=== PATIENT | male | born 1950 | race African-American/Black ===

== ENCOUNTER 2018-07-03 12:17 | Inpatient (IN) | payer MEDICARE, MEDICAID ==
[~2018-07-03] VITALS: Ht 175.3 cm; Wt 104.8 kg
[~2018-07-03 12:17] MED LIST: ASPI-1159 PO; FURO-152 PO; INSU100V3 SUBCUT; LISI2.5T47 PO
[2018-07-03] MEDS ORDERED: FUROSEMIDE 40MG/4ML VIAL IV ONE (12:30)
[2018-07-03] MEDS ORDERED: NITROGLYCERIN OINT 1GM/INCH UDPKT TD ONE (12:30)
[2018-07-03] MEDS ORDERED: ASPIRIN 81MG TABLET PO ONE (12:30)
[2018-07-03] MEDS ORDERED: METOLAZONE 2.5MG TABLET PO ONE (12:30)
[2018-07-03 14:15] LABS: BASOPHILS % 0.6 % (0.0-2.0); EOSINOPHILS % 1.5 % (0.0-5.0); HEMATOCRIT. 41.9 % (42.0-52.0); HEMOGLOBIN. 13.6 g/dL (14.0-18.0); LYMPHOCYTES % 14.8 % (20.0-50.0); MEAN CORPUSCULAR HEMOGLOBIN 30.4 pg (28.0-32.0); MEAN CORPUSCULAR VOLUME 93.2 fL (80.0-94.0); MEAN PLATELET VOLUME 7.7 fl (7.4-10.4); MONOCYTES % 12.3 % (2.0-8.0); NEUTROPHILS % 70.8 % (40.0-76.0); PLATELET 202 x1000/uL (130-400); RED BLOOD CELL COUNT 4.49 mill/uL (4.7-6.1); RED CELL DISTRIBUTION WIDTH 14.9 % (11.6-14.6)
[2018-07-03 14:23] LABS: CHLORIDE 95 mEq/L (98-107)
[2018-07-03 14:24] LABS: INR 1.1; PARTIAL THROMBOPLASTIN TIME 28.1 sec (23.4-31.0); PROTHROMBIN TIME 10.9 sec (9.1-11.1)
[2018-07-03 15:14] LABS: CLARITY URINE CLEAR (CLEAR); COLOR URINE YELLOW (YELLOW); KETONES URINE NEGATIVE (NEGATIVE); LEUKOCYTE ESTERASE URINE NEGATIVE (NEGATIVE); NITRITE URINE NEGATIVE (NEGATIVE); OCCULT BLOOD URINE NEGATIVE (NEGATIVE); PROTEIN URINE TRACE (NEGATIVE)
[2018-07-03] MEDS ORDERED: IPRATROPIUM/ALBUTEROL 0.5-3(2.5)MG/3ML NEB HHN PRN (16:30)
[2018-07-03 17:08] LABS: BG BASE EXCESS 7.6 mmol/L (-2.0-2.0); BG BILEVEL POS AIRWAY PRESSURE 15/5; BG CARBOXYHEMOGLOBIN 2.4 % (0.5-1.5); BG DEOXYHEMOGLOBIN 0.4 % (0.0-5.0); BG FRACTION INSPIRED OXYGEN 100; BG HCO3 ACT 35.7 mmol/L (22.0-26.0); BG METHEMOGLOBIN 0.4 % (0.0-1.5); BG OXYGEN SATURATION 99.6 % (92.0-98.5); BG OXYHEMOGLOBIN 96.8 % (94.0-97.0); BG PCO2 66.6 mmHg (35.0-45.0); BG PH 7.347 (7.350-7.450); BG PO2 342.5 mmHg (75.0-100.0); BG SAMPLE SITE RIGHT RADIAL; BG TOTAL HEMOGLOBIN 13.9 g/dL (12.0-18.0); BG VENT MODE MASK - BIPAP; BG VENT RATE 16 set
[2018-07-03 17:54] VITALS: BP 126/68
[2018-07-03 18:17] VITALS: BP 126/68
[2018-07-03] MEDS ORDERED: IPRATROPIUM/ALBUTEROL 0.5-3(2.5)MG/3ML NEB INH PRN (19:15)
[2018-07-03] MEDS ORDERED: DEXTROSE 50% WATER 50ML SYRINGE IV PRN (19:15)
[2018-07-03] MEDS ORDERED: ACETAMINOPHEN 325MG TABLET PO PRN (19:15)
[2018-07-03] MEDS ORDERED: DIPHENHYDRAMINE 50MG/ML VIAL IV PRN (19:15)
[2018-07-03] MEDS ORDERED: CLONIDINE 0.1MG TABLET PO PRN (19:15)
[2018-07-03] MEDS ORDERED: GUAIFENESIN 200MG/10ML SUGAR FREE UDC PO PRN (19:15)
[2018-07-03] MEDS ORDERED: MAGNESIUM/ALUMINUM HYDROXIDE/SIMETHICONE 30ML UDC PO PRN (19:15)
[2018-07-03] MEDS ORDERED: ONDANSETRON HCL 4MG/2ML VIAL IV PRN (19:15)
[2018-07-03 19:43] LABS: CLARITY URINE CLEAR (CLEAR); COLOR URINE YELLOW (YELLOW); KETONES URINE NEGATIVE (NEGATIVE); LEUKOCYTE ESTERASE URINE NEGATIVE (NEGATIVE); NITRITE URINE NEGATIVE (NEGATIVE); OCCULT BLOOD URINE NEGATIVE (NEGATIVE); PROTEIN URINE NEGATIVE (NEGATIVE); SPECIFIC GRAVITY URINE 1.007 (1.005-1.030)
[2018-07-03 20:00] VITALS: BP 126/68
[2018-07-03] MEDS ORDERED: IPRATROPIUM/ALBUTEROL 0.5-3(2.5)MG/3ML NEB HHN SCH (20:00)
[2018-07-03 20:03] LABS: *BARBITURATES SCREEN URINE NEGATIVE (NEGATIVE); *BENZODIAZEPINES SCREEN URINE NEGATIVE (NEGATIVE); *COCAINE SCREEN URINE NEGATIVE (NEGATIVE); METHADONE URINE SCREEN PRESUMTIVE POSITIVE (NEGATIVE); OPIATES URINE SCREEN PRESUMTIVE POSITIVE (NEGATIVE)
[2018-07-03 20:04] LABS: *AMPHETAMINES SCREEN URINE NEGATIVE (NEGATIVE); CANNABINOID URINE SCREEN NEGATIVE (NEGATIVE); PHENCYCLIDINE URINE SCREEN NEGATIVE (NEGATIVE)
[2018-07-03 20:09] LABS: T4 FREE 1.08 ng/dL (0.76-1.46)
[2018-07-03] MEDS: BLOOD SUGAR DIAGNOSTIC STRIP TEST SCH (21:00)
[2018-07-03] MEDS: INSULIN LISPRO 100 UNITS/ML SUBCUT SCH (21:00)
[2018-07-03] MEDS: FAMOTIDINE 20MG TABLET PO SCH (21:00)
[2018-07-03] MEDS ORDERED: AMLODIPINE 2.5MG TABLET PO SCH (21:00)
[2018-07-03] MEDS: BUDESONIDE 0.5MG/2ML NEB HHN SCH (21:43)
[2018-07-03] MEDS: IPRATROPIUM/ALBUTEROL 0.5-3(2.5)MG/3ML NEB HHN SCH (21:43)
[2018-07-03 22:00] VITALS: BP 125/72
[2018-07-03] MEDS: INSULIN GLARGINE UD 100 UNITS/ML SYR SUBCUT SCH (22:00)
[2018-07-03] MEDS: SODIUM CHLORIDE 0.9% INJ 3ML FLUSH IVF SCH (22:00)
[2018-07-03] MEDS: METOLAZONE 10MG TABLET PO SCH (22:30)
[2018-07-04] VITALS (13 sets, daily range): BP systolic 94–138; BP diastolic 58–78
[2018-07-04] MEDS: IPRATROPIUM/ALBUTEROL 0.5-3(2.5)MG/3ML NEB HHN SCH ×4 (01:36→21:12)
[2018-07-04] MEDS: SODIUM CHLORIDE 0.9% INJ 3ML FLUSH IVF SCH ×3 (06:38→22:11)
[2018-07-04 07:05] LABS: CHLORIDE 96 mEq/L (98-107)
[2018-07-04 07:14] LABS: LDL CHOLESTEROL 59 mg/dL (5-100)
[2018-07-04 07:16] LABS: HDL CHOLESTEROL 53 mg/dL (40-59)
[2018-07-04 07:18] LABS: HEMATOCRIT. 39.4 % (42.0-52.0); HEMOGLOBIN. 12.9 g/dL (14.0-18.0); MEAN CORPUSCULAR HEMOGLOBIN 30.5 pg (28.0-32.0); MEAN CORPUSCULAR VOLUME 93.3 fL (80.0-94.0); PLATELET 181 x1000/uL (130-400); RED BLOOD CELL COUNT 4.22 mill/uL (4.7-6.1); RED CELL DISTRIBUTION WIDTH 14.9 % (11.6-14.6)
[2018-07-04] MEDS: INSULIN LISPRO 100 UNITS/ML SUBCUT SCH ×4 (07:20→21:00)
[2018-07-04] MEDS: METOLAZONE 10MG TABLET PO SCH (08:06)
[2018-07-04] MEDS: ASPIRIN 81MG EC TABLET PO SCH (08:42)
[2018-07-04] MEDS: FUROSEMIDE 40MG/4ML VIAL IVP SCH (08:42)
[2018-07-04] MEDS: BUDESONIDE 0.5MG/2ML NEB HHN SCH ×2 (08:58→21:12)
[2018-07-04] MEDS ORDERED: ENOXAPARIN 40MG/0.4ML SYR SUBCUT SCH (09:00)
[2018-07-04] MEDS ORDERED: AMLODIPINE 2.5MG TABLET PO SCH ×2 (09:00)
[2018-07-04] MEDS: INSULIN GLARGINE UD 100 UNITS/ML SYR SUBCUT SCH ×2 (09:39→21:58)
[2018-07-04] MEDS: BLOOD SUGAR DIAGNOSTIC STRIP TEST SCH ×3 (11:50→21:00)
[2018-07-04] MEDS: METHADONE HCL 10MG TABLET PO SCH (13:44)
[2018-07-04] MEDS: TAMSULOSIN HCL 0.4MG SR CAPSULE PO SCH (13:45)
[2018-07-04] MEDS ORDERED: HEPARIN 100 UNITS/1 ML VIAL IVF PRN (15:15)
[2018-07-04 15:58] LABS: BG BASE EXCESS 4.7 mmol/L (-2.0-2.0); BG CARBOXYHEMOGLOBIN 1.2 % (0.5-1.5); BG DEOXYHEMOGLOBIN 23.3 % (0.0-5.0); BG HCO3 ACT 31.1 mmol/L (22.0-26.0); BG METHEMOGLOBIN 0.3 % (0.0-1.5); BG OXYGEN SATURATION 76.3 % (92.0-98.5); BG OXYHEMOGLOBIN 75.2 % (94.0-97.0); BG PCO2 53.3 mmHg (35.0-45.0); BG PH 7.384 (7.350-7.450); BG PO2 43.1 mmHg (75.0-100.0); BG SAMPLE SITE LEFT RADIAL; BG TOTAL HEMOGLOBIN 14.5 g/dL (12.0-18.0); BG VENT MODE NASAL CANNULA
[2018-07-04 20:48] LABS: PLATELET ESTIMATE NORMAL
[2018-07-04] MEDS: ENOXAPARIN 30MG/0.3ML SYR SUBCUT SCH (21:00)
[2018-07-04] MEDS: FAMOTIDINE 20MG TABLET PO SCH (21:56)
[2018-07-04] MEDS: AMLODIPINE 2.5MG TABLET PO SCH (22:06)
[2018-07-05] VITALS (12 sets, daily range): BP systolic 106–145; BP diastolic 57–89
[2018-07-05] MEDS: IPRATROPIUM/ALBUTEROL 0.5-3(2.5)MG/3ML NEB HHN SCH ×5 (00:12→21:00)
[2018-07-05] MEDS: SODIUM CHLORIDE 0.9% INJ 3ML FLUSH IVF SCH ×3 (06:54→21:46)
[2018-07-05] MEDS: BLOOD SUGAR DIAGNOSTIC STRIP TEST SCH ×4 (06:54→21:43)
[2018-07-05] MEDS: INSULIN LISPRO 100 UNITS/ML SUBCUT SCH ×4 (07:20→21:00)
[2018-07-05] MEDS: BUDESONIDE 0.5MG/2ML NEB HHN SCH ×2 (07:45→21:00)
[2018-07-05 07:50] LABS: HEMATOCRIT. 40.9 % (42.0-52.0); HEMOGLOBIN. 13.2 g/dL (14.0-18.0); MEAN CORPUSCULAR HEMOGLOBIN 29.8 pg (28.0-32.0); MEAN CORPUSCULAR VOLUME 92.1 fL (80.0-94.0); MEAN PLATELET VOLUME 7.8 fl (7.4-10.4); PLATELET 182 x1000/uL (130-400); RED BLOOD CELL COUNT 4.44 mill/uL (4.7-6.1); RED CELL DISTRIBUTION WIDTH 14.2 % (11.6-14.6)
[2018-07-05 07:58] LABS: CHLORIDE 92 mEq/L (98-107)
[2018-07-05 08:05] LABS: CREATINE KINASE MB FRACTION 2.2 ng/mL (0.5-3.6); LDL CHOLESTEROL 63 mg/dL (5-100)
[2018-07-05 08:06] LABS: CREATINE KINASE 170 IU/L (39-308)
[2018-07-05 08:07] LABS: HDL CHOLESTEROL 56 mg/dL (40-59)
[2018-07-05] MEDS: TAMSULOSIN HCL 0.4MG SR CAPSULE PO SCH (08:31)
[2018-07-05] MEDS: METHADONE HCL 10MG TABLET PO SCH (08:31)
[2018-07-05] MEDS: ASPIRIN 81MG EC TABLET PO SCH (08:32)
[2018-07-05] MEDS: AMLODIPINE 2.5MG TABLET PO SCH ×3 (08:32→21:26)
[2018-07-05] MEDS: FUROSEMIDE 40MG/4ML VIAL IVP SCH (08:32)
[2018-07-05] MEDS: ENOXAPARIN 30MG/0.3ML SYR SUBCUT SCH ×2 (08:33→21:26)
[2018-07-05] MEDS: METOLAZONE 10MG TABLET PO SCH (08:33)
[2018-07-05 09:30] LABS: BG CARBOXYHEMOGLOBIN 1.2 % (0.5-1.5); BG DEOXYHEMOGLOBIN 14.6 % (0.0-5.0); BG FRACTION INSPIRED OXYGEN 34; BG HCO3 ACT 37.5 mmol/L (22.0-26.0); BG METHEMOGLOBIN 0.3 % (0.0-1.5); BG OXYGEN SATURATION 85.2 % (92.0-98.5); BG OXYHEMOGLOBIN 83.9 % (94.0-97.0); BG PCO2 62.3 mmHg (35.0-45.0); BG PH 7.397 (7.350-7.450); BG PO2 52.9 mmHg (75.0-100.0); BG SAMPLE SITE RIGHT RADIAL; BG TOTAL HEMOGLOBIN 14.9 g/dL (12.0-18.0); BG VENT MODE NASAL CANNULA
[2018-07-05] MEDS: INSULIN GLARGINE UD 100 UNITS/ML SYR SUBCUT SCH ×2 (10:00→21:46)
[2018-07-05 14:02] LABS: PLATELET ESTIMATE NORMAL
[2018-07-05] MEDS: FAMOTIDINE 20MG TABLET PO SCH (21:25)
[2018-07-06] VITALS (11 sets, daily range): BP systolic 97–124; BP diastolic 53–93
[2018-07-06] MEDS: IPRATROPIUM/ALBUTEROL 0.5-3(2.5)MG/3ML NEB HHN SCH ×5 (01:43→20:40)
[2018-07-06] MEDS: BLOOD SUGAR DIAGNOSTIC STRIP TEST SCH ×4 (06:58→21:07)
[2018-07-06] MEDS: INSULIN LISPRO 100 UNITS/ML SUBCUT SCH ×4 (06:58→21:00)
[2018-07-06] MEDS: SODIUM CHLORIDE 0.9% INJ 3ML FLUSH IVF SCH ×3 (06:58→22:00)
[2018-07-06 07:26] LABS: CHLORIDE 93 mEq/L (98-107)
[2018-07-06] MEDS: TAMSULOSIN HCL 0.4MG SR CAPSULE PO SCH (08:36)
[2018-07-06] MEDS: METHADONE HCL 10MG TABLET PO SCH (08:36)
[2018-07-06] MEDS: FUROSEMIDE 40MG/4ML VIAL IVP SCH (08:37)
[2018-07-06] MEDS: ASPIRIN 81MG EC TABLET PO SCH (08:37)
[2018-07-06] MEDS: ENOXAPARIN 30MG/0.3ML SYR SUBCUT SCH ×2 (08:37→21:09)
[2018-07-06] MEDS: METOLAZONE 10MG TABLET PO SCH (08:37)
[2018-07-06] MEDS: AMLODIPINE 2.5MG TABLET PO SCH ×2 (08:37→21:00)
[2018-07-06] MEDS: BUDESONIDE 0.5MG/2ML NEB HHN SCH ×2 (09:08→20:40)
[2018-07-06] MEDS: INSULIN GLARGINE UD 100 UNITS/ML SYR SUBCUT SCH ×2 (10:35→21:21)
[2018-07-06] MEDS: FAMOTIDINE 20MG TABLET PO SCH (21:08)
[2018-07-07] VITALS (12 sets, daily range): BP systolic 98–155; BP diastolic 49–96
[2018-07-07] MEDS: IPRATROPIUM/ALBUTEROL 0.5-3(2.5)MG/3ML NEB HHN SCH ×5 (00:46→20:09)
[2018-07-07] MEDS: SODIUM CHLORIDE 0.9% INJ 3ML FLUSH IVF SCH ×3 (06:00→21:07)
[2018-07-07 07:04] LABS: HEMATOCRIT. 38.9 % (42.0-52.0); HEMOGLOBIN. 12.9 g/dL (14.0-18.0); MEAN CORPUSCULAR HEMOGLOBIN 30.3 pg (28.0-32.0); MEAN CORPUSCULAR VOLUME 91.4 fL (80.0-94.0); PLATELET 176 x1000/uL (130-400); RED BLOOD CELL COUNT 4.26 mill/uL (4.7-6.1); RED CELL DISTRIBUTION WIDTH 14.2 % (11.6-14.6)
[2018-07-07] MEDS: INSULIN LISPRO 100 UNITS/ML SUBCUT SCH ×4 (07:20→21:00)
[2018-07-07] MEDS: BLOOD SUGAR DIAGNOSTIC STRIP TEST SCH ×4 (07:26→21:07)
[2018-07-07 07:32] LABS: CHLORIDE 93 mEq/L (98-107)
[2018-07-07] MEDS: METOLAZONE 10MG TABLET PO SCH (08:03)
[2018-07-07] MEDS: METHADONE HCL 10MG TABLET PO SCH (08:04)
[2018-07-07] MEDS: ASPIRIN 81MG EC TABLET PO SCH (08:04)
[2018-07-07] MEDS: ENOXAPARIN 30MG/0.3ML SYR SUBCUT SCH ×2 (08:06→21:07)
[2018-07-07] MEDS: TAMSULOSIN HCL 0.4MG SR CAPSULE PO SCH (08:07)
[2018-07-07] MEDS: AMLODIPINE 2.5MG TABLET PO SCH ×2 (08:07→21:07)
[2018-07-07] MEDS: BUDESONIDE 0.5MG/2ML NEB HHN SCH ×2 (08:23→20:09)
[2018-07-07 09:51] LABS: PLATELET ESTIMATE NORMAL
[2018-07-07] MEDS: INSULIN GLARGINE UD 100 UNITS/ML SYR SUBCUT SCH ×2 (10:00→21:31)
[2018-07-07] MEDS: LIDOCAINE 5% PATCH TOP SCH (20:32)
[2018-07-07] MEDS: FAMOTIDINE 20MG TABLET PO SCH (21:07)
[2018-07-08] VITALS (9 sets, daily range): BP systolic 98–123; BP diastolic 47–74
[2018-07-08] MEDS: IPRATROPIUM/ALBUTEROL 0.5-3(2.5)MG/3ML NEB HHN SCH ×3 (02:09→13:41)
[2018-07-08] MEDS: SODIUM CHLORIDE 0.9% INJ 3ML FLUSH IVF SCH (05:05)
[2018-07-08] MEDS: BLOOD SUGAR DIAGNOSTIC STRIP TEST SCH ×2 (06:05→11:30)
[2018-07-08] MEDS: INSULIN LISPRO 100 UNITS/ML SUBCUT SCH ×2 (07:20→11:31)
[2018-07-08] MEDS: BUDESONIDE 0.5MG/2ML NEB HHN SCH (07:49)
[2018-07-08] MEDS: ENOXAPARIN 30MG/0.3ML SYR SUBCUT SCH (08:11)
[2018-07-08] MEDS: AMLODIPINE 2.5MG TABLET PO SCH (08:12)
[2018-07-08] MEDS: METOLAZONE 10MG TABLET PO SCH (08:12)
[2018-07-08] MEDS: ASPIRIN 81MG EC TABLET PO SCH (08:12)
[2018-07-08] MEDS: TAMSULOSIN HCL 0.4MG SR CAPSULE PO SCH (08:12)
[2018-07-08] MEDS: LIDOCAINE 5% PATCH TOP SCH (08:17)
[2018-07-08] MEDS: METHADONE HCL 10MG TABLET PO SCH (08:18)
[2018-07-08] MEDS: INSULIN GLARGINE UD 100 UNITS/ML SYR SUBCUT SCH (11:27)
== END 2018-07-08 14:12 | DRG 291 ==
LOC: ER 12:24 → 3WST 15:17 → ENRESERV 16:21 → EDBEDREQ 16:25
PROVIDERS: ADMIT Internal Medicine; ATTEND Internal Medicine
PROC: 5A09357 Assistance with Respiratory Ventilation, Less than 24 Consecutive Hours, Continuous Positive Airway Pressure (ICD-10-PCS; 2018-07-03)
PROC: 02HV33Z Insertion of Infusion Device into Superior Vena Cava, Percutaneous Approach (ICD-10-PCS; principal; 2018-07-04)
PROC: B548ZZA Ultrasonography of Superior Vena Cava, Guidance (ICD-10-PCS; 2018-07-04)
PROC: 5A09357 Assistance with Respiratory Ventilation, Less than 24 Consecutive Hours, Continuous Positive Airway Pressure (ICD-10-PCS; 2018-07-05)
PROC: 5A09357 Assistance with Respiratory Ventilation, Less than 24 Consecutive Hours, Continuous Positive Airway Pressure (ICD-10-PCS; 2018-07-07)
PROC: 5A09357 Assistance with Respiratory Ventilation, Less than 24 Consecutive Hours, Continuous Positive Airway Pressure (ICD-10-PCS; 2018-07-08)
DX: I11.0 Hypertensive heart disease with heart failure (principal); J96.00 Acute respiratory failure, unspecified whether with hypoxia or hypercapnia; J44.1 Chronic obstructive pulmonary disease with (acute) exacerbation; F11.20 Opioid dependence, uncomplicated; G82.20 Paraplegia, unspecified; I50.33 Acute on chronic diastolic (congestive) heart failure; E11.9 Type 2 diabetes mellitus without complications; D64.9 Anemia, unspecified; F17.210 Nicotine dependence, cigarettes, uncomplicated; G89.4 Chronic pain syndrome; M43.16 Spondylolisthesis, lumbar region; D72.819 Decreased white blood cell count, unspecified; R79.1 Abnormal coagulation profile; M48.061 Spinal stenosis, lumbar region without neurogenic claudication; Z79.4 Long term (current) use of insulin; Z82.49 Family history of ischemic heart disease and other diseases of the circulatory system; Z83.3 Family history of diabetes mellitus; Z87.01 Personal history of pneumonia (recurrent); Z79.899 Other long term (current) drug therapy; Z79.82 Long term (current) use of aspirin
CPT/HCPCS: 36415; 36569; 36600; 71045; 72148; 76937; 80048; 80053; 80061; 80305; 81003; 82375; 82550; 82553; 82805; 82962; 83036; 83735; 83880; 84439; 84443; 84484; 85025; 85379; 85610; 85730; 93005; 93306; 93970; 94640; 94660; 96374; 97110; 97116; 97162; 97166; 97530; 99285; C1725; C1769; C1892; J1642; J1650; J1815; J1940; J7620; J7626; L8514

== ENCOUNTER 2018-07-08 14:30 | Inpatient (IN) | payer MEDICARE, MEDICAID ==
[~2018-07-08] VITALS: Ht 175.3 cm; Wt 106.6 kg
[2018-07-08 14:29] VITALS: BP 103/60
[2018-07-08 15:00] VITALS: BP 103/60
[2018-07-08] MEDS ORDERED: CLONIDINE 0.1MG TABLET PO PRN (15:15)
[2018-07-08] MEDS ORDERED: DEXTROSE 50% WATER 50ML SYRINGE IV PRN (15:15)
[2018-07-08] MEDS ORDERED: ONDANSETRON HCL 4MG TABLET PO PRN (15:15)
[2018-07-08] MEDS ORDERED: GUAIFENESIN 200MG/10ML SUGAR FREE UDC PO PRN (15:15)
[2018-07-08] MEDS ORDERED: NA PHOS,M-B/NA PHOS,DI-BA ENEMA 118ML PR PRN (16:45)
[2018-07-08] MEDS ORDERED: LACTULOSE 20G/30ML UDC PO PRN (16:45)
[2018-07-08] MEDS ORDERED: BISACODYL 10MG SUPP PR PRN (16:45)
[2018-07-08] MEDS: BLOOD SUGAR DIAGNOSTIC STRIP TEST SCH ×2 (17:00→20:42)
[2018-07-08] MEDS: INSULIN LISPRO 100 UNITS/ML SUBCUT SCH ×2 (17:00→20:42)
[2018-07-08] MEDS ORDERED: DOCUSATE SODIUM 250MG CAPSULE PO SCH (17:00)
[2018-07-08 20:00] VITALS: BP 114/63
[2018-07-08] MEDS: ENOXAPARIN 30MG/0.3ML SYR SUBCUT SCH (20:39)
[2018-07-08] MEDS: POLYETHYLENE GLYCOL 3350 (17GM) 1 DOSE PACK PO SCH (20:41)
[2018-07-08] MEDS: AMLODIPINE 2.5MG TABLET PO SCH (20:42)
[2018-07-08] MEDS: IPRATROPIUM/ALBUTEROL 0.5-3(2.5)MG/3ML NEB HHN SCH (20:59)
[2018-07-08] MEDS ORDERED: FAMOTIDINE 20MG/2ML VIAL IV SCH (21:00)
[2018-07-08] MEDS: BUDESONIDE 0.5MG/2ML NEB HHN SCH (21:00)
[2018-07-08] MEDS: FAMOTIDINE 20MG TABLET PO SCH (21:54)
[2018-07-08] MEDS: INSULIN GLARGINE UD 100 UNITS/ML SYR SUBCUT SCH (22:00)
[2018-07-09] MEDS: ACETAMINOPHEN 325MG TABLET PO PRN (01:31)
[2018-07-09] MEDS: IPRATROPIUM/ALBUTEROL 0.5-3(2.5)MG/3ML NEB HHN SCH ×2 (02:14→21:07)
[2018-07-09] MEDS: BLOOD SUGAR DIAGNOSTIC STRIP TEST SCH ×4 (06:12→21:33)
[2018-07-09 08:00] VITALS: BP 117/68
[2018-07-09] MEDS: POLYETHYLENE GLYCOL 3350 (17GM) 1 DOSE PACK PO SCH ×2 (09:00→09:13)
[2018-07-09] MEDS: INSULIN LISPRO 100 UNITS/ML SUBCUT SCH ×4 (09:00→21:00)
[2018-07-09] MEDS: LIDOCAINE 5% PATCH TOP SCH (09:11)
[2018-07-09] MEDS: ENOXAPARIN 30MG/0.3ML SYR SUBCUT SCH ×2 (09:11→21:34)
[2018-07-09] MEDS: AMLODIPINE 2.5MG TABLET PO SCH ×2 (09:12→21:00)
[2018-07-09] MEDS: TAMSULOSIN HCL 0.4MG SR CAPSULE PO SCH (09:12)
[2018-07-09] MEDS: ASPIRIN 81MG EC TABLET PO SCH (09:12)
[2018-07-09] MEDS: DOCUSATE SODIUM 100MG CAPSULE PO SCH ×2 (09:12→17:15)
[2018-07-09] MEDS: SENNOSIDES 8.6MG TABLET PO SCH (09:12)
[2018-07-09] MEDS: METHADONE HCL 10MG TABLET PO SCH (09:13)
[2018-07-09 10:18] LABS: HEMATOCRIT 42.6 % (42.0-52.0); HEMOGLOBIN 13.8 g/dL (14.0-18.0); MEAN CORPUSCULAR HEMOGLOBIN 30.2 pg (28.0-32.0); MEAN CORPUSCULAR VOLUME 93.2 fL (80.0-94.0); PLATELET 180 x1000/uL (130-400); RED BLOOD CELL COUNT 4.57 mill/uL (4.7-6.1); RED CELL DISTRIBUTION WIDTH 14.6 % (11.6-14.6)
[2018-07-09] MEDS: METOLAZONE 10MG TABLET PO SCH (10:51)
[2018-07-09] MEDS: INSULIN GLARGINE UD 100 UNITS/ML SYR SUBCUT SCH ×2 (10:53→21:33)
[2018-07-09 11:05] LABS: CHLORIDE 94 mEq/L (98-107)
[2018-07-09] MEDS ORDERED: MAGNESIUM/ALUMINUM HYDROXIDE/SIMETHICONE 30ML UDC PO PRN (16:00)
[2018-07-09 20:00] VITALS: BP 91/52
[2018-07-09] MEDS: BUDESONIDE 0.5MG/2ML NEB HHN SCH (21:07)
[2018-07-09] MEDS: FAMOTIDINE 20MG TABLET PO SCH (21:34)
[2018-07-10] VITALS: BP 114/64
[2018-07-10] MEDS: IPRATROPIUM/ALBUTEROL 0.5-3(2.5)MG/3ML NEB HHN SCH ×5 (01:47→19:56)
[2018-07-10] MEDS: BLOOD SUGAR DIAGNOSTIC STRIP TEST SCH ×4 (06:26→21:16)
[2018-07-10] MEDS: INSULIN LISPRO 100 UNITS/ML SUBCUT SCH ×4 (06:26→21:00)
[2018-07-10] MEDS: BUDESONIDE 0.5MG/2ML NEB HHN SCH ×2 (07:14→19:56)
[2018-07-10 08:00] VITALS: BP 109/55
[2018-07-10] MEDS: ASPIRIN 81MG EC TABLET PO SCH (08:41)
[2018-07-10] MEDS: DOCUSATE SODIUM 100MG CAPSULE PO SCH ×2 (08:42→16:54)
[2018-07-10] MEDS: SENNOSIDES 8.6MG TABLET PO SCH (08:42)
[2018-07-10] MEDS: METOLAZONE 10MG TABLET PO SCH (08:42)
[2018-07-10] MEDS: TAMSULOSIN HCL 0.4MG SR CAPSULE PO SCH (08:42)
[2018-07-10] MEDS: METHADONE HCL 10MG TABLET PO SCH (08:43)
[2018-07-10] MEDS: ENOXAPARIN 30MG/0.3ML SYR SUBCUT SCH ×2 (08:44→21:15)
[2018-07-10] MEDS: LIDOCAINE 5% PATCH TOP SCH (08:44)
[2018-07-10] MEDS: POLYETHYLENE GLYCOL 3350 (17GM) 1 DOSE PACK PO SCH (08:46)
[2018-07-10] MEDS: AMLODIPINE 2.5MG TABLET PO SCH ×2 (08:47→21:00)
[2018-07-10] MEDS: INSULIN GLARGINE UD 100 UNITS/ML SYR SUBCUT SCH ×2 (10:25→21:17)
[2018-07-10 20:00] VITALS: BP 103/64
[2018-07-10] MEDS: ACETAMINOPHEN 325MG TABLET PO PRN (21:15)
[2018-07-10] MEDS: FAMOTIDINE 20MG TABLET PO SCH (21:15)
[2018-07-11 05:02] VITALS: BP 108/66
[2018-07-11 07:26] LABS: HEMATOCRIT. 42.5 % (42.0-52.0); HEMOGLOBIN. 13.9 g/dL (14.0-18.0); MEAN CORPUSCULAR HEMOGLOBIN 30.3 pg (28.0-32.0); MEAN CORPUSCULAR VOLUME 92.5 fL (80.0-94.0); MEAN PLATELET VOLUME 8.2 fl (7.4-10.4); PLATELET 197 x1000/uL (130-400); RED BLOOD CELL COUNT 4.59 mill/uL (4.7-6.1); RED CELL DISTRIBUTION WIDTH 14.2 % (11.6-14.6)
[2018-07-11 07:39] LABS: CHLORIDE 95 mEq/L (98-107)
[2018-07-11 07:45] LABS: PHOSPHORUS 3.4 mg/dL (2.5-4.9)
[2018-07-11 07:47] LABS: LDL CHOLESTEROL 71 mg/dL (5-100); TOTAL IRON BINDING CAPACITY 457 ug/dL (250-450)
[2018-07-11 07:48] LABS: HDL CHOLESTEROL 65 mg/dL (40-59)
[2018-07-11 07:49] LABS: PROSTRATE SPECIFIC AG TOTAL 0.48 ng/mL (0.0-4.0)
[2018-07-11 08:00] VITALS: BP 96/66
[2018-07-11] MEDS: ASPIRIN 81MG EC TABLET PO SCH (08:16)
[2018-07-11] MEDS: METOLAZONE 10MG TABLET PO SCH (08:16)
[2018-07-11] MEDS: SENNOSIDES 8.6MG TABLET PO SCH (08:16)
[2018-07-11] MEDS: DOCUSATE SODIUM 100MG CAPSULE PO SCH ×2 (08:16→17:16)
[2018-07-11] MEDS: TAMSULOSIN HCL 0.4MG SR CAPSULE PO SCH (08:17)
[2018-07-11] MEDS: AMLODIPINE 2.5MG TABLET PO SCH ×2 (08:18→21:24)
[2018-07-11] MEDS: LIDOCAINE 5% PATCH TOP SCH (08:18)
[2018-07-11] MEDS: POLYETHYLENE GLYCOL 3350 (17GM) 1 DOSE PACK PO SCH (08:18)
[2018-07-11] MEDS: ENOXAPARIN 30MG/0.3ML SYR SUBCUT SCH ×2 (08:18→21:20)
[2018-07-11 08:22] LABS: FOLIC ACID (FOLATE) SERUM 18.6 ng/mL (>5.38)
[2018-07-11] MEDS: METHADONE HCL 10MG TABLET PO SCH (08:28)
[2018-07-11] MEDS: INSULIN LISPRO 100 UNITS/ML SUBCUT SCH ×4 (08:29→21:00)
[2018-07-11] MEDS: INSULIN GLARGINE UD 100 UNITS/ML SYR SUBCUT SCH ×2 (10:42→22:00)
[2018-07-11] MEDS: BLOOD SUGAR DIAGNOSTIC STRIP TEST SCH ×3 (11:57→21:20)
[2018-07-11 13:09] LABS: PLATELET ESTIMATE NORMAL
[2018-07-11] MEDS ORDERED: FUROSEMIDE 40MG TABLET PO NR (13:15)
[2018-07-11 20:00] VITALS: BP 141/66
[2018-07-11] MEDS: IPRATROPIUM/ALBUTEROL 0.5-3(2.5)MG/3ML NEB HHN SCH (20:23)
[2018-07-11] MEDS: FAMOTIDINE 20MG TABLET PO SCH (21:19)
[2018-07-11] MEDS: ACETAMINOPHEN 325MG TABLET PO PRN (21:19)
[2018-07-12] MEDS: BUDESONIDE 0.5MG/2ML NEB HHN SCH ×3 (02:50→21:29)
[2018-07-12] MEDS: IPRATROPIUM/ALBUTEROL 0.5-3(2.5)MG/3ML NEB HHN SCH ×8 (02:50→21:29)
[2018-07-12] MEDS: BLOOD SUGAR DIAGNOSTIC STRIP TEST SCH ×4 (06:29→20:47)
[2018-07-12] MEDS: INSULIN LISPRO 100 UNITS/ML SUBCUT SCH ×4 (06:30→21:00)
[2018-07-12 08:00] VITALS: BP_SYST 106; BP_SYST 122; BP_DIAS 61; BP_DIAS 63
[2018-07-12] MEDS: POLYETHYLENE GLYCOL 3350 (17GM) 1 DOSE PACK PO SCH (09:00)
[2018-07-12] MEDS: METHADONE HCL 10MG TABLET PO SCH (09:29)
[2018-07-12] MEDS: ENOXAPARIN 30MG/0.3ML SYR SUBCUT SCH ×2 (09:30→20:47)
[2018-07-12] MEDS: METOLAZONE 10MG TABLET PO SCH (09:30)
[2018-07-12] MEDS: LIDOCAINE 5% PATCH TOP SCH (09:30)
[2018-07-12] MEDS: AMLODIPINE 2.5MG TABLET PO SCH ×2 (09:31→20:46)
[2018-07-12] MEDS: DOCUSATE SODIUM 100MG CAPSULE PO SCH ×2 (09:31→17:00)
[2018-07-12] MEDS: SENNOSIDES 8.6MG TABLET PO SCH (09:31)
[2018-07-12] MEDS: ASPIRIN 81MG EC TABLET PO SCH (09:31)
[2018-07-12] MEDS: TAMSULOSIN HCL 0.4MG SR CAPSULE PO SCH (09:31)
[2018-07-12] MEDS: INSULIN GLARGINE UD 100 UNITS/ML SYR SUBCUT SCH ×2 (11:21→20:47)
[2018-07-12] MEDS: TERBINAFINE HCL 1% CREAM 30GM TOP SCH (11:24)
[2018-07-12 17:22] LABS: T4 FREE 1.02 ng/dL (0.76-1.46)
[2018-07-12] MEDS ORDERED: FUROSEMIDE 40MG TABLET PO NR (17:30)
[2018-07-12 20:00] VITALS: BP 112/68
[2018-07-12] MEDS: FAMOTIDINE 20MG TABLET PO SCH (20:46)
[2018-07-12] MEDS: ACETAMINOPHEN 325MG TABLET PO PRN (21:35)
[2018-07-13] MEDS: IPRATROPIUM/ALBUTEROL 0.5-3(2.5)MG/3ML NEB HHN SCH ×4 (01:33→21:41)
[2018-07-13] MEDS: BLOOD SUGAR DIAGNOSTIC STRIP TEST SCH ×4 (05:54→20:27)
[2018-07-13] MEDS: INSULIN LISPRO 100 UNITS/ML SUBCUT SCH ×4 (05:55→20:40)
[2018-07-13] MEDS: ACETAMINOPHEN 325MG TABLET PO PRN (05:56)
[2018-07-13 06:51] LABS: CHLORIDE 92 mEq/L (98-107)
[2018-07-13 06:53] LABS: HEMATOCRIT. 39.7 % (42.0-52.0); HEMOGLOBIN. 13.1 g/dL (14.0-18.0); MEAN CORPUSCULAR HEMOGLOBIN 30.5 pg (28.0-32.0); MEAN CORPUSCULAR VOLUME 92.3 fL (80.0-94.0); RED BLOOD CELL COUNT 4.31 mill/uL (4.7-6.1); RED CELL DISTRIBUTION WIDTH 14.3 % (11.6-14.6)
[2018-07-13 07:26] LABS: T4 FREE 1.03 ng/dL (0.76-1.46)
[2018-07-13 08:00] VITALS: BP 125/76
[2018-07-13 08:25] VITALS: BP 125/76
[2018-07-13] MEDS: ASPIRIN 81MG EC TABLET PO SCH (08:25)
[2018-07-13] MEDS: METHADONE HCL 10MG TABLET PO SCH (08:25)
[2018-07-13] MEDS: AMLODIPINE 2.5MG TABLET PO SCH ×2 (08:26→20:27)
[2018-07-13] MEDS: SENNOSIDES 8.6MG TABLET PO SCH (08:26)
[2018-07-13] MEDS: TAMSULOSIN HCL 0.4MG SR CAPSULE PO SCH (08:26)
[2018-07-13] MEDS: POLYETHYLENE GLYCOL 3350 (17GM) 1 DOSE PACK PO SCH (08:27)
[2018-07-13] MEDS: LIDOCAINE 5% PATCH TOP SCH (08:28)
[2018-07-13] MEDS: DOCUSATE SODIUM 100MG CAPSULE PO SCH ×2 (08:28→16:31)
[2018-07-13] MEDS: METOLAZONE 10MG TABLET PO SCH (08:28)
[2018-07-13] MEDS: ENOXAPARIN 30MG/0.3ML SYR SUBCUT SCH ×2 (08:29→20:27)
[2018-07-13 08:43] LABS: PLATELET 194 x1000/uL (130-400); PLATELET ESTIMATE NORMAL
[2018-07-13] MEDS: TERBINAFINE HCL 1% CREAM 30GM TOP SCH (09:00)
[2018-07-13] MEDS: INSULIN GLARGINE UD 100 UNITS/ML SYR SUBCUT SCH ×2 (10:00→22:00)
[2018-07-13] MEDS ORDERED: ENOXAPARIN 100MG/ML SYR SUBCUT SCH (17:00)
[2018-07-13 20:00] VITALS: BP 133/62
[2018-07-13] MEDS: FAMOTIDINE 20MG TABLET PO SCH (20:26)
[2018-07-13] MEDS: DIPHENHYDRAMINE 12.5MG/5ML UDC PO PRN (20:33)
[2018-07-13] MEDS: BUDESONIDE 0.5MG/2ML NEB HHN SCH (21:41)
[2018-07-14] MEDS: IPRATROPIUM/ALBUTEROL 0.5-3(2.5)MG/3ML NEB HHN SCH ×4 (01:03→18:36)
[2018-07-14] MEDS: BLOOD SUGAR DIAGNOSTIC STRIP TEST SCH ×5 (07:26→23:18)
[2018-07-14] MEDS: METOLAZONE 10MG TABLET PO SCH ×2 (07:27→08:18)
[2018-07-14] MEDS: BUDESONIDE 0.5MG/2ML NEB HHN SCH ×2 (07:43→18:36)
[2018-07-14 08:00] VITALS: BP 112/69
[2018-07-14] MEDS: ENOXAPARIN 30MG/0.3ML SYR SUBCUT SCH ×2 (08:17→22:53)
[2018-07-14] MEDS: DOCUSATE SODIUM 100MG CAPSULE PO SCH ×2 (08:17→16:21)
[2018-07-14] MEDS: TAMSULOSIN HCL 0.4MG SR CAPSULE PO SCH (08:18)
[2018-07-14] MEDS: SENNOSIDES 8.6MG TABLET PO SCH (08:18)
[2018-07-14] MEDS: ASPIRIN 81MG EC TABLET PO SCH (08:18)
[2018-07-14] MEDS: METHADONE HCL 10MG TABLET PO SCH (08:19)
[2018-07-14] MEDS: POLYETHYLENE GLYCOL 3350 (17GM) 1 DOSE PACK PO SCH (08:19)
[2018-07-14] MEDS: AMLODIPINE 2.5MG TABLET PO SCH ×2 (08:19→22:55)
[2018-07-14] MEDS: LIDOCAINE 5% PATCH TOP SCH (08:20)
[2018-07-14] MEDS: TERBINAFINE HCL 1% CREAM 30GM TOP SCH (08:20)
[2018-07-14] MEDS: INSULIN LISPRO 100 UNITS/ML SUBCUT SCH ×4 (08:20→21:00)
[2018-07-14] MEDS: INSULIN GLARGINE UD 100 UNITS/ML SYR SUBCUT SCH ×2 (11:32→23:17)
[2018-07-14 20:00] VITALS: BP 130/71
[2018-07-14] MEDS: FAMOTIDINE 20MG TABLET PO SCH (22:55)
[2018-07-15] MEDS: IPRATROPIUM/ALBUTEROL 0.5-3(2.5)MG/3ML NEB HHN SCH ×4 (02:24→19:50)
[2018-07-15 08:00] VITALS: BP 110/65
[2018-07-15] MEDS: ENOXAPARIN 30MG/0.3ML SYR SUBCUT SCH ×2 (08:33→20:36)
[2018-07-15] MEDS: POLYETHYLENE GLYCOL 3350 (17GM) 1 DOSE PACK PO SCH (08:34)
[2018-07-15] MEDS: LIDOCAINE 5% PATCH TOP SCH (08:34)
[2018-07-15] MEDS: AMLODIPINE 2.5MG TABLET PO SCH ×2 (08:35→20:35)
[2018-07-15] MEDS: ASPIRIN 81MG EC TABLET PO SCH (08:35)
[2018-07-15] MEDS: TAMSULOSIN HCL 0.4MG SR CAPSULE PO SCH (08:35)
[2018-07-15] MEDS: DOCUSATE SODIUM 100MG CAPSULE PO SCH ×2 (08:35→17:00)
[2018-07-15] MEDS: METHADONE HCL 10MG TABLET PO SCH (08:36)
[2018-07-15] MEDS: SENNOSIDES 8.6MG TABLET PO SCH (08:36)
[2018-07-15] MEDS: TERBINAFINE HCL 1% CREAM 30GM TOP SCH (08:44)
[2018-07-15] MEDS: INSULIN LISPRO 100 UNITS/ML SUBCUT SCH ×4 (09:00→20:45)
[2018-07-15] MEDS: INSULIN GLARGINE UD 100 UNITS/ML SYR SUBCUT SCH ×2 (11:00→23:45)
[2018-07-15] MEDS: BLOOD SUGAR DIAGNOSTIC STRIP TEST SCH ×3 (11:41→20:37)
[2018-07-15] MEDS: IPRATROPIUM/ALBUTEROL 0.5-3(2.5)MG/3ML NEB HHN PRN (15:05)
[2018-07-15 19:10] LABS: 25-HYDROXY VITAMIN D3 15 ng/mL (.)
[2018-07-15] MEDS: MAGNESIUM/ALUMINUM HYDROXIDE/SIMETHICONE 30ML UDC PO PRN (19:48)
[2018-07-15 20:00] VITALS: BP 113/62
[2018-07-15] MEDS: ACETAMINOPHEN 325MG TABLET PO PRN (20:33)
[2018-07-15] MEDS: FAMOTIDINE 20MG TABLET PO SCH (20:35)
[2018-07-16] MEDS: IPRATROPIUM/ALBUTEROL 0.5-3(2.5)MG/3ML NEB HHN SCH ×4 (01:32→20:17)
[2018-07-16] MEDS: BLOOD SUGAR DIAGNOSTIC STRIP TEST SCH ×4 (06:00→21:00)
[2018-07-16 08:00] VITALS: BP 116/68
[2018-07-16] MEDS: POLYETHYLENE GLYCOL 3350 (17GM) 1 DOSE PACK PO SCH ×2 (09:00→19:47)
[2018-07-16] MEDS: INSULIN LISPRO 100 UNITS/ML SUBCUT SCH ×4 (09:00→21:00)
[2018-07-16] MEDS: SENNOSIDES 8.6MG TABLET PO SCH (09:49)
[2018-07-16] MEDS: ASPIRIN 81MG EC TABLET PO SCH (09:49)
[2018-07-16] MEDS: TAMSULOSIN HCL 0.4MG SR CAPSULE PO SCH (09:49)
[2018-07-16] MEDS: DOCUSATE SODIUM 100MG CAPSULE PO SCH ×2 (09:50→16:43)
[2018-07-16] MEDS: AMLODIPINE 2.5MG TABLET PO SCH ×2 (09:50→22:36)
[2018-07-16] MEDS: METHADONE HCL 10MG TABLET PO SCH (09:51)
[2018-07-16] MEDS: ENOXAPARIN 30MG/0.3ML SYR SUBCUT SCH ×2 (09:52→22:37)
[2018-07-16] MEDS: LIDOCAINE 5% PATCH TOP SCH ×2 (09:53→11:44)
[2018-07-16] MEDS: INSULIN GLARGINE UD 100 UNITS/ML SYR SUBCUT SCH ×2 (11:10→22:00)
[2018-07-16] MEDS: TERBINAFINE HCL 1% CREAM 30GM TOP SCH (11:33)
[2018-07-16] MEDS: METOLAZONE 10MG TABLET PO SCH (12:21)
[2018-07-16] MEDS: LIDOCAINE HCL 4% CREAM 76GM TUBE TP SCH ×2 (13:40→18:20)
[2018-07-16 20:00] VITALS: BP 110/64
[2018-07-16] MEDS: FAMOTIDINE 20MG TABLET PO SCH (22:37)
[2018-07-17] MEDS: IPRATROPIUM/ALBUTEROL 0.5-3(2.5)MG/3ML NEB HHN SCH ×4 (01:03→20:36)
[2018-07-17] MEDS: IPRATROPIUM/ALBUTEROL 0.5-3(2.5)MG/3ML NEB HHN PRN (03:42)
[2018-07-17] MEDS: INSULIN LISPRO 100 UNITS/ML SUBCUT SCH ×4 (06:28→21:00)
[2018-07-17] MEDS: BLOOD SUGAR DIAGNOSTIC STRIP TEST SCH ×4 (06:28→21:21)
[2018-07-17 06:45] LABS: HEMATOCRIT. 39.7 % (42.0-52.0); HEMOGLOBIN. 13.3 g/dL (14.0-18.0); MEAN CORPUSCULAR HEMOGLOBIN 30.9 pg (28.0-32.0); MEAN PLATELET VOLUME 9.1 fl (7.4-10.4); PLATELET 202 x1000/uL (130-400); RED BLOOD CELL COUNT 4.32 mill/uL (4.7-6.1); RED CELL DISTRIBUTION WIDTH 14.5 % (11.6-14.6)
[2018-07-17 06:49] LABS: CHLORIDE 93 mEq/L (98-107)
[2018-07-17 08:00] VITALS: BP 110/56
[2018-07-17] MEDS: AMLODIPINE 2.5MG TABLET PO SCH ×2 (09:00→21:23)
[2018-07-17] MEDS: ENOXAPARIN 30MG/0.3ML SYR SUBCUT SCH ×2 (09:25→21:21)
[2018-07-17] MEDS: LIDOCAINE 5% PATCH TOP SCH ×2 (09:26)
[2018-07-17] MEDS: SENNOSIDES 8.6MG TABLET PO SCH (09:26)
[2018-07-17] MEDS: POLYETHYLENE GLYCOL 3350 (17GM) 1 DOSE PACK PO SCH (09:26)
[2018-07-17] MEDS: TAMSULOSIN HCL 0.4MG SR CAPSULE PO SCH (09:27)
[2018-07-17] MEDS: ASPIRIN 81MG EC TABLET PO SCH (09:27)
[2018-07-17] MEDS: DOCUSATE SODIUM 100MG CAPSULE PO SCH ×2 (09:27→17:36)
[2018-07-17] MEDS: METOLAZONE 10MG TABLET PO SCH (09:27)
[2018-07-17] MEDS: METHADONE HCL 10MG TABLET PO SCH (09:29)
[2018-07-17] MEDS: TERBINAFINE HCL 1% CREAM 30GM TOP SCH (09:32)
[2018-07-17] MEDS: LIDOCAINE HCL 4% CREAM 76GM TUBE TP SCH ×3 (09:33→17:37)
[2018-07-17] MEDS: INSULIN GLARGINE UD 100 UNITS/ML SYR SUBCUT SCH ×2 (09:37→21:22)
[2018-07-17 13:35] LABS: PLATELET ESTIMATE NORMAL
[2018-07-17 20:00] VITALS: BP 127/68
[2018-07-17] MEDS: FAMOTIDINE 20MG TABLET PO SCH (21:22)
[2018-07-17] MEDS: ACETAMINOPHEN 325MG TABLET PO PRN (23:44)
[2018-07-18] MEDS: BLOOD SUGAR DIAGNOSTIC STRIP TEST SCH ×4 (06:02→21:00)
[2018-07-18] MEDS: INSULIN LISPRO 100 UNITS/ML SUBCUT SCH ×4 (06:03→21:00)
[2018-07-18] MEDS: IPRATROPIUM/ALBUTEROL 0.5-3(2.5)MG/3ML NEB HHN SCH ×3 (07:48→19:54)
[2018-07-18 08:00] VITALS: BP 115/71
[2018-07-18] MEDS: LIDOCAINE 5% PATCH TOP SCH ×2 (08:53→08:58)
[2018-07-18] MEDS: POLYETHYLENE GLYCOL 3350 (17GM) 1 DOSE PACK PO SCH (08:54)
[2018-07-18] MEDS: ENOXAPARIN 30MG/0.3ML SYR SUBCUT SCH ×2 (08:54→21:59)
[2018-07-18] MEDS: METHADONE HCL 10MG TABLET PO SCH (08:55)
[2018-07-18] MEDS: ASPIRIN 81MG EC TABLET PO SCH (08:55)
[2018-07-18] MEDS: SENNOSIDES 8.6MG TABLET PO SCH (08:56)
[2018-07-18] MEDS: AMLODIPINE 2.5MG TABLET PO SCH ×2 (08:56→22:00)
[2018-07-18] MEDS: TAMSULOSIN HCL 0.4MG SR CAPSULE PO SCH (08:56)
[2018-07-18] MEDS: METOLAZONE 10MG TABLET PO SCH (08:56)
[2018-07-18] MEDS: DOCUSATE SODIUM 100MG CAPSULE PO SCH ×2 (08:56→17:38)
[2018-07-18] MEDS: LIDOCAINE HCL 4% CREAM 76GM TUBE TP SCH ×3 (08:56→17:00)
[2018-07-18] MEDS: TERBINAFINE HCL 1% CREAM 30GM TOP SCH (08:57)
[2018-07-18] MEDS: INSULIN GLARGINE UD 100 UNITS/ML SYR SUBCUT SCH ×2 (09:09→22:00)
[2018-07-18 20:00] VITALS: BP 131/65
[2018-07-18] MEDS: FAMOTIDINE 20MG TABLET PO SCH (22:00)
[2018-07-19] MEDS: IPRATROPIUM/ALBUTEROL 0.5-3(2.5)MG/3ML NEB HHN SCH ×4 (02:42→21:00)
[2018-07-19] MEDS: IPRATROPIUM/ALBUTEROL 0.5-3(2.5)MG/3ML NEB HHN PRN (03:34)
[2018-07-19] MEDS: MAGNESIUM/ALUMINUM HYDROXIDE/SIMETHICONE 30ML UDC PO PRN (03:37)
[2018-07-19] MEDS: BLOOD SUGAR DIAGNOSTIC STRIP TEST SCH ×4 (07:03→21:00)
[2018-07-19] MEDS: INSULIN LISPRO 100 UNITS/ML SUBCUT SCH ×4 (07:35→21:00)
[2018-07-19 07:56] VITALS: BP 114/66
[2018-07-19] MEDS: TERBINAFINE HCL 1% CREAM 30GM TOP SCH (09:00)
[2018-07-19] MEDS: LIDOCAINE HCL 4% CREAM 76GM TUBE TP SCH ×3 (09:00→17:43)
[2018-07-19] MEDS: LIDOCAINE 5% PATCH TOP SCH ×2 (09:00→10:21)
[2018-07-19] MEDS: INSULIN GLARGINE UD 100 UNITS/ML SYR SUBCUT SCH ×2 (10:00→22:00)
[2018-07-19] MEDS: METOLAZONE 10MG TABLET PO SCH (10:17)
[2018-07-19] MEDS: TAMSULOSIN HCL 0.4MG SR CAPSULE PO SCH (10:18)
[2018-07-19] MEDS: ASPIRIN 81MG EC TABLET PO SCH (10:19)
[2018-07-19] MEDS: SENNOSIDES 8.6MG TABLET PO SCH (10:19)
[2018-07-19] MEDS: AMLODIPINE 2.5MG TABLET PO SCH ×2 (10:19→21:00)
[2018-07-19] MEDS: METHADONE HCL 10MG TABLET PO SCH (10:20)
[2018-07-19] MEDS: DOCUSATE SODIUM 100MG CAPSULE PO SCH ×2 (10:20→17:00)
[2018-07-19] MEDS: POLYETHYLENE GLYCOL 3350 (17GM) 1 DOSE PACK PO SCH (10:20)
[2018-07-19] MEDS: ENOXAPARIN 30MG/0.3ML SYR SUBCUT SCH ×2 (10:23→21:57)
[2018-07-19] MEDS ORDERED: ERGOCALCIFEROL 50000UNITS CAPSULE PO SCH (13:30)
[2018-07-19 20:00] VITALS: BP 124/81
[2018-07-19] MEDS: DIPHENHYDRAMINE 12.5MG/5ML UDC PO PRN (21:57)
[2018-07-19] MEDS: FAMOTIDINE 20MG TABLET PO SCH (21:57)
[2018-07-20] MEDS: IPRATROPIUM/ALBUTEROL 0.5-3(2.5)MG/3ML NEB HHN SCH ×2 (00:24→08:04)
[2018-07-20] MEDS: ACETAMINOPHEN 325MG TABLET PO PRN (04:46)
[2018-07-20] MEDS: BLOOD SUGAR DIAGNOSTIC STRIP TEST SCH ×2 (06:32→11:15)
[2018-07-20] MEDS: INSULIN LISPRO 100 UNITS/ML SUBCUT SCH ×2 (07:23→13:00)
[2018-07-20 08:03] VITALS: BP 123/73
[2018-07-20] MEDS: LIDOCAINE HCL 4% CREAM 76GM TUBE TP SCH ×2 (09:07→13:00)
[2018-07-20] MEDS: TERBINAFINE HCL 1% CREAM 30GM TOP SCH (09:07)
[2018-07-20] MEDS: POLYETHYLENE GLYCOL 3350 (17GM) 1 DOSE PACK PO SCH (09:07)
[2018-07-20] MEDS: SENNOSIDES 8.6MG TABLET PO SCH (09:08)
[2018-07-20] MEDS: TAMSULOSIN HCL 0.4MG SR CAPSULE PO SCH (09:08)
[2018-07-20] MEDS: ENOXAPARIN 30MG/0.3ML SYR SUBCUT SCH (09:08)
[2018-07-20] MEDS: DOCUSATE SODIUM 100MG CAPSULE PO SCH (09:08)
[2018-07-20] MEDS: ASPIRIN 81MG EC TABLET PO SCH (09:08)
[2018-07-20] MEDS: METOLAZONE 10MG TABLET PO SCH (09:08)
[2018-07-20] MEDS: METHADONE HCL 10MG TABLET PO SCH (09:09)
[2018-07-20] MEDS: AMLODIPINE 2.5MG TABLET PO SCH (09:09)
[2018-07-20] MEDS: LIDOCAINE 5% PATCH TOP SCH ×2 (09:10)
[2018-07-20] MEDS: INSULIN GLARGINE UD 100 UNITS/ML SYR SUBCUT SCH (10:06)
[2018-07-20 15:25] VITALS: BP 123/73
== END 2018-07-20 15:50 | disposition home health service (06) | DRG 947 ==
PROVIDERS: ADMIT Physical Medicine & Rehabilitation Spinal Cord Injury Medicine; ATTEND Internal Medicine
PROC: 5A09357 Assistance with Respiratory Ventilation, Less than 24 Consecutive Hours, Continuous Positive Airway Pressure (ICD-10-PCS; principal; 2018-07-08)
PROC: 5A09357 Assistance with Respiratory Ventilation, Less than 24 Consecutive Hours, Continuous Positive Airway Pressure (ICD-10-PCS; 2018-07-09)
PROC: 5A09357 Assistance with Respiratory Ventilation, Less than 24 Consecutive Hours, Continuous Positive Airway Pressure (ICD-10-PCS; 2018-07-10)
PROC: 5A09357 Assistance with Respiratory Ventilation, Less than 24 Consecutive Hours, Continuous Positive Airway Pressure (ICD-10-PCS; 2018-07-14)
PROC: 5A09357 Assistance with Respiratory Ventilation, Less than 24 Consecutive Hours, Continuous Positive Airway Pressure (ICD-10-PCS; 2018-07-17)
DX: R53.81 Other malaise (principal); I50.43 Acute on chronic combined systolic (congestive) and diastolic (congestive) heart failure; F11.20 Opioid dependence, uncomplicated; E46 Unspecified protein-calorie malnutrition; J44.1 Chronic obstructive pulmonary disease with (acute) exacerbation; G82.20 Paraplegia, unspecified; M48.061 Spinal stenosis, lumbar region without neurogenic claudication; R26.2 Difficulty in walking, not elsewhere classified; G89.4 Chronic pain syndrome; R26.9 Unspecified abnormalities of gait and mobility; L98.9 Disorder of the skin and subcutaneous tissue, unspecified; M54.5 Low back pain; M43.16 Spondylolisthesis, lumbar region; I11.0 Hypertensive heart disease with heart failure; E11.42 Type 2 diabetes mellitus with diabetic polyneuropathy; B35.1 Tinea unguium; D64.9 Anemia, unspecified; D72.819 Decreased white blood cell count, unspecified; R74.0 Nonspecific elevation of levels of transaminase and lactic acid dehydrogenase [LDH]; E66.9 Obesity, unspecified; N40.0 Benign prostatic hyperplasia without lower urinary tract symptoms; E55.9 Vitamin D deficiency, unspecified; L60.0 Ingrowing nail; M51.16 Intervertebral disc disorders with radiculopathy, lumbar region; M47.26 Other spondylosis with radiculopathy, lumbar region; L60.3 Nail dystrophy; I89.0 Lymphedema, not elsewhere classified; F32.9 Major depressive disorder, single episode, unspecified; M19.90 Unspecified osteoarthritis, unspecified site; G47.30 Sleep apnea, unspecified; K59.00 Constipation, unspecified; Z79.899 Other long term (current) drug therapy; Z79.82 Long term (current) use of aspirin; Z72.0 Tobacco use; Z83.3 Family history of diabetes mellitus; Z82.49 Family history of ischemic heart disease and other diseases of the circulatory system; Z87.01 Personal history of pneumonia (recurrent); Z68.34 Body mass index [BMI] 34.0-34.9, adult
CPT/HCPCS: 36415; 71045; 80053; 80061; 82306; 82607; 82728; 82746; 82962; 83036; 83540; 83550; 83735; 84100; 84134; 84153; 84439; 84443; 84481; 84630; 85025; 85027; 92523; 93970; 93971; 94640; 94660; 97110; 97112; 97116; 97150; 97162; 97166; 97530; 97535; G0515; J1650; J1815; J7620; J7626; Q0163; G0103

== ENCOUNTER 2018-11-17 11:13 | Inpatient (IN) | payer MEDICARE, MEDICAID ==
[~2018-11-17] VITALS: Ht 182.9 cm; Wt 102.7 kg
[2018-11-17] MEDS ORDERED: MAGNESIUM 2 G PREMIX 50 ML IV STA (11:41)
[2018-11-17] MEDS ORDERED: ALBUTEROL (0.083%) 2.5MG/3ML NEB HHN STA (11:41)
[2018-11-17] MEDS ORDERED: METHYLPREDNISOLONE SOD SUCC 125 MG/2 ML VIAL IV STA (11:41)
[2018-11-17] MEDS ORDERED: IPRATROPIUM BROMIDE (0.02%) 0.5MG/2.5ML NEB HHN STA (11:41)
[2018-11-17] MEDS ORDERED: FUROSEMIDE 40MG/4ML VIAL IVP ONE (11:45)
[2018-11-17] MEDS ORDERED: LEVOFLOXACIN 500MG PREMIX 100 ML IV ONE (13:00)
[2018-11-17 13:15] LABS: HEMATOCRIT. 41.6 % (42.0-52.0); HEMOGLOBIN. 13.7 g/dL (14.0-18.0); MEAN CORPUSCULAR HEMOGLOBIN 31.3 pg (28.0-32.0); MEAN CORPUSCULAR VOLUME 95.1 fL (80.0-94.0); MEAN PLATELET VOLUME 8.3 fl (7.4-10.4); PLATELET 156 x1000/uL (130-400); RED BLOOD CELL COUNT 4.37 mill/uL (4.7-6.1); RED CELL DISTRIBUTION WIDTH 18.2 % (11.6-14.6)
[2018-11-17 13:22] LABS: CHLORIDE 102 mEq/L (98-107)
[2018-11-17 13:24] LABS: PARTIAL THROMBOPLASTIN TIME 30.6 sec (23.4-31.0); PROTHROMBIN TIME 10.4 sec (9.1-11.1)
[2018-11-17 15:18] LABS: PLATELET ESTIMATE NORMAL
[2018-11-17 16:19] VITALS: BP 122/69
[2018-11-17] MEDS: BLOOD SUGAR DIAGNOSTIC STRIP TEST SCH ×2 (17:30→21:41)
[2018-11-17] MEDS ORDERED: DEXTROSE 50% WATER 50ML SYRINGE IV PRN (17:30)
[2018-11-17 18:00] VITALS: BP 124/73
[2018-11-17] MEDS: INSULIN LISPRO 100 UNITS/ML SUBCUT SCH ×2 (18:00→21:45)
[2018-11-17] MEDS: FUROSEMIDE 40MG/4ML VIAL IVP SCH (18:35)
[2018-11-17] MEDS: ENOXAPARIN 30MG/0.3ML SYR SUBCUT SCH (18:35)
[2018-11-17 20:00] VITALS: BP 105/66
[2018-11-17] MEDS: IPRATROPIUM/ALBUTEROL 0.5-3(2.5)MG/3ML NEB HHN SCH ×2 (20:13→23:51)
[2018-11-17] MEDS ORDERED: CHOL100053 PO (20:22)
[2018-11-17] MEDS ORDERED: LEVVL SQ (20:22)
[2018-11-17] MEDS ORDERED: TAMS0.4C31 PO (20:22)
[2018-11-17] MEDS ORDERED: RISP1SOL4 PO (20:22)
[2018-11-17] MEDS ORDERED: FURO40TA5 PO (20:22)
[2018-11-17] MEDS ORDERED: AMLO10TA80 PO (20:22)
[2018-11-17] MEDS ORDERED: DILT120T13 PO (20:22)
[2018-11-17] MEDS ORDERED: ONDA4TAB5 PO (20:22)
[2018-11-17] MEDS ORDERED: LISI-186 PO (20:22)
[2018-11-17] MEDS ORDERED: HYDR100T26 PO (20:22)
[2018-11-17] MEDS ORDERED: DULO30CA51 PO (20:22)
[2018-11-17] MEDS ORDERED: AMI2 PO (20:22)
[2018-11-17] MEDS ORDERED: DIPH50CA38 PO (20:22)
[2018-11-17] MEDS ORDERED: CLOT30LO2 TP (20:22)
[2018-11-17] MEDS ORDERED: SIME125C PO (20:22)
[2018-11-17] MEDS ORDERED: CLON0.1T PO (20:22)
[2018-11-17] MEDS ORDERED: FLUT15.88 BOTHNSTRLS (20:22)
[2018-11-17] MEDS ORDERED: ACET250T3 PO (20:22)
[2018-11-17] MEDS ORDERED: DOCU-272 PO (20:22)
[2018-11-17] MEDS ORDERED: APIX5TAB PO (20:22)
[2018-11-17] MEDS ORDERED: HYDR25TA PO (20:22)
[2018-11-17] MEDS ORDERED: DICL100G27 TP (20:23)
[2018-11-17] MEDS ORDERED: ENOXAPARIN 40MG/0.4ML SYR SUBCUT SCH (21:15)
[2018-11-17] MEDS ORDERED: MAGNESIUM/ALUMINUM HYDROXIDE/SIMETHICONE 30ML UDC PO PRN (21:15)
[2018-11-17] MEDS ORDERED: GUAIFENESIN 200MG/10ML SUGAR FREE UDC PO PRN (21:15)
[2018-11-17] MEDS ORDERED: ACETAMINOPHEN 325MG TABLET PO PRN (21:15)
[2018-11-17] MEDS ORDERED: ONDANSETRON HCL 4MG/2ML INJ IV PRN (21:15)
[2018-11-17] MEDS ORDERED: DIPHENHYDRAMINE 50MG/ML VIAL IV PRN (21:15)
[2018-11-17] MEDS ORDERED: IPRATROPIUM/ALBUTEROL 0.5-3(2.5)MG/3ML NEB INH PRN (21:15)
[2018-11-17] MEDS ORDERED: METHADONE HCL 10MG TABLET PO NR (21:30)
[2018-11-17 22:00] VITALS: BP 114/73
[2018-11-17] MEDS: SODIUM CHLORIDE 0.9% INJ 3ML FLUSH IVF SCH (22:00)
[2018-11-17] MEDS: INSULIN GLARGINE UD 100 UNITS/ML SYR SUBCUT SCH (22:00)
[2018-11-17] MEDS: METHYLPREDNISOLONE SOD SUCC 40 MG/ML VIAL IV SCH (22:00)
[2018-11-17] MEDS ORDERED: IBUPROFEN 600MG TABLET PO PRN (22:00)
[2018-11-18] VITALS (12 sets, daily range): BP systolic 94–144; BP diastolic 65–91
[2018-11-18] MEDS ORDERED: IPRATROPIUM/ALBUTEROL 0.5-3(2.5)MG/3ML NEB HHN SCH
[2018-11-18] MEDS: IPRATROPIUM/ALBUTEROL 0.5-3(2.5)MG/3ML NEB HHN SCH ×5 (04:10→21:02)
[2018-11-18] MEDS: METHYLPREDNISOLONE SOD SUCC 40 MG/ML VIAL IV SCH ×3 (06:10→22:33)
[2018-11-18] MEDS: SODIUM CHLORIDE 0.9% INJ 3ML FLUSH IVF SCH ×3 (06:10→22:33)
[2018-11-18] MEDS: ENOXAPARIN 30MG/0.3ML SYR SUBCUT SCH ×2 (06:10→17:01)
[2018-11-18] MEDS: FUROSEMIDE 40MG/4ML VIAL IVP SCH ×2 (06:17→16:54)
[2018-11-18 06:47] LABS: HEMATOCRIT. 40.2 % (42.0-52.0); HEMOGLOBIN. 13.1 g/dL (14.0-18.0); MEAN CORPUSCULAR HEMOGLOBIN 30.6 pg (28.0-32.0); MEAN CORPUSCULAR VOLUME 94.3 fL (80.0-94.0); MEAN PLATELET VOLUME 8.2 fl (7.4-10.4); PLATELET 145 x1000/uL (130-400); RED BLOOD CELL COUNT 4.26 mill/uL (4.7-6.1); RED CELL DISTRIBUTION WIDTH 17.6 % (11.6-14.6)
[2018-11-18 07:14] LABS: CHLORIDE 101 mEq/L (98-107)
[2018-11-18] MEDS: BLOOD SUGAR DIAGNOSTIC STRIP TEST SCH ×4 (07:30→20:42)
[2018-11-18 07:49] LABS: PHOSPHORUS 3.9 mg/dL (2.5-4.9)
[2018-11-18] MEDS: INSULIN LISPRO 100 UNITS/ML SUBCUT SCH ×4 (08:00→20:54)
[2018-11-18] MEDS: POTASSIUM CHLORIDE 20MEQ TABLET SR PO SCH (08:55)
[2018-11-18] MEDS: METOLAZONE 10MG TABLET PO SCH (08:55)
[2018-11-18 09:24] LABS: BG BASE EXCESS 1.9 mmol/L (-2.0-2.0); BG CARBOXYHEMOGLOBIN 0.8 % (0.5-1.5); BG DEOXYHEMOGLOBIN 13.4 % (0.0-5.0); BG FRACTION INSPIRED OXYGEN 32; BG HCO3 ACT 29.8 mmol/L (22.0-26.0); BG METHEMOGLOBIN 0.1 % (0.0-1.5); BG OXYGEN SATURATION 86.5 % (92.0-98.5); BG OXYHEMOGLOBIN 85.7 % (94.0-97.0); BG PCO2 61.3 mmHg (35.0-45.0); BG PH 7.304 (7.350-7.450); BG PO2 55.2 mmHg (75.0-100.0); BG SAMPLE SITE RIGHT RADIAL; BG TOTAL HEMOGLOBIN 13.8 g/dL (12.0-18.0); BG VENT MODE NASAL CANNULA
[2018-11-18] MEDS: METHADONE HCL 10MG TABLET PO SCH (12:05)
[2018-11-18 12:36] LABS: ATYPICAL LYMPHOCYTES 1
[2018-11-18 12:37] LABS: PLATELET ESTIMATE NORMAL
[2018-11-18] MEDS: THEOPHYLLINE ANHYDROUS 80 MG/15 ML 120ML PO SCH (20:42)
[2018-11-18] MEDS: INSULIN GLARGINE UD 100 UNITS/ML SYR SUBCUT SCH (22:34)
[2018-11-19] VITALS (12 sets, daily range): BP systolic 116–168; BP diastolic 63–98
[2018-11-19] MEDS: IPRATROPIUM/ALBUTEROL 0.5-3(2.5)MG/3ML NEB HHN SCH ×6 (00:55→20:54)
[2018-11-19] MEDS: ENOXAPARIN 30MG/0.3ML SYR SUBCUT SCH ×2 (06:22→17:49)
[2018-11-19] MEDS: FUROSEMIDE 40MG/4ML VIAL IVP SCH ×2 (06:22→17:49)
[2018-11-19] MEDS: SODIUM CHLORIDE 0.9% INJ 3ML FLUSH IVF SCH ×3 (06:22→21:14)
[2018-11-19] MEDS: METHYLPREDNISOLONE SOD SUCC 40 MG/ML VIAL IV SCH ×3 (06:22→21:13)
[2018-11-19 06:24] LABS: CHLORIDE 97 mEq/L (98-107)
[2018-11-19] MEDS: INSULIN LISPRO 100 UNITS/ML SUBCUT SCH ×4 (08:00→21:14)
[2018-11-19] MEDS: BLOOD SUGAR DIAGNOSTIC STRIP TEST SCH ×4 (08:19→21:00)
[2018-11-19 08:32] LABS: BG BASE EXCESS 8.7 mmol/L (-2.0-2.0); BG CARBOXYHEMOGLOBIN 0.8 % (0.5-1.5); BG DEOXYHEMOGLOBIN 8.4 % (0.0-5.0); BG FRACTION INSPIRED OXYGEN 32; BG HCO3 ACT 35.6 mmol/L (22.0-26.0); BG METHEMOGLOBIN 0.1 % (0.0-1.5); BG OXYGEN SATURATION 91.5 % (92.0-98.5); BG OXYHEMOGLOBIN 90.7 % (94.0-97.0); BG PH 7.406 (7.350-7.450); BG PO2 62.1 mmHg (75.0-100.0); BG SAMPLE SITE RIGHT RADIAL; BG TOTAL HEMOGLOBIN 14.6 g/dL (12.0-18.0); BG VENT MODE NASAL CANNULA
[2018-11-19] MEDS: POTASSIUM CHLORIDE 20MEQ TABLET SR PO SCH (09:24)
[2018-11-19] MEDS: METOLAZONE 10MG TABLET PO SCH (09:27)
[2018-11-19] MEDS: METHADONE HCL 10MG TABLET PO SCH (09:27)
[2018-11-19] MEDS: THEOPHYLLINE ANHYDROUS 80 MG/15 ML 120ML PO SCH ×2 (09:28→21:10)
[2018-11-19] MEDS: CLONIDINE 0.1MG TABLET PO PRN (18:35)
[2018-11-19] MEDS: INSULIN GLARGINE UD 100 UNITS/ML SYR SUBCUT SCH (21:11)
[2018-11-20] VITALS (13 sets, daily range): BP systolic 119–175; BP diastolic 66–105
[2018-11-20] MEDS: IPRATROPIUM/ALBUTEROL 0.5-3(2.5)MG/3ML NEB HHN SCH ×6 (00:46→21:38)
[2018-11-20] MEDS: SODIUM CHLORIDE 0.9% INJ 3ML FLUSH IVF SCH ×3 (06:00→21:41)
[2018-11-20] MEDS: METHYLPREDNISOLONE SOD SUCC 40 MG/ML VIAL IV SCH ×2 (06:19→14:44)
[2018-11-20] MEDS: FUROSEMIDE 40MG/4ML VIAL IVP SCH (06:19)
[2018-11-20] MEDS: ENOXAPARIN 30MG/0.3ML SYR SUBCUT SCH ×2 (06:20→17:56)
[2018-11-20] MEDS: INSULIN LISPRO 100 UNITS/ML SUBCUT SCH ×4 (07:18→21:16)
[2018-11-20] MEDS: BLOOD SUGAR DIAGNOSTIC STRIP TEST SCH ×4 (07:18→21:17)
[2018-11-20] MEDS: POTASSIUM CHLORIDE 20MEQ TABLET SR PO SCH (08:49)
[2018-11-20] MEDS: CLONIDINE 0.1MG TABLET PO PRN (08:51)
[2018-11-20] MEDS: METHADONE HCL 10MG TABLET PO SCH (08:52)
[2018-11-20] MEDS: THEOPHYLLINE ANHYDROUS 80 MG/15 ML 120ML PO SCH ×2 (08:56→21:13)
[2018-11-20] MEDS: METOLAZONE 10MG TABLET PO SCH (08:56)
[2018-11-20 13:01] LABS: CHLORIDE 92 mEq/L (98-107)
[2018-11-20] MEDS ORDERED: SODIUM POLYSTYRENE SULFONATE 15 G/60 ML BOT PO NR (17:00)
[2018-11-20] MEDS: AMLODIPINE 5MG TABLET PO SCH (21:13)
[2018-11-20] MEDS: INSULIN GLARGINE UD 100 UNITS/ML SYR SUBCUT SCH (21:17)
[2018-11-21] VITALS: BP 125/93
[2018-11-21] MEDS: IPRATROPIUM/ALBUTEROL 0.5-3(2.5)MG/3ML NEB HHN SCH ×4 (00:53→12:27)
[2018-11-21 06:00] VITALS: BP 132/89
[2018-11-21] MEDS: SODIUM CHLORIDE 0.9% INJ 3ML FLUSH IVF SCH ×2 (06:24→14:46)
[2018-11-21] MEDS: ENOXAPARIN 30MG/0.3ML SYR SUBCUT SCH (06:24)
[2018-11-21] MEDS: BLOOD SUGAR DIAGNOSTIC STRIP TEST SCH ×2 (07:55→12:09)
[2018-11-21] MEDS: INSULIN LISPRO 100 UNITS/ML SUBCUT SCH ×2 (07:56→12:09)
[2018-11-21 07:58] LABS: BASOPHILS % 0.2 % (0.0-2.0); EOSINOPHILS % 0.3 % (0.0-5.0); HEMATOCRIT. 42.6 % (42.0-52.0); HEMOGLOBIN. 14.1 g/dL (14.0-18.0); LYMPHOCYTES % 7.5 % (20.0-50.0); MEAN CORPUSCULAR VOLUME 93.6 fL (80.0-94.0); MEAN PLATELET VOLUME 8.3 fl (7.4-10.4); PLATELET 139 x1000/uL (130-400); RED BLOOD CELL COUNT 4.55 mill/uL (4.7-6.1); RED CELL DISTRIBUTION WIDTH 17.8 % (11.6-14.6)
[2018-11-21 08:00] VITALS: BP 148/80
[2018-11-21 08:14] LABS: CHLORIDE 93 mEq/L (98-107)
[2018-11-21] MEDS ORDERED: PREDNISONE 20MG TABLET PO SCH (09:00)
[2018-11-21] MEDS ORDERED: FUROSEMIDE 40MG/4ML VIAL IVP SCH (09:00)
[2018-11-21] MEDS: METHADONE HCL 10MG TABLET PO SCH (09:25)
[2018-11-21] MEDS: POTASSIUM CHLORIDE 20MEQ TABLET SR PO SCH (09:25)
[2018-11-21] MEDS: AMLODIPINE 5MG TABLET PO SCH (09:26)
[2018-11-21] MEDS: THEOPHYLLINE ANHYDROUS 80 MG/15 ML 120ML PO SCH (09:26)
[2018-11-21] MEDS ORDERED: POTASSIUM CHLORIDE 10MEQ TABLET SR PO NR (09:45)
[2018-11-21 10:00] VITALS: BP 124/87
[2018-11-21 12:00] VITALS: BP 140/93
[2018-11-21 13:56] VITALS: BP 140/93
== END 2018-11-21 14:55 | disposition home health service (06) | DRG 291 ==
LOC: ER 11:13 → 5EST 12:13 → EDBEDREQ 12:15 → ENRESERV 12:47
PROVIDERS: ADMIT Internal Medicine; ATTEND Internal Medicine
PROC: 5A09457 Assistance with Respiratory Ventilation, 24-96 Consecutive Hours, Continuous Positive Airway Pressure (ICD-10-PCS; principal; 2018-11-17)
PROC: 02HV33Z Insertion of Infusion Device into Superior Vena Cava, Percutaneous Approach (ICD-10-PCS; 2018-11-17)
PROC: B5181ZA Fluoroscopy of Superior Vena Cava using Low Osmolar Contrast, Guidance (ICD-10-PCS; 2018-11-17)
DX: I11.0 Hypertensive heart disease with heart failure (principal); J96.01 Acute respiratory failure with hypoxia; J44.1 Chronic obstructive pulmonary disease with (acute) exacerbation; E87.2 Acidosis; M47.029 Vertebral artery compression syndromes, site unspecified; I50.33 Acute on chronic diastolic (congestive) heart failure; E66.01 Morbid (severe) obesity due to excess calories; E11.9 Type 2 diabetes mellitus without complications; E78.5 Hyperlipidemia, unspecified; F17.200 Nicotine dependence, unspecified, uncomplicated; G89.29 Other chronic pain; M19.90 Unspecified osteoarthritis, unspecified site; D72.819 Decreased white blood cell count, unspecified; M54.5 Low back pain; Z83.3 Family history of diabetes mellitus; Z68.30 Body mass index [BMI] 30.0-30.9, adult
CPT/HCPCS: 36415; 36569; 36600; 71045; 76937; 80048; 82375; 82805; 82962; 83605; 83735; 83880; 84100; 84145; 84484; 93005; 93970; 94640; 94644; 94660; 96365; 96367; 96375; 97162; 99291; C1725; J1650; J1815; J1940; J1956; J2920; J2930; J3475; J7512; J7611; J7620

== ENCOUNTER 2019-01-04 11:29 | Inpatient (IN) | payer MEDICARE, MEDICAID ==
[~2019-01-04] VITALS: Ht 185.4 cm; Wt 95.5 kg
[~2019-01-04 11:29] MED LIST changes: +AMLO10TA80 PO; -ASPI-1159 PO; -FURO-152 PO; -INSU100V3 SUBCUT; +LEVVL SQ; -LISI2.5T47 PO
[2019-01-04] MEDS ORDERED: IPRATROPIUM BROMIDE (0.02%) 0.5MG/2.5ML NEB HHN STA (12:15)
[2019-01-04] MEDS ORDERED: ALBUTEROL (0.083%) 2.5MG/3ML NEB HHN SCH (12:30)
[2019-01-04 13:05] LABS: BASOPHILS % 0.5 % (0.0-2.0); EOSINOPHILS % 0.2 % (0.0-5.0); HEMATOCRIT. 46.2 % (42.0-52.0); HEMOGLOBIN. 15.8 g/dL (14.0-18.0); LYMPHOCYTES % 13.1 % (20.0-50.0); MEAN CORPUSCULAR HEMOGLOBIN 32.5 pg (28.0-32.0); MEAN CORPUSCULAR VOLUME 94.8 fL (80.0-94.0); MEAN PLATELET VOLUME 8.2 fl (7.4-10.4); MONOCYTES % 12.6 % (2.0-8.0); NEUTROPHILS % 73.6 % (40.0-76.0); PLATELET 218 x1000/uL (130-400); RED BLOOD CELL COUNT 4.87 mill/uL (4.7-6.1); RED CELL DISTRIBUTION WIDTH 13.7 % (11.6-14.6)
[2019-01-04 13:11] LABS: BG BASE EXCESS 13.7 mmol/L (-2.0-2.0); BG DEOXYHEMOGLOBIN 26.4 % (0.0-5.0); BG FRACTION INSPIRED OXYGEN 21; BG HCO3 ACT 40.9 mmol/L (22.0-26.0); BG METHEMOGLOBIN 0.3 % (0.0-1.5); BG OXYHEMOGLOBIN 71.3 % (94.0-97.0); BG PCO2 59.8 mmHg (35.0-45.0); BG PH 7.453 (7.350-7.450); BG PO2 38.9 mmHg (75.0-100.0); BG SAMPLE SITE LEFT RADIAL; BG TOTAL HEMOGLOBIN 16.3 g/dL (12.0-18.0); BG VENT MODE ROOM AIR
[2019-01-04 13:42] LABS: CHLORIDE 82 mEq/L (98-107)
[2019-01-04] MEDS ORDERED: DEXTROSE 50% WATER 50ML SYRINGE IV PRN ×2 (14:30→16:45)
[2019-01-04] MEDS ORDERED: ACETAMINOPHEN 325MG TABLET PO PRN ×2 (14:30→16:45)
[2019-01-04] MEDS ORDERED: CLONIDINE 0.1MG TABLET PO PRN (14:30)
[2019-01-04] MEDS ORDERED: IPRATROPIUM/ALBUTEROL 0.5-3(2.5)MG/3ML NEB HHN PRN (15:00)
[2019-01-04 15:29] LABS: *AMPHETAMINES SCREEN URINE NEGATIVE (NEGATIVE); *BARBITURATES SCREEN URINE NEGATIVE (NEGATIVE); *BENZODIAZEPINES SCREEN URINE NEGATIVE (NEGATIVE); *COCAINE SCREEN URINE NEGATIVE (NEGATIVE); METHADONE URINE SCREEN PRESUMTIVE POSITIVE (NEGATIVE); OPIATES URINE SCREEN NEGATIVE (NEGATIVE)
[2019-01-04 15:30] LABS: CANNABINOID URINE SCREEN NEGATIVE (NEGATIVE); PHENCYCLIDINE URINE SCREEN NEGATIVE (NEGATIVE)
[2019-01-04] MEDS ORDERED: IPRATROPIUM/ALBUTEROL 0.5-3(2.5)MG/3ML NEB HHN SCH (16:00)
[2019-01-04] MEDS ORDERED: LORAZEPAM 0.5MG TABLET PO PRN (16:45)
[2019-01-04] MEDS ORDERED: IPRATROPIUM/ALBUTEROL 0.5-3(2.5)MG/3ML NEB INH PRN (16:45)
[2019-01-04] MEDS ORDERED: ONDANSETRON HCL 4MG/2ML INJ IV PRN (16:45)
[2019-01-04] MEDS ORDERED: GUAIFENESIN 200MG/10ML SUGAR FREE UDC PO PRN (16:45)
[2019-01-04] MEDS ORDERED: MAGNESIUM/ALUMINUM HYDROXIDE/SIMETHICONE 30ML UDC PO PRN (16:45)
[2019-01-04] MEDS ORDERED: BLOOD SUGAR DIAGNOSTIC STRIP TEST SCH (17:00)
[2019-01-04] MEDS ORDERED: INSULIN LISPRO 100 UNITS/ML SUBCUT SCH (18:16)
[2019-01-04] MEDS: INSULIN LISPRO 100 UNITS/ML SUBCUT SCH ×2 (18:45→20:56)
[2019-01-04 18:53] VITALS: BP 118/73
[2019-01-04] MEDS: METHYLPREDNISOLONE SOD SUCC 40 MG/ML VIAL IV SCH (19:25)
[2019-01-04] MEDS: BLOOD SUGAR DIAGNOSTIC STRIP TEST SCH ×2 (19:26→20:56)
[2019-01-04] MEDS: ENOXAPARIN 40MG/0.4ML SYR SUBCUT SCH (19:26)
[2019-01-04 20:00] VITALS: BP 110/56
[2019-01-04] MEDS: AMLODIPINE 5MG TABLET PO SCH (20:20)
[2019-01-04] MEDS: IPRATROPIUM/ALBUTEROL 0.5-3(2.5)MG/3ML NEB HHN SCH (21:38)
[2019-01-04] MEDS: SODIUM CHLORIDE 0.9% INJ 3ML FLUSH IVF SCH (21:51)
[2019-01-04 22:00] VITALS: BP 120/70
[2019-01-04] MEDS ORDERED: INSULIN GLARGINE UD 100 UNITS/ML SYR SUBCUT SCH (22:00)
[2019-01-04] MEDS ORDERED: TEMAZEPAM 15MG CAPSULE PO ONE (23:30)
[2019-01-04] MEDS ORDERED: TEMAZEPAM 15MG CAPSULE PO SCH (23:45)
[2019-01-04] MEDS ORDERED: TEMAZEPAM 15MG CAPSULE PO PRN (23:45)
[2019-01-05] VITALS (12 sets, daily range): BP systolic 101–143; BP diastolic 56–82
[2019-01-05] MEDS: METHYLPREDNISOLONE SOD SUCC 40 MG/ML VIAL IV SCH ×3 (02:29→17:52)
[2019-01-05] MEDS: IPRATROPIUM/ALBUTEROL 0.5-3(2.5)MG/3ML NEB HHN SCH ×5 (04:25→19:57)
[2019-01-05] MEDS: BLOOD SUGAR DIAGNOSTIC STRIP TEST SCH ×4 (06:06→21:08)
[2019-01-05] MEDS: SODIUM CHLORIDE 0.9% INJ 3ML FLUSH IVF SCH ×3 (06:29→21:49)
[2019-01-05 07:03] LABS: CHLORIDE 83 mEq/L (98-107)
[2019-01-05 07:10] LABS: HEMATOCRIT. 41.6 % (42.0-52.0); HEMOGLOBIN. 13.9 g/dL (14.0-18.0); MEAN CORPUSCULAR HEMOGLOBIN 31.7 pg (28.0-32.0); MEAN PLATELET VOLUME 8.2 fl (7.4-10.4); PLATELET 207 x1000/uL (130-400); RED BLOOD CELL COUNT 4.37 mill/uL (4.7-6.1); RED CELL DISTRIBUTION WIDTH 13.6 % (11.6-14.6)
[2019-01-05 07:14] LABS: LDL CHOLESTEROL 88 mg/dL (5-100)
[2019-01-05 07:15] LABS: HDL CHOLESTEROL 66 mg/dL (40-59)
[2019-01-05] MEDS: INSULIN LISPRO 100 UNITS/ML SUBCUT SCH ×4 (07:28→21:48)
[2019-01-05] MEDS: AMLODIPINE 5MG TABLET PO SCH ×2 (08:03→21:00)
[2019-01-05 09:28] LABS: BG BASE EXCESS 12.6 mmol/L (-2.0-2.0); BG BILEVEL POS AIRWAY PRESSURE 18/8; BG CARBOXYHEMOGLOBIN 0.7 % (0.5-1.5); BG DEOXYHEMOGLOBIN 5.6 % (0.0-5.0); BG HCO3 ACT 38.9 mmol/L (22.0-26.0); BG METHEMOGLOBIN 0.3 % (0.0-1.5); BG OXYGEN SATURATION 94.3 % (92.0-98.5); BG OXYHEMOGLOBIN 93.4 % (94.0-97.0); BG PCO2 55.4 mmHg (35.0-45.0); BG PH 7.464 (7.350-7.450); BG PO2 73.2 mmHg (75.0-100.0); BG SAMPLE SITE LEFT RADIAL; BG TOTAL HEMOGLOBIN 14.9 g/dL (12.0-18.0); BG VENT MODE MASK - BIPAP; BG VENT RATE 18 set
[2019-01-05] MEDS: METHADONE HCL 10MG TABLET PO SCH (09:58)
[2019-01-05] MEDS ORDERED: POTASSIUM CHLORIDE 20MEQ TABLET SR PO NR (12:15)
[2019-01-05 14:15] LABS: PLATELET ESTIMATE NORMAL
[2019-01-05] MEDS: ENOXAPARIN 40MG/0.4ML SYR SUBCUT SCH (17:52)
[2019-01-05] MEDS: TEMAZEPAM 15MG CAPSULE PO PRN (23:06)
[2019-01-05] MEDS: INSULIN GLARGINE UD 100 UNITS/ML SYR SUBCUT SCH (23:11)
[2019-01-06] VITALS (11 sets, daily range): BP systolic 99–120; BP diastolic 55–95
[2019-01-06] MEDS: IPRATROPIUM/ALBUTEROL 0.5-3(2.5)MG/3ML NEB HHN SCH ×6 (01:12→21:19)
[2019-01-06] MEDS: METHYLPREDNISOLONE SOD SUCC 40 MG/ML VIAL IV SCH ×3 (03:01→22:11)
[2019-01-06] MEDS: SODIUM CHLORIDE 0.9% INJ 3ML FLUSH IVF SCH ×3 (06:09→22:40)
[2019-01-06] MEDS: BLOOD SUGAR DIAGNOSTIC STRIP TEST SCH ×4 (06:14→22:30)
[2019-01-06] MEDS: INSULIN LISPRO 100 UNITS/ML SUBCUT SCH ×4 (07:20→22:42)
[2019-01-06] MEDS: AMLODIPINE 5MG TABLET PO SCH ×2 (09:09→22:10)
[2019-01-06] MEDS: METHADONE HCL 10MG TABLET PO SCH (09:09)
[2019-01-06] MEDS: ENOXAPARIN 40MG/0.4ML SYR SUBCUT SCH (22:11)
[2019-01-06] MEDS: INSULIN GLARGINE UD 100 UNITS/ML SYR SUBCUT SCH (22:47)
[2019-01-06] MEDS: TEMAZEPAM 15MG CAPSULE PO PRN (23:24)
[2019-01-07] VITALS (12 sets, daily range): BP systolic 101–125; BP diastolic 51–89
[2019-01-07] MEDS: METHYLPREDNISOLONE SOD SUCC 40 MG/ML VIAL IV SCH ×3 (01:55→17:29)
[2019-01-07] MEDS: IPRATROPIUM/ALBUTEROL 0.5-3(2.5)MG/3ML NEB HHN SCH ×6 (02:32→20:37)
[2019-01-07 05:58] LABS: HEMATOCRIT. 46.7 % (42.0-52.0); HEMOGLOBIN. 15.2 g/dL (14.0-18.0); MEAN CORPUSCULAR HEMOGLOBIN 31.7 pg (28.0-32.0); MEAN CORPUSCULAR VOLUME 97.4 fL (80.0-94.0); MEAN PLATELET VOLUME 8.3 fl (7.4-10.4); PLATELET 281 x1000/uL (130-400); RED BLOOD CELL COUNT 4.79 mill/uL (4.7-6.1); RED CELL DISTRIBUTION WIDTH 13.7 % (11.6-14.6)
[2019-01-07] MEDS: SODIUM CHLORIDE 0.9% INJ 3ML FLUSH IVF SCH ×3 (06:07→21:13)
[2019-01-07] MEDS: BLOOD SUGAR DIAGNOSTIC STRIP TEST SCH ×4 (06:13→20:22)
[2019-01-07 06:17] LABS: CHLORIDE 83 mEq/L (98-107)
[2019-01-07] MEDS: INSULIN LISPRO 100 UNITS/ML SUBCUT SCH ×4 (07:55→21:08)
[2019-01-07] MEDS: AMLODIPINE 5MG TABLET PO SCH ×2 (08:02→21:07)
[2019-01-07] MEDS: METHADONE HCL 10MG TABLET PO SCH (08:02)
[2019-01-07 09:44] LABS: BG BASE EXCESS 11.7 mmol/L (-2.0-2.0); BG CARBOXYHEMOGLOBIN 0.6 % (0.5-1.5); BG DEOXYHEMOGLOBIN 10.5 % (0.0-5.0); BG FRACTION INSPIRED OXYGEN 36; BG HCO3 ACT 39.1 mmol/L (22.0-26.0); BG METHEMOGLOBIN 0.3 % (0.0-1.5); BG OXYGEN SATURATION 89.4 % (92.0-98.5); BG OXYHEMOGLOBIN 88.6 % (94.0-97.0); BG PCO2 61.6 mmHg (35.0-45.0); BG PO2 56.8 mmHg (75.0-100.0); BG SAMPLE SITE RIGHT BRACHIAL; BG TOTAL HEMOGLOBIN 15.1 g/dL (12.0-18.0); BG VENT MODE NASAL CANNULA
[2019-01-07 11:30] LABS: PLATELET ESTIMATE NORMAL
[2019-01-07] MEDS: ENOXAPARIN 40MG/0.4ML SYR SUBCUT SCH (17:29)
[2019-01-07] MEDS: TEMAZEPAM 15MG CAPSULE PO PRN (21:07)
[2019-01-07] MEDS: INSULIN GLARGINE UD 100 UNITS/ML SYR SUBCUT SCH (21:13)
[2019-01-08] VITALS (13 sets, daily range): BP systolic 101–156; BP diastolic 52–97
[2019-01-08] MEDS: IPRATROPIUM/ALBUTEROL 0.5-3(2.5)MG/3ML NEB HHN SCH ×6 (00:36→20:33)
[2019-01-08] MEDS: METHYLPREDNISOLONE SOD SUCC 40 MG/ML VIAL IV SCH ×3 (01:41→17:10)
[2019-01-08] MEDS: BLOOD SUGAR DIAGNOSTIC STRIP TEST SCH ×4 (05:53→20:33)
[2019-01-08] MEDS: SODIUM CHLORIDE 0.9% INJ 3ML FLUSH IVF SCH ×3 (05:53→20:33)
[2019-01-08 06:21] LABS: CHLORIDE 87 mEq/L (98-107)
[2019-01-08] MEDS: INSULIN LISPRO 100 UNITS/ML SUBCUT SCH ×4 (06:26→20:33)
[2019-01-08 06:35] LABS: HEMATOCRIT. 41.5 % (42.0-52.0); MEAN CORPUSCULAR HEMOGLOBIN 32.4 pg (28.0-32.0); MEAN CORPUSCULAR VOLUME 95.9 fL (80.0-94.0); PLATELET 256 x1000/uL (130-400); RED BLOOD CELL COUNT 4.33 mill/uL (4.7-6.1); RED CELL DISTRIBUTION WIDTH 13.4 % (11.6-14.6)
[2019-01-08 08:23] LABS: BG CARBOXYHEMOGLOBIN 0.5 % (0.5-1.5); BG DEOXYHEMOGLOBIN 9.3 % (0.0-5.0); BG HCO3 ACT 34.6 mmol/L (22.0-26.0); BG METHEMOGLOBIN 0.2 % (0.0-1.5); BG OXYGEN SATURATION 90.6 % (92.0-98.5); BG PCO2 55.7 mmHg (35.0-45.0); BG PH 7.411 (7.350-7.450); BG PO2 61.8 mmHg (75.0-100.0); BG SAMPLE SITE RIGHT RADIAL; BG TOTAL HEMOGLOBIN 14.7 g/dL (12.0-18.0); BG VENT MODE NASAL CANNULA
[2019-01-08] MEDS: METHADONE HCL 10MG TABLET PO SCH (08:26)
[2019-01-08] MEDS: AMLODIPINE 5MG TABLET PO SCH ×2 (08:26→20:32)
[2019-01-08 13:54] LABS: PLATELET ESTIMATE NORMAL
[2019-01-08] MEDS: ENOXAPARIN 40MG/0.4ML SYR SUBCUT SCH (17:57)
[2019-01-08] MEDS: TEMAZEPAM 15MG CAPSULE PO PRN (20:32)
[2019-01-08] MEDS: INSULIN GLARGINE UD 100 UNITS/ML SYR SUBCUT SCH (21:43)
[2019-01-09] VITALS (7 sets, daily range): BP systolic 103–144; BP diastolic 54–88
[2019-01-09] MEDS: IPRATROPIUM/ALBUTEROL 0.5-3(2.5)MG/3ML NEB HHN SCH ×3 (00:33→08:54)
[2019-01-09] MEDS: METHYLPREDNISOLONE SOD SUCC 40 MG/ML VIAL IV SCH ×2 (02:30→10:30)
[2019-01-09] MEDS: SODIUM CHLORIDE 0.9% INJ 3ML FLUSH IVF SCH (05:30)
[2019-01-09] MEDS: BLOOD SUGAR DIAGNOSTIC STRIP TEST SCH ×2 (06:55→11:12)
[2019-01-09] MEDS: AMLODIPINE 5MG TABLET PO SCH (08:18)
[2019-01-09] MEDS: METHADONE HCL 10MG TABLET PO SCH (08:18)
[2019-01-09] MEDS: INSULIN LISPRO 100 UNITS/ML SUBCUT SCH ×2 (08:20→12:08)
[2019-01-09 10:02] LABS: BASOPHILS % 0.1 % (0.0-2.0); EOSINOPHILS % 0.1 % (0.0-5.0); HEMATOCRIT. 43.5 % (42.0-52.0); HEMOGLOBIN. 14.2 g/dL (14.0-18.0); LYMPHOCYTES % 11.3 % (20.0-50.0); MEAN CORPUSCULAR HEMOGLOBIN 31.7 pg (28.0-32.0); MEAN CORPUSCULAR VOLUME 97.2 fL (80.0-94.0); MEAN PLATELET VOLUME 7.7 fl (7.4-10.4); MONOCYTES % 12.7 % (2.0-8.0); NEUTROPHILS % 75.8 % (40.0-76.0); PLATELET 263 x1000/uL (130-400); RED BLOOD CELL COUNT 4.47 mill/uL (4.7-6.1); RED CELL DISTRIBUTION WIDTH 13.3 % (11.6-14.6)
[2019-01-09 10:08] LABS: CHLORIDE 90 mEq/L (98-107)
[2019-01-09 11:34] LABS: HEPATITIS B SURFACE ANTIGEN NEGATIVE
== END 2019-01-09 12:50 | DRG 291 ==
LOC: ER 12:42 → 3WST 13:51 → EDBEDREQ 13:55 → EDBEDREQSVC 13:55 → ENRESERV 15:13
PROVIDERS: ADMIT Specialist; ATTEND Specialist
PROC: 5A09357 Assistance with Respiratory Ventilation, Less than 24 Consecutive Hours, Continuous Positive Airway Pressure (ICD-10-PCS; principal; 2019-01-04)
PROC: 5A09357 Assistance with Respiratory Ventilation, Less than 24 Consecutive Hours, Continuous Positive Airway Pressure (ICD-10-PCS; 2019-01-06)
PROC: 5A09357 Assistance with Respiratory Ventilation, Less than 24 Consecutive Hours, Continuous Positive Airway Pressure (ICD-10-PCS; 2019-01-07)
DX: I11.0 Hypertensive heart disease with heart failure (principal); J96.01 Acute respiratory failure with hypoxia; J44.1 Chronic obstructive pulmonary disease with (acute) exacerbation; E87.1 Hypo-osmolality and hyponatremia; J44.0 Chronic obstructive pulmonary disease with (acute) lower respiratory infection; I50.33 Acute on chronic diastolic (congestive) heart failure; J20.9 Acute bronchitis, unspecified; E11.9 Type 2 diabetes mellitus without complications; M47.816 Spondylosis without myelopathy or radiculopathy, lumbar region; R74.0 Nonspecific elevation of levels of transaminase and lactic acid dehydrogenase [LDH]; G89.29 Other chronic pain; M54.9 Dorsalgia, unspecified; E78.5 Hyperlipidemia, unspecified; I48.0 Paroxysmal atrial fibrillation; F17.210 Nicotine dependence, cigarettes, uncomplicated; Z82.49 Family history of ischemic heart disease and other diseases of the circulatory system; Z99.81 Dependence on supplemental oxygen; Z83.3 Family history of diabetes mellitus; Z79.4 Long term (current) use of insulin; Z71.6 Tobacco abuse counseling
CPT/HCPCS: 36415; 36600; 71045; 80048; 80061; 80305; 82375; 82805; 82962; 83036; 83735; 83880; 84484; 85379; 87522; 93005; 93970; 94640; 94660; 97162; 99285; J1650; J1815; J2920; J7042; J7611; J7620

== ENCOUNTER 2019-08-25 13:57 | Inpatient (IN) | payer MEDICARE, MEDICAID ==
[~2019-08-25] VITALS: Ht 185.4 cm; Wt 98.9 kg
[2019-08-25] MEDS: BUDESONIDE 0.5MG/2ML NEB HHN SCH (00:21)
[2019-08-25] MEDS ORDERED: METHYLPREDNISOLONE SOD SUCC 125 MG/2 ML VIAL IV STA (15:11)
[2019-08-25] MEDS ORDERED: ALBUTEROL (0.083%) 2.5MG/3ML NEB HHN STA (15:11)
[2019-08-25] MEDS ORDERED: IPRATROPIUM BROMIDE (0.02%) 0.5MG/2.5ML NEB HHN STA (15:11)
[2019-08-25] MEDS ORDERED: FUROSEMIDE 40MG/4ML VIAL IV ONE (15:15)
[2019-08-25] MEDS ORDERED: NITROGLYCERIN OINT 1GM/INCH UDPKT TD ONE (15:15)
[2019-08-25 15:48] LABS: CHLORIDE 98 mEq/L (98-107)
[2019-08-25 15:50] LABS: BASOPHILS % 1.3 % (0.0-2.0); EOSINOPHILS % 1.3 % (0.0-5.0); HEMATOCRIT. 43.5 % (42.0-52.0); HEMOGLOBIN. 14.6 g/dL (14.0-18.0); LYMPHOCYTES % 19.7 % (20.0-50.0); MEAN CORPUSCULAR HEMOGLOBIN 32.8 pg (28.0-32.0); MEAN CORPUSCULAR VOLUME 97.8 fL (80.0-94.0); MEAN PLATELET VOLUME 8.5 fl (7.4-10.4); MONOCYTES % 12.4 % (2.0-8.0); NEUTROPHILS % 65.3 % (40.0-76.0); PLATELET 171 x1000/uL (130-400); PROTHROMBIN TIME 10.6 sec (9.6-11.0); RED BLOOD CELL COUNT 4.44 mill/uL (4.7-6.1); RED CELL DISTRIBUTION WIDTH 12.9 % (11.6-14.6)
[2019-08-25] MEDS ORDERED: LORAZEPAM 0.5MG TABLET PO PRN (21:15)
[2019-08-25] MEDS ORDERED: DIPHENHYDRAMINE 50MG/ML VIAL IV PRN (21:15)
[2019-08-25] MEDS ORDERED: MAGNESIUM HYDROXIDE 400MG/5ML 30ML UDC PO PRN (21:15)
[2019-08-25] MEDS ORDERED: TEMAZEPAM 15MG CAPSULE PO PRN (21:15)
[2019-08-25] MEDS ORDERED: ONDANSETRON HCL 4MG/2ML INJ IV PRN (21:15)
[2019-08-25] MEDS ORDERED: IPRATROPIUM/ALBUTEROL 0.5-3(2.5)MG/3ML NEB HHN PRN (21:15)
[2019-08-25] MEDS ORDERED: DEXTROSE 50% WATER 50ML SYRINGE IV PRN (21:15)
[2019-08-25] MEDS: ENOXAPARIN 40MG/0.4ML SYR SUBCUT SCH (21:49)
[2019-08-25] MEDS: SODIUM CHLORIDE 0.9% INJ 3ML FLUSH IVF SCH (21:50)
[2019-08-25 22:00] VITALS: BP 120/78
[2019-08-25] MEDS: INSULIN GLARGINE UD 100 UNITS/ML SYR SUBCUT SCH (23:03)
[2019-08-26] VITALS: BP 116/65
[2019-08-26] MEDS: IPRATROPIUM/ALBUTEROL 0.5-3(2.5)MG/3ML NEB HHN SCH ×5 (00:18→21:14)
[2019-08-26 04:00] VITALS: BP 105/69
[2019-08-26] MEDS: BLOOD SUGAR DIAGNOSTIC STRIP TEST SCH ×4 (05:52→21:01)
[2019-08-26] MEDS: SODIUM CHLORIDE 0.9% INJ 3ML FLUSH IVF SCH ×3 (05:54→21:02)
[2019-08-26 08:00] VITALS: BP 129/70
[2019-08-26] MEDS: METOLAZONE 10MG TABLET PO SCH (08:43)
[2019-08-26] MEDS: METHADONE HCL 10MG TABLET PO SCH (08:44)
[2019-08-26] MEDS: AMLODIPINE 2.5MG TABLET PO SCH ×2 (08:44→20:59)
[2019-08-26] MEDS: INSULIN LISPRO 100 UNITS/ML SUBCUT SCH ×4 (08:46→21:00)
[2019-08-26] MEDS: BUDESONIDE 0.5MG/2ML NEB HHN SCH ×2 (08:55→21:18)
[2019-08-26 12:50] VITALS: BP 112/60
[2019-08-26 16:00] VITALS: BP 112/60
[2019-08-26] MEDS: FUROSEMIDE 40MG/4ML VIAL IVP SCH (18:30)
[2019-08-26] MEDS ORDERED: LACTULOSE 20G/30ML UDC PO PRN (18:45)
[2019-08-26 20:00] VITALS: BP 111/56
[2019-08-26] MEDS: DOCUSATE SODIUM 100MG CAPSULE PO SCH (20:59)
[2019-08-26] MEDS: ENOXAPARIN 40MG/0.4ML SYR SUBCUT SCH (21:01)
[2019-08-26] MEDS: INSULIN GLARGINE UD 100 UNITS/ML SYR SUBCUT SCH (21:44)
[2019-08-27] VITALS: BP 115/65
[2019-08-27] MEDS: ACETAMINOPHEN 325MG TABLET PO PRN ×3 (00:46→16:03)
[2019-08-27 04:00] VITALS: BP 128/62
[2019-08-27] MEDS: FUROSEMIDE 40MG/4ML VIAL IVP SCH ×4 (06:27→18:12)
[2019-08-27] MEDS: SODIUM CHLORIDE 0.9% INJ 3ML FLUSH IVF SCH ×3 (06:28→22:09)
[2019-08-27] MEDS: BLOOD SUGAR DIAGNOSTIC STRIP TEST SCH ×4 (06:49→21:00)
[2019-08-27] MEDS: INSULIN LISPRO 100 UNITS/ML SUBCUT SCH ×4 (07:50→21:00)
[2019-08-27 08:00] VITALS: BP 123/82
[2019-08-27] MEDS: IPRATROPIUM/ALBUTEROL 0.5-3(2.5)MG/3ML NEB HHN SCH ×3 (08:12→21:45)
[2019-08-27] MEDS: BUDESONIDE 0.5MG/2ML NEB HHN SCH ×2 (08:13→21:44)
[2019-08-27] MEDS: DOCUSATE SODIUM 100MG CAPSULE PO SCH ×2 (09:27→18:12)
[2019-08-27] MEDS: METHADONE HCL 10MG TABLET PO SCH (09:36)
[2019-08-27 11:23] VITALS: BP 119/79
[2019-08-27] MEDS: METOLAZONE 10MG TABLET PO SCH (11:25)
[2019-08-27] MEDS: AMLODIPINE 2.5MG TABLET PO SCH ×2 (11:25→21:00)
[2019-08-27 16:00] VITALS: BP 103/65
[2019-08-27] MEDS: INSULIN GLARGINE UD 100 UNITS/ML SYR SUBCUT SCH (22:00)
[2019-08-27] MEDS: ENOXAPARIN 40MG/0.4ML SYR SUBCUT SCH (22:08)
[2019-08-28] VITALS: BP 103/56
[2019-08-28] MEDS: IPRATROPIUM/ALBUTEROL 0.5-3(2.5)MG/3ML NEB HHN SCH ×3 (03:03→13:19)
[2019-08-28 04:00] VITALS: BP 98/61
[2019-08-28] MEDS: SODIUM CHLORIDE 0.9% INJ 3ML FLUSH IVF SCH ×2 (06:31→13:59)
[2019-08-28] MEDS: BLOOD SUGAR DIAGNOSTIC STRIP TEST SCH ×2 (07:20→12:20)
[2019-08-28] MEDS: INSULIN LISPRO 100 UNITS/ML SUBCUT SCH ×2 (07:50→12:50)
[2019-08-28 08:00] VITALS: BP 97/57
[2019-08-28] MEDS: METOLAZONE 10MG TABLET PO SCH (09:00)
[2019-08-28] MEDS: AMLODIPINE 2.5MG TABLET PO SCH (09:00)
[2019-08-28] MEDS: BUDESONIDE 0.5MG/2ML NEB HHN SCH (09:35)
[2019-08-28] MEDS: FUROSEMIDE 40MG/4ML VIAL IVP SCH (09:40)
[2019-08-28] MEDS: METHADONE HCL 10MG TABLET PO SCH (09:41)
[2019-08-28] MEDS: DOCUSATE SODIUM 100MG CAPSULE PO SCH (09:42)
[2019-08-28 11:36] VITALS: BP 113/70
[2019-08-28 16:00] VITALS: BP 90/48
== END 2019-08-28 19:20 | disposition home or self-care (01) | DRG 291 ==
LOC: ER 13:57 → 6WST 16:54 → EDBEDREQ 17:08 → ENRESERV 20:08
PROVIDERS: ADMIT Internal Medicine; ATTEND Internal Medicine
DX: I11.0 Hypertensive heart disease with heart failure (principal); J96.20 Acute and chronic respiratory failure, unspecified whether with hypoxia or hypercapnia; J44.1 Chronic obstructive pulmonary disease with (acute) exacerbation; I50.33 Acute on chronic diastolic (congestive) heart failure; E66.9 Obesity, unspecified; M19.90 Unspecified osteoarthritis, unspecified site; E11.9 Type 2 diabetes mellitus without complications; G89.29 Other chronic pain; M54.9 Dorsalgia, unspecified; M47.896 Other spondylosis, lumbar region; Z87.891 Personal history of nicotine dependence; Z99.81 Dependence on supplemental oxygen; Z83.3 Family history of diabetes mellitus; Z79.899 Other long term (current) drug therapy
CPT/HCPCS: 36415; 71045; 82962; 83735; 83880; 84484; 93005; 93970; 94640; 96374; 99285; C1893; J1650; J1815; J1940; J2930; J7611; J7620; J7626

== ENCOUNTER 2019-09-28 13:19 | Inpatient (IN) | payer MEDICARE, MEDICAID ==
[~2019-09-28] VITALS: Ht 185.4 cm; Wt 101.2 kg
[2019-09-28 16:26] LABS: CHLORIDE 99 mEq/L (98-107)
[2019-09-28 16:33] LABS: BASOPHILS % 0.6 % (0.0-2.0); EOSINOPHILS % 1.1 % (0.0-5.0); HEMOGLOBIN. 14.2 g/dL (14.0-18.0); LYMPHOCYTES % 17.6 % (20.0-50.0); MEAN CORPUSCULAR HEMOGLOBIN 32.7 pg (28.0-32.0); MEAN CORPUSCULAR VOLUME 96.6 fL (80.0-94.0); MEAN PLATELET VOLUME 8.3 fl (7.4-10.4); MONOCYTES % 8.8 % (2.0-8.0); NEUTROPHILS % 71.9 % (40.0-76.0); PLATELET 183 x1000/uL (130-400); RED BLOOD CELL COUNT 4.35 mill/uL (4.7-6.1); RED CELL DISTRIBUTION WIDTH 12.4 % (11.6-14.6)
[2019-09-28 17:12] LABS: PLATELET ESTIMATE NORMAL
[2019-09-28] MEDS ORDERED: ACETAMINOPHEN 500MG TABLET PO ONE (17:45)
[2019-09-28] MEDS ORDERED: FUROSEMIDE 40MG/4ML VIAL IVP ONE (17:45)
[2019-09-28] MEDS ORDERED: LORAZEPAM 0.5MG TABLET PO PRN (19:15)
[2019-09-28] MEDS ORDERED: LACTULOSE 20G/30ML UDC PO PRN (19:15)
[2019-09-28] MEDS ORDERED: IPRATROPIUM/ALBUTEROL 0.5-3(2.5)MG/3ML NEB NEB PRN (19:15)
[2019-09-28] MEDS ORDERED: TEMAZEPAM 15MG CAPSULE PO PRN (19:15)
[2019-09-28] MEDS ORDERED: DEXTROSE 50% WATER 50ML SYRINGE IV PRN (19:15)
[2019-09-28] MEDS ORDERED: FUROSEMIDE 40MG/4ML VIAL IVP SCH (19:15)
[2019-09-28] MEDS ORDERED: ONDANSETRON HCL 4MG/2ML INJ IV PRN (19:15)
[2019-09-28] MEDS ORDERED: GUAIFENESIN 200MG/10ML SUGAR FREE UDC PO PRN ×2 (19:15)
[2019-09-28] MEDS ORDERED: DIPHENHYDRAMINE 50MG/ML VIAL IV PRN (19:15)
[2019-09-28] MEDS ORDERED: MAGNESIUM/ALUMINUM HYDROXIDE/SIMETHICONE 30ML UDC PO PRN (19:15)
[2019-09-28] MEDS: HYDROCODONE/ACETAMINOPHEN 10/325MG TABLET PO PRN (20:57)
[2019-09-28 22:00] VITALS: BP 140/84
[2019-09-28] MEDS: INSULIN LISPRO 100 UNITS/ML SUBCUT SCH (22:00)
[2019-09-28] MEDS: BLOOD SUGAR DIAGNOSTIC STRIP TEST SCH (22:00)
[2019-09-28 22:30] VITALS: BP 140/84
[2019-09-28] MEDS: FUROSEMIDE 40MG/4ML VIAL IVP SCH (22:41)
[2019-09-28] MEDS ORDERED: INSULIN GLARGINE UD 100 UNITS/ML SYR SUBCUT SCH (23:00)
[2019-09-28] MEDS: SODIUM CHLORIDE 0.9% INJ 3ML FLUSH IVF SCH (23:14)
[2019-09-28] MEDS: AMLODIPINE 2.5MG TABLET PO SCH (23:14)
[2019-09-29] VITALS (7 sets, daily range): BP systolic 108–129; BP diastolic 56–81
[2019-09-29] MEDS: IPRATROPIUM/ALBUTEROL 0.5-3(2.5)MG/3ML NEB HHN SCH ×5 (01:08→21:43)
[2019-09-29] MEDS: HYDROCODONE/ACETAMINOPHEN 10/325MG TABLET PO PRN ×3 (03:42→23:11)
[2019-09-29] MEDS: BLOOD SUGAR DIAGNOSTIC STRIP TEST SCH ×4 (06:05→20:17)
[2019-09-29] MEDS: INSULIN LISPRO 100 UNITS/ML SUBCUT SCH ×4 (06:29→21:19)
[2019-09-29] MEDS: SODIUM CHLORIDE 0.9% INJ 3ML FLUSH IVF SCH ×3 (06:30→21:14)
[2019-09-29] MEDS: AMLODIPINE 2.5MG TABLET PO SCH ×3 (08:34→21:15)
[2019-09-29] MEDS: DOCUSATE SODIUM 100MG CAPSULE PO SCH ×2 (08:34→16:53)
[2019-09-29] MEDS: METOLAZONE 10MG TABLET PO SCH (08:34)
[2019-09-29] MEDS: FUROSEMIDE 40MG/4ML VIAL IVP SCH (08:35)
[2019-09-29] MEDS: ENOXAPARIN 40MG/0.4ML SYR SUBCUT SCH (08:35)
[2019-09-29 08:42] LABS: CHLORIDE 100 mEq/L (98-107)
[2019-09-29 08:49] LABS: PHOSPHORUS 3.2 mg/dL (2.5-4.9)
[2019-09-29] MEDS: METHADONE HCL 10MG TABLET PO SCH (08:50)
[2019-09-29] MEDS: BUDESONIDE 0.5MG/2ML NEB HHN SCH ×3 (09:11→21:43)
[2019-09-29] MEDS: INSULIN GLARGINE UD 100 UNITS/ML SYR SUBCUT SCH (23:16)
[2019-09-30] VITALS: BP 129/76
[2019-09-30] MEDS: IPRATROPIUM/ALBUTEROL 0.5-3(2.5)MG/3ML NEB HHN SCH ×4 (02:02→21:56)
[2019-09-30] MEDS: CARISOPRODOL 350 MG TABLET PO PRN (02:12)
[2019-09-30 04:00] VITALS: BP 117/63
[2019-09-30] MEDS: BLOOD SUGAR DIAGNOSTIC STRIP TEST SCH ×4 (05:46→20:34)
[2019-09-30] MEDS: HYDROCODONE/ACETAMINOPHEN 10/325MG TABLET PO PRN ×4 (05:50→23:20)
[2019-09-30] MEDS: SODIUM CHLORIDE 0.9% INJ 3ML FLUSH IVF SCH ×3 (05:50→21:55)
[2019-09-30] MEDS: INSULIN LISPRO 100 UNITS/ML SUBCUT SCH ×4 (06:44→20:34)
[2019-09-30 08:00] VITALS: BP 104/64
[2019-09-30] MEDS: METHADONE HCL 10MG TABLET PO SCH (08:17)
[2019-09-30] MEDS: FUROSEMIDE 40MG/4ML VIAL IVP SCH (08:17)
[2019-09-30] MEDS: METOLAZONE 10MG TABLET PO SCH (08:18)
[2019-09-30] MEDS: AMLODIPINE 2.5MG TABLET PO SCH ×2 (08:18→20:39)
[2019-09-30] MEDS: DOCUSATE SODIUM 100MG CAPSULE PO SCH ×2 (08:18→17:43)
[2019-09-30] MEDS: ENOXAPARIN 40MG/0.4ML SYR SUBCUT SCH (08:19)
[2019-09-30 12:00] VITALS: BP 108/72
[2019-09-30] MEDS: BUDESONIDE 0.5MG/2ML NEB HHN SCH ×2 (13:40→21:57)
[2019-09-30 16:00] VITALS: BP 100/69
[2019-09-30 20:00] VITALS: BP 111/69
[2019-09-30] MEDS: INSULIN GLARGINE UD 100 UNITS/ML SYR SUBCUT SCH (21:59)
[2019-10-01] VITALS: BP 114/62
[2019-10-01] MEDS: IPRATROPIUM/ALBUTEROL 0.5-3(2.5)MG/3ML NEB HHN SCH ×4 (02:21→21:05)
[2019-10-01 04:00] VITALS: BP 115/68
[2019-10-01] MEDS: CARISOPRODOL 350 MG TABLET PO PRN ×2 (04:49→20:33)
[2019-10-01] MEDS: SODIUM CHLORIDE 0.9% INJ 3ML FLUSH IVF SCH ×3 (06:26→21:57)
[2019-10-01] MEDS: HYDROCODONE/ACETAMINOPHEN 10/325MG TABLET PO PRN ×3 (06:27→21:58)
[2019-10-01] MEDS: BLOOD SUGAR DIAGNOSTIC STRIP TEST SCH ×4 (06:27→20:32)
[2019-10-01] MEDS: INSULIN LISPRO 100 UNITS/ML SUBCUT SCH ×4 (06:27→20:32)
[2019-10-01 08:00] VITALS: BP 102/64
[2019-10-01] MEDS: METHADONE HCL 10MG TABLET PO SCH (08:29)
[2019-10-01] MEDS: ENOXAPARIN 40MG/0.4ML SYR SUBCUT SCH (08:29)
[2019-10-01] MEDS: METOLAZONE 10MG TABLET PO SCH (08:30)
[2019-10-01] MEDS: FUROSEMIDE 40MG/4ML VIAL IVP SCH (08:30)
[2019-10-01] MEDS: DOCUSATE SODIUM 100MG CAPSULE PO SCH ×2 (08:30→18:47)
[2019-10-01] MEDS: AMLODIPINE 2.5MG TABLET PO SCH ×2 (08:31→20:33)
[2019-10-01 12:00] VITALS: BP 119/81
[2019-10-01 12:08] LABS: CHLORIDE 94 mEq/L (98-107)
[2019-10-01 12:13] LABS: PHOSPHORUS 3.4 mg/dL (2.5-4.9)
[2019-10-01 16:00] VITALS: BP 107/59
[2019-10-01 20:00] VITALS: BP 130/76
[2019-10-01] MEDS: BUDESONIDE 0.5MG/2ML NEB HHN SCH (21:05)
[2019-10-01] MEDS: INSULIN GLARGINE UD 100 UNITS/ML SYR SUBCUT SCH (21:59)
[2019-10-02] VITALS: BP 111/51
[2019-10-02] MEDS: IPRATROPIUM/ALBUTEROL 0.5-3(2.5)MG/3ML NEB HHN SCH ×3 (02:55→21:29)
[2019-10-02] MEDS: CARISOPRODOL 350 MG TABLET PO PRN ×2 (03:10→20:51)
[2019-10-02 04:00] VITALS: BP 111/55
[2019-10-02] MEDS: INSULIN LISPRO 100 UNITS/ML SUBCUT SCH ×4 (05:49→20:51)
[2019-10-02] MEDS: BLOOD SUGAR DIAGNOSTIC STRIP TEST SCH ×4 (05:49→20:51)
[2019-10-02] MEDS: HYDROCODONE/ACETAMINOPHEN 10/325MG TABLET PO PRN ×2 (05:51→14:58)
[2019-10-02] MEDS: SODIUM CHLORIDE 0.9% INJ 3ML FLUSH IVF SCH ×3 (05:51→22:16)
[2019-10-02] MEDS: BUDESONIDE 0.5MG/2ML NEB HHN SCH ×2 (07:30→21:29)
[2019-10-02 08:27] VITALS: BP 162/77
[2019-10-02] MEDS: FUROSEMIDE 40MG/4ML VIAL IVP SCH (08:59)
[2019-10-02] MEDS: ENOXAPARIN 40MG/0.4ML SYR SUBCUT SCH (08:59)
[2019-10-02] MEDS ORDERED: HYDROMORPHONE HCL/PF 2MG/ML CPJ IV NR (09:00)
[2019-10-02] MEDS: DOCUSATE SODIUM 100MG CAPSULE PO SCH ×2 (09:01→18:54)
[2019-10-02] MEDS: METHADONE HCL 10MG TABLET PO SCH (09:01)
[2019-10-02] MEDS: METOLAZONE 10MG TABLET PO SCH (09:01)
[2019-10-02] MEDS: AMLODIPINE 2.5MG TABLET PO SCH ×2 (09:01→20:51)
[2019-10-02 12:00] VITALS: BP 134/69
[2019-10-02 16:00] VITALS: BP 129/63
[2019-10-02 18:49] LABS: CHLORIDE 92 mEq/L (98-107)
[2019-10-02] MEDS: FUROSEMIDE 20MG TABLET PO SCH (18:54)
[2019-10-02 20:00] VITALS: BP 138/65
[2019-10-02] MEDS: METHYLPREDNISOLONE SOD SUCC 40 MG/ML VIAL IV SCH (20:55)
[2019-10-02] MEDS: INSULIN GLARGINE UD 100 UNITS/ML SYR SUBCUT SCH (22:17)
[2019-10-03] VITALS: BP 123/58
[2019-10-03] MEDS: IPRATROPIUM/ALBUTEROL 0.5-3(2.5)MG/3ML NEB HHN SCH ×5 (02:43→20:49)
[2019-10-03] MEDS: HYDROCODONE/ACETAMINOPHEN 10/325MG TABLET PO PRN ×3 (03:35→17:55)
[2019-10-03 04:00] VITALS: BP 101/56
[2019-10-03] MEDS: SODIUM CHLORIDE 0.9% INJ 3ML FLUSH IVF SCH ×3 (05:38→20:10)
[2019-10-03] MEDS: INSULIN LISPRO 100 UNITS/ML SUBCUT SCH ×4 (05:42→20:48)
[2019-10-03] MEDS: BLOOD SUGAR DIAGNOSTIC STRIP TEST SCH ×4 (05:42→20:48)
[2019-10-03 08:00] VITALS: BP_SYST 114; BP_SYST 119; BP_DIAS 71; BP_DIAS 72
[2019-10-03] MEDS: METHADONE HCL 10MG TABLET PO SCH (08:09)
[2019-10-03] MEDS: FUROSEMIDE 20MG TABLET PO SCH ×2 (08:10→17:53)
[2019-10-03] MEDS: METHYLPREDNISOLONE SOD SUCC 40 MG/ML VIAL IV SCH ×2 (08:10→20:09)
[2019-10-03] MEDS: DOCUSATE SODIUM 100MG CAPSULE PO SCH ×2 (08:10→17:53)
[2019-10-03] MEDS: AMLODIPINE 2.5MG TABLET PO SCH ×2 (09:00→20:10)
[2019-10-03] MEDS: BUDESONIDE 0.5MG/2ML NEB HHN SCH ×2 (09:38→21:00)
[2019-10-03 09:52] LABS: BG BASE EXCESS 3.8 mmol/L (-2.0-2.0); BG CARBOXYHEMOGLOBIN 0.9 % (0.5-1.5); BG DEOXYHEMOGLOBIN 12.1 % (0.0-5.0); BG FRACTION INSPIRED OXYGEN 21; BG HCO3 ACT 28.2 mmol/L (22.0-26.0); BG METHEMOGLOBIN 0.2 % (0.0-1.5); BG OXYGEN SATURATION 87.8 % (92.0-98.5); BG OXYHEMOGLOBIN 86.8 % (94.0-97.0); BG PCO2 41.7 mmHg (35.0-45.0); BG PH 7.448 (7.350-7.450); BG PO2 54.1 mmHg (75.0-100.0); BG SAMPLE SITE RIGHT BRACHIAL; BG TOTAL HEMOGLOBIN 16.4 g/dL (12.0-18.0); BG VENT MODE ROOM AIR
[2019-10-03] MEDS ORDERED: POTASSIUM CHLORIDE 20MEQ TABLET SR PO SCH (10:00)
[2019-10-03 12:00] VITALS: BP_SYST 107; BP_SYST 114; BP_SYST 116; BP_DIAS 71; BP_DIAS 74; BP_DIAS 75
[2019-10-03 12:26] LABS: PROTHROMBIN TIME 10.7 sec (9.6-11.0)
[2019-10-03] MEDS: ACETAMINOPHEN 325MG TABLET PO PRN (15:30)
[2019-10-03 16:00] VITALS: BP 107/75
[2019-10-03 20:00] VITALS: BP 118/64
[2019-10-03] MEDS: CARISOPRODOL 350 MG TABLET PO PRN (20:09)
[2019-10-03] MEDS: INSULIN GLARGINE UD 100 UNITS/ML SYR SUBCUT SCH (21:24)
[2019-10-04] VITALS: BP 118/73
[2019-10-04] MEDS ORDERED: LORAZEPAM 2MG/ML CPJ IV PRN ×2 (00:15)
[2019-10-04] MEDS: LORAZEPAM 0.5MG TABLET PO PRN ×2 (00:16→21:19)
[2019-10-04] MEDS: HYDROCODONE/ACETAMINOPHEN 10/325MG TABLET PO PRN ×3 (00:18→18:51)
[2019-10-04 04:00] VITALS: BP 104/67
[2019-10-04] MEDS: IPRATROPIUM/ALBUTEROL 0.5-3(2.5)MG/3ML NEB HHN SCH ×7 (04:00→23:46)
[2019-10-04] MEDS: INSULIN LISPRO 100 UNITS/ML SUBCUT SCH ×4 (06:22→21:38)
[2019-10-04] MEDS: BLOOD SUGAR DIAGNOSTIC STRIP TEST SCH ×4 (06:22→21:00)
[2019-10-04] MEDS: SODIUM CHLORIDE 0.9% INJ 3ML FLUSH IVF SCH ×3 (06:22→21:37)
[2019-10-04 07:35] LABS: BASOPHILS % 0.3 % (0.0-2.0); EOSINOPHILS % 0.9 % (0.0-5.0); HEMATOCRIT. 44.4 % (42.0-52.0); HEMOGLOBIN. 14.9 g/dL (14.0-18.0); LYMPHOCYTES % 17.2 % (20.0-50.0); MEAN CORPUSCULAR HEMOGLOBIN 32.5 pg (28.0-32.0); MEAN CORPUSCULAR VOLUME 96.7 fL (80.0-94.0); MEAN PLATELET VOLUME 8.2 fl (7.4-10.4); MONOCYTES % 12.2 % (2.0-8.0); NEUTROPHILS % 69.4 % (40.0-76.0); PLATELET 215 x1000/uL (130-400); RED BLOOD CELL COUNT 4.59 mill/uL (4.7-6.1); RED CELL DISTRIBUTION WIDTH 12.4 % (11.6-14.6)
[2019-10-04 08:00] VITALS: BP 99/62
[2019-10-04 08:05] LABS: CHLORIDE 94 mEq/L (98-107)
[2019-10-04 08:12] LABS: LDL CHOLESTEROL 91 mg/dL (5-100)
[2019-10-04 08:14] LABS: HDL CHOLESTEROL 76 mg/dL (40-59)
[2019-10-04] MEDS: BUDESONIDE 0.5MG/2ML NEB HHN SCH ×2 (08:34→21:00)
[2019-10-04] MEDS: DOCUSATE SODIUM 100MG CAPSULE PO SCH ×2 (08:49→17:22)
[2019-10-04] MEDS: FUROSEMIDE 20MG TABLET PO SCH ×2 (08:49→17:22)
[2019-10-04] MEDS: METHADONE HCL 10MG TABLET PO SCH (08:49)
[2019-10-04] MEDS: CARISOPRODOL 350 MG TABLET PO PRN ×2 (08:49→21:19)
[2019-10-04] MEDS: AMLODIPINE 2.5MG TABLET PO SCH ×2 (08:50→21:32)
[2019-10-04] MEDS: METHYLPREDNISOLONE SOD SUCC 40 MG/ML VIAL IV SCH ×2 (08:50→21:19)
[2019-10-04] MEDS ORDERED: KCL 20MEQ/100ML PREMIX 100 ML IV NR (09:00)
[2019-10-04 12:00] VITALS: BP 140/80
[2019-10-04 16:00] VITALS: BP 115/75
[2019-10-04 20:00] VITALS: BP 129/40
[2019-10-04] MEDS: INSULIN GLARGINE UD 100 UNITS/ML SYR SUBCUT SCH (21:38)
[2019-10-05] VITALS (44 sets, daily range): BP systolic 55–165; BP diastolic 39–103
[2019-10-05] MEDS: HYDROCODONE/ACETAMINOPHEN 10/325MG TABLET PO PRN (01:41)
[2019-10-05] MEDS: IPRATROPIUM/ALBUTEROL 0.5-3(2.5)MG/3ML NEB HHN SCH ×4 (04:00→20:30)
[2019-10-05] MEDS ORDERED: HYDROMORPHONE HCL/PF 2MG/ML CPJ IV PRN ×2 (06:00→12:45)
[2019-10-05] MEDS ORDERED: DEXT 5%/0.45% NACL 1000ML 1,000 ML IV SCH (06:00)
[2019-10-05] MEDS ORDERED: HYDROMORPHONE HCL/PF 2MG/ML CPJ IV NR (06:00)
[2019-10-05] MEDS: SODIUM CHLORIDE 0.9% INJ 3ML FLUSH IVF SCH ×3 (06:20→21:06)
[2019-10-05] MEDS: BLOOD SUGAR DIAGNOSTIC STRIP TEST SCH ×4 (06:21→21:06)
[2019-10-05] MEDS: INSULIN LISPRO 100 UNITS/ML SUBCUT SCH ×4 (06:21→21:19)
[2019-10-05 06:40] LABS: HEMATOCRIT. 42.2 % (42.0-52.0); HEMOGLOBIN. 14.4 g/dL (14.0-18.0); MEAN CORPUSCULAR HEMOGLOBIN 32.8 pg (28.0-32.0); MEAN CORPUSCULAR VOLUME 96.4 fL (80.0-94.0); MEAN PLATELET VOLUME 8.5 fl (7.4-10.4); PLATELET 198 x1000/uL (130-400); RED BLOOD CELL COUNT 4.37 mill/uL (4.7-6.1); RED CELL DISTRIBUTION WIDTH 12.5 % (11.6-14.6)
[2019-10-05 07:21] LABS: PLATELET ESTIMATE NORMAL
[2019-10-05 07:23] LABS: CHLORIDE 95 mEq/L (98-107)
[2019-10-05] MEDS: BUDESONIDE 0.5MG/2ML NEB HHN SCH ×2 (08:31→20:30)
[2019-10-05] MEDS: DOCUSATE SODIUM 100MG CAPSULE PO SCH ×2 (09:00→17:00)
[2019-10-05] MEDS: AMLODIPINE 2.5MG TABLET PO SCH ×2 (09:00→20:34)
[2019-10-05] MEDS: FUROSEMIDE 20MG TABLET PO SCH ×2 (09:00→17:00)
[2019-10-05] MEDS: METHYLPREDNISOLONE SOD SUCC 40 MG/ML VIAL IV SCH (09:19)
[2019-10-05] MEDS ORDERED: NORMAL SALINE 0.9% 10 ML SYR ONE ×2 (10:37→14:19)
[2019-10-05] MEDS ORDERED: THROMBIN (BOVINE) 5000 UNITS/VIAL TOP ONE ×3 (10:37→13:59)
[2019-10-05] MEDS ORDERED: BACITRACIN 50,000 UNITS/VIAL ONE ×2 (10:38→14:19)
[2019-10-05] MEDS ORDERED: LIDOCAINE HCL/EPINEPHRINE 1%-EPI 1:100,000 20 ML VIAL ONE (10:38)
[2019-10-05] MEDS ORDERED: NEOSTIGMINE METHYLSULFATE 1MG/ML 10 ML VIAL ONE (11:02)
[2019-10-05] MEDS ORDERED: FENTANYL CITRATE/PF 50MCG/ML 2ML VIAL ONE (11:02)
[2019-10-05] MEDS ORDERED: PROPOFOL 200MG/20ML VIAL IV ONE (11:02)
[2019-10-05] MEDS ORDERED: ROCURONIUM BROMIDE 10MG/ML VIAL 5ML IV ONE (11:02)
[2019-10-05] MEDS ORDERED: MIDAZOLAM HCL 2 MG/2 ML VIAL ONE ×2 (11:03→15:19)
[2019-10-05] MEDS ORDERED: GLYCOPYRROLATE 0.2 MG/ML 2ML VIAL ONE (11:03)
[2019-10-05] MEDS ORDERED: MORPHINE SULFATE 2 MG/ML CPJ (NOT FOR IM USE) IV PRN ×2 (11:45→16:00)
[2019-10-05] MEDS ORDERED: FENTANYL CITRATE/PF 50MCG/ML 5ML VIAL ONE (11:51)
[2019-10-05] MEDS ORDERED: ONDANSETRON HCL 4MG/2ML INJ ONE ×2 (11:51→15:25)
[2019-10-05] MEDS ORDERED: HYDROMORPHONE HCL/PF 2MG/ML (OR) ONE (11:53)
[2019-10-05] MEDS: DEXAMETHASONE 4MG/ML 1ML VIAL IV SCH ×2 (12:00→17:42)
[2019-10-05] MEDS ORDERED: LABETALOL 5MG/ML SYR 20 MG/4 ML SYRINGE IV PRN (12:45)
[2019-10-05] MEDS ORDERED: MEPERIDINE HCL/PF 25MG/ML CPJ IV PRN (12:45)
[2019-10-05] MEDS ORDERED: ONDANSETRON HCL 4MG/2ML INJ IV PRN (12:45)
[2019-10-05] MEDS ORDERED: CEFAZOLIN SODIUM 1000MG/VIAL IV SCH (14:00)
[2019-10-05] MEDS ORDERED: DEXAMETHASONE 4MG/ML 1ML VIAL ONE (15:25)
[2019-10-05] MEDS ORDERED: HYDRALAZINE 20MG/ML VIAL ONE (15:49)
[2019-10-05] MEDS ORDERED: EPHEDRINE SULFATE 50MG/ML VIAL ONE (15:50)
[2019-10-05] MEDS ORDERED: SODIUM CHLORIDE 0.9% 10ML VIAL ONE (15:58)
[2019-10-05] MEDS: NICARDIPINE 100 MG in SODIUM CHLORIDE 0.9% 60 ML IV PRN (16:39)
[2019-10-05 17:24] LABS: BG BASE EXCESS 3.9 mmol/L (-2.0-2.0); BG CARBOXYHEMOGLOBIN 0.8 % (0.5-1.5); BG DEOXYHEMOGLOBIN 2.6 % (0.0-5.0); BG FRACTION INSPIRED OXYGEN 50; BG HCO3 ACT 30.1 mmol/L (22.0-26.0); BG METHEMOGLOBIN 0.3 % (0.0-1.5); BG OXYGEN SATURATION 97.4 % (92.0-98.5); BG OXYHEMOGLOBIN 96.3 % (94.0-97.0); BG PCO2 50.8 mmHg (35.0-45.0); BG PO2 102.6 mmHg (75.0-100.0); BG PRESSURE SUPPORT 12; BG SAMPLE SITE A-LINE; BG TIDAL VOLUME(mL) 700 mL; BG TOTAL HEMOGLOBIN 15.5 g/dL (12.0-18.0); BG VENT MODE VENT - SIMV; BG VENT RATE 12 set
[2019-10-05] MEDS: DEXT 5%/LACTATED RINGERS 1,000 ML IV SCH (17:42)
[2019-10-05] MEDS: CEFAZOLIN 1000MG PREMIX 50 ML IV SCH (17:43)
[2019-10-05] MEDS ORDERED: NALOXONE INJ IV PRN (18:30)
[2019-10-05] MEDS ORDERED: ONDANSETRON INJ IV PRN (18:30)
[2019-10-05] MEDS: INSULIN GLARGINE UD 100 UNITS/ML SYR SUBCUT SCH (21:17)
[2019-10-05] MEDS: HYDROMORPHONE PCA 10MG/50ML IV PRN (21:48)
[2019-10-05] MEDS: PROPOFOL 10MG/ML 100ML 100 ML IV PRN (22:13)
[2019-10-06] VITALS (89 sets, daily range): BP systolic 74–159; BP diastolic -17–120
[2019-10-06] MEDS: DEXAMETHASONE 4MG/ML 1ML VIAL IV SCH ×4 (00:03→17:51)
[2019-10-06] MEDS: IPRATROPIUM/ALBUTEROL 0.5-3(2.5)MG/3ML NEB HHN SCH ×6 (00:04→20:10)
[2019-10-06] MEDS: CEFAZOLIN 1000MG PREMIX 50 ML IV SCH ×3 (01:44→17:51)
[2019-10-06] MEDS: PROPOFOL 10MG/ML 100ML 100 ML IV PRN ×3 (02:22→11:39)
[2019-10-06] MEDS: DEXT 5%/LACTATED RINGERS 1,000 ML IV SCH ×3 (04:54→17:51)
[2019-10-06] MEDS: SODIUM CHLORIDE 0.9% INJ 3ML FLUSH IVF SCH ×3 (05:15→21:00)
[2019-10-06 05:56] LABS: HEMATOCRIT. 41.2 % (42.0-52.0); HEMOGLOBIN. 13.9 g/dL (14.0-18.0); MEAN CORPUSCULAR HEMOGLOBIN 32.8 pg (28.0-32.0); MEAN CORPUSCULAR VOLUME 97.2 fL (80.0-94.0); MEAN PLATELET VOLUME 8.4 fl (7.4-10.4); PLATELET 230 x1000/uL (130-400); RED BLOOD CELL COUNT 4.24 mill/uL (4.7-6.1); RED CELL DISTRIBUTION WIDTH 12.7 % (11.6-14.6)
[2019-10-06 05:58] LABS: CHLORIDE 100 mEq/L (98-107)
[2019-10-06] MEDS: BLOOD SUGAR DIAGNOSTIC STRIP TEST SCH ×4 (06:17→21:00)
[2019-10-06] MEDS: INSULIN LISPRO 100 UNITS/ML SUBCUT SCH ×4 (06:39→21:36)
[2019-10-06] MEDS ORDERED: LIDOCAINE HCL 1% 20ML VIAL (Pyxis) INJ ONE (07:41)
[2019-10-06 07:43] LABS: BG BASE EXCESS -0.2 mmol/L (-2.0-2.0); BG CARBOXYHEMOGLOBIN 1.1 % (0.5-1.5); BG DEOXYHEMOGLOBIN 3.5 % (0.0-5.0); BG HCO3 ACT 25.2 mmol/L (22.0-26.0); BG METHEMOGLOBIN 0.3 % (0.0-1.5); BG OXYGEN SATURATION 96.5 % (92.0-98.5); BG OXYHEMOGLOBIN 95.1 % (94.0-97.0); BG PCO2 43.6 mmHg (35.0-45.0); BG PH 7.379 (7.350-7.450); BG PO2 89.8 mmHg (75.0-100.0); BG SAMPLE SITE A-LINE; BG TIDAL VOLUME(mL) 500 mL; BG TOTAL HEMOGLOBIN 14.2 g/dL (12.0-18.0); BG VENT MODE VENT - A/C; BG VENT RATE 12 set
[2019-10-06 07:58] LABS: PLATELET ESTIMATE NORMAL
[2019-10-06] MEDS: FUROSEMIDE 20MG TABLET PO SCH (08:36)
[2019-10-06] MEDS: DOCUSATE SODIUM 100MG CAPSULE PO SCH ×2 (08:36→16:10)
[2019-10-06] MEDS: AMLODIPINE 2.5MG TABLET PO SCH ×2 (08:36→20:19)
[2019-10-06] MEDS: METHADONE HCL 10MG TABLET PO SCH (08:36)
[2019-10-06] MEDS: NICARDIPINE 100 MG in SODIUM CHLORIDE 0.9% 60 ML IV PRN ×2 (08:44→19:10)
[2019-10-06] MEDS: FUROSEMIDE 100MG/10ML VIAL IV SCH ×2 (11:08→17:51)
[2019-10-06] MEDS ORDERED: PROPOFOL 10MG/ML 100ML 100 ML IV PRN (15:05)
[2019-10-06 17:22] LABS: BG BASE EXCESS 4.2 mmol/L (-2.0-2.0); BG CARBOXYHEMOGLOBIN 0.8 % (0.5-1.5); BG DEOXYHEMOGLOBIN 6.6 % (0.0-5.0); BG HCO3 ACT 29.4 mmol/L (22.0-26.0); BG METHEMOGLOBIN 0.4 % (0.0-1.5); BG OXYGEN SATURATION 93.3 % (92.0-98.5); BG OXYHEMOGLOBIN 92.2 % (94.0-97.0); BG PCO2 45.9 mmHg (35.0-45.0); BG PH 7.425 (7.350-7.450); BG PO2 66.3 mmHg (75.0-100.0); BG SAMPLE SITE A-LINE; BG TIDAL VOLUME(mL) 550 mL; BG TOTAL HEMOGLOBIN 15.1 g/dL (12.0-18.0); BG VENT MODE VENT - SIMV; BG VENT RATE 10 set
[2019-10-06] MEDS: INSULIN GLARGINE UD 100 UNITS/ML SYR SUBCUT SCH (22:09)
[2019-10-07] VITALS (89 sets, daily range): BP systolic 121–163; BP diastolic 54–111
[2019-10-07] MEDS: DEXAMETHASONE 4MG/ML 1ML VIAL IV SCH ×5 (00:38→23:45)
[2019-10-07] MEDS: NICARDIPINE 100 MG in SODIUM CHLORIDE 0.9% 60 ML IV PRN ×3 (01:22→17:24)
[2019-10-07] MEDS: IPRATROPIUM/ALBUTEROL 0.5-3(2.5)MG/3ML NEB HHN SCH ×6 (01:41→20:30)
[2019-10-07] MEDS: DEXT 5%/LACTATED RINGERS 1,000 ML IV SCH ×3 (04:40→23:45)
[2019-10-07] MEDS: HYDROMORPHONE PCA 10MG/50ML IV PRN (05:06)
[2019-10-07] MEDS: SODIUM CHLORIDE 0.9% INJ 3ML FLUSH IVF SCH ×3 (05:11→21:11)
[2019-10-07 05:38] LABS: HEMATOCRIT. 42.1 % (42.0-52.0); MEAN CORPUSCULAR HEMOGLOBIN 32.3 pg (28.0-32.0); MEAN CORPUSCULAR VOLUME 97.5 fL (80.0-94.0); MEAN PLATELET VOLUME 8.4 fl (7.4-10.4); PLATELET 231 x1000/uL (130-400); RED BLOOD CELL COUNT 4.32 mill/uL (4.7-6.1); RED CELL DISTRIBUTION WIDTH 12.7 % (11.6-14.6)
[2019-10-07 05:45] LABS: CHLORIDE 100 mEq/L (98-107)
[2019-10-07] MEDS: BLOOD SUGAR DIAGNOSTIC STRIP TEST SCH ×4 (05:49→21:00)
[2019-10-07] MEDS: FUROSEMIDE 100MG/10ML VIAL IV SCH ×2 (05:50→17:15)
[2019-10-07] MEDS: INSULIN LISPRO 100 UNITS/ML SUBCUT SCH ×4 (06:07→21:10)
[2019-10-07] MEDS: AMLODIPINE 2.5MG TABLET PO SCH ×2 (09:00→21:09)
[2019-10-07] MEDS: DOCUSATE SODIUM 100MG CAPSULE PO SCH ×2 (09:00→16:33)
[2019-10-07] MEDS: METHADONE HCL 10MG TABLET PO SCH (09:00)
[2019-10-07 10:20] LABS: BG BASE EXCESS 8.3 mmol/L (-2.0-2.0); BG CARBOXYHEMOGLOBIN 0.5 % (0.5-1.5); BG DEOXYHEMOGLOBIN 6.2 % (0.0-5.0); BG FRACTION INSPIRED OXYGEN 50; BG HCO3 ACT 34.3 mmol/L (22.0-26.0); BG METHEMOGLOBIN 0.5 % (0.0-1.5); BG OXYGEN SATURATION 93.7 % (92.0-98.5); BG OXYHEMOGLOBIN 92.8 % (94.0-97.0); BG PCO2 52.1 mmHg (35.0-45.0); BG PH 7.436 (7.350-7.450); BG PO2 69.8 mmHg (75.0-100.0); BG PRESSURE SUPPORT 14; BG SAMPLE SITE LEFT RADIAL; BG TIDAL VOLUME(mL) 550 mL; BG TOTAL HEMOGLOBIN 14.8 g/dL (12.0-18.0); BG VENT MODE VENT - PCV; BG VENT RATE 6 set
[2019-10-07 10:43] LABS: PLATELET ESTIMATE NORMAL
[2019-10-07 13:46] LABS: BG BASE EXCESS 6.3 mmol/L (-2.0-2.0); BG CARBOXYHEMOGLOBIN 0.5 % (0.5-1.5); BG DEOXYHEMOGLOBIN 7.8 % (0.0-5.0); BG FRACTION INSPIRED OXYGEN 50; BG HCO3 ACT 30.8 mmol/L (22.0-26.0); BG METHEMOGLOBIN 0.4 % (0.0-1.5); BG OXYGEN SATURATION 92.1 % (92.0-98.5); BG OXYHEMOGLOBIN 91.3 % (94.0-97.0); BG PCO2 43.6 mmHg (35.0-45.0); BG PH 7.467 (7.350-7.450); BG PO2 62.1 mmHg (75.0-100.0); BG PRESSURE SUPPORT 14; BG SAMPLE SITE RIGHT RADIAL; BG TOTAL HEMOGLOBIN 14.8 g/dL (12.0-18.0); BG VENT MODE VENT - CPAP
[2019-10-07] MEDS: FAMOTIDINE 20MG/2ML VIAL IV SCH (21:09)
[2019-10-07] MEDS: INSULIN GLARGINE UD 100 UNITS/ML SYR SUBCUT SCH (21:11)
[2019-10-08] VITALS (95 sets, daily range): BP systolic 72–155; BP diastolic 28–87
[2019-10-08] MEDS: NICARDIPINE 100 MG in SODIUM CHLORIDE 0.9% 60 ML IV PRN ×2 (00:43→08:15)
[2019-10-08] MEDS: IPRATROPIUM/ALBUTEROL 0.5-3(2.5)MG/3ML NEB HHN SCH ×6 (00:45→20:57)
[2019-10-08] MEDS: FUROSEMIDE 100MG/10ML VIAL IV SCH ×2 (05:54→17:16)
[2019-10-08] MEDS: DEXAMETHASONE 4MG/ML 1ML VIAL IV SCH ×3 (05:54→17:15)
[2019-10-08] MEDS: SODIUM CHLORIDE 0.9% INJ 3ML FLUSH IVF SCH ×3 (06:00→21:07)
[2019-10-08 06:21] LABS: HEMATOCRIT. 40.7 % (42.0-52.0); HEMOGLOBIN. 13.4 g/dL (14.0-18.0); MEAN CORPUSCULAR VOLUME 97.4 fL (80.0-94.0); MEAN PLATELET VOLUME 8.9 fl (7.4-10.4); PLATELET 211 x1000/uL (130-400); RED BLOOD CELL COUNT 4.18 mill/uL (4.7-6.1); RED CELL DISTRIBUTION WIDTH 12.6 % (11.6-14.6)
[2019-10-08 06:26] LABS: CHLORIDE 100 mEq/L (98-107)
[2019-10-08] MEDS: BLOOD SUGAR DIAGNOSTIC STRIP TEST SCH ×4 (06:30→21:00)
[2019-10-08] MEDS: INSULIN LISPRO 100 UNITS/ML SUBCUT SCH ×4 (06:43→21:05)
[2019-10-08] MEDS: AMLODIPINE 2.5MG TABLET PO SCH ×2 (08:31→21:04)
[2019-10-08] MEDS: DOCUSATE SODIUM 100MG CAPSULE PO SCH ×2 (08:31→17:15)
[2019-10-08] MEDS: FAMOTIDINE 20MG/2ML VIAL IV SCH ×2 (08:31→21:03)
[2019-10-08] MEDS: METHADONE HCL 10MG TABLET PO SCH (08:32)
[2019-10-08 08:49] LABS: PLATELET ESTIMATE NORMAL
[2019-10-08] MEDS: DEXT 5%/LACTATED RINGERS 1,000 ML IV SCH ×2 (08:50→18:27)
[2019-10-08] MEDS ORDERED: KCL 20MEQ/100ML PREMIX 100 ML IV NR (11:30)
[2019-10-08] MEDS: INSULIN GLARGINE UD 100 UNITS/ML SYR SUBCUT SCH (21:04)
[2019-10-08] MEDS: HYDROMORPHONE PCA 10MG/50ML IV PRN (22:11)
[2019-10-09] VITALS (81 sets, daily range): BP systolic 93–159; BP diastolic 32–93
[2019-10-09] MEDS: IPRATROPIUM/ALBUTEROL 0.5-3(2.5)MG/3ML NEB HHN SCH ×7 (00:49→23:53)
[2019-10-09] MEDS: DEXAMETHASONE 4MG/ML 1ML VIAL IV SCH ×4 (00:49→17:08)
[2019-10-09] MEDS: DEXT 5%/LACTATED RINGERS 1,000 ML IV SCH (04:11)
[2019-10-09] MEDS: SODIUM CHLORIDE 0.9% INJ 3ML FLUSH IVF SCH ×3 (06:00→21:26)
[2019-10-09] MEDS: BLOOD SUGAR DIAGNOSTIC STRIP TEST SCH ×4 (06:30→21:26)
[2019-10-09] MEDS: FUROSEMIDE 100MG/10ML VIAL IV SCH (06:40)
[2019-10-09] MEDS: INSULIN LISPRO 100 UNITS/ML SUBCUT SCH ×4 (06:41→21:42)
[2019-10-09] MEDS: DOCUSATE SODIUM 100MG CAPSULE PO SCH ×2 (08:48→17:08)
[2019-10-09] MEDS: FAMOTIDINE 20MG/2ML VIAL IV SCH ×2 (08:48→21:41)
[2019-10-09] MEDS: METHADONE HCL 10MG TABLET PO SCH (08:48)
[2019-10-09] MEDS: AMLODIPINE 2.5MG TABLET PO SCH (08:49)
[2019-10-09 09:52] LABS: BG BASE EXCESS 6.9 mmol/L (-2.0-2.0); BG CARBOXYHEMOGLOBIN 0.4 % (0.5-1.5); BG DEOXYHEMOGLOBIN 15.8 % (0.0-5.0); BG FRACTION INSPIRED OXYGEN 21; BG HCO3 ACT 32.1 mmol/L (22.0-26.0); BG OXYGEN SATURATION 84.1 % (92.0-98.5); BG OXYHEMOGLOBIN 83.8 % (94.0-97.0); BG PCO2 47.3 mmHg (35.0-45.0); BG PH 7.449 (7.350-7.450); BG PO2 48.3 mmHg (75.0-100.0); BG SAMPLE SITE RIGHT RADIAL; BG TOTAL HEMOGLOBIN 14.1 g/dL (12.0-18.0); BG VENT MODE ROOM AIR
[2019-10-09 11:58] LABS: CHLORIDE 94 mEq/L (98-107)
[2019-10-09 12:28] LABS: HEMATOCRIT. 38.3 % (42.0-52.0); HEMOGLOBIN. 12.9 g/dL (14.0-18.0); MEAN CORPUSCULAR HEMOGLOBIN 32.4 pg (28.0-32.0); MEAN CORPUSCULAR VOLUME 96.6 fL (80.0-94.0); MEAN PLATELET VOLUME 8.8 fl (7.4-10.4); PLATELET 166 x1000/uL (130-400); RED BLOOD CELL COUNT 3.97 mill/uL (4.7-6.1); RED CELL DISTRIBUTION WIDTH 12.3 % (11.6-14.6)
[2019-10-09 15:24] LABS: BG BASE EXCESS 3.8 mmol/L (-2.0-2.0); BG CARBOXYHEMOGLOBIN 0.7 % (0.5-1.5); BG DEOXYHEMOGLOBIN 12.5 % (0.0-5.0); BG FRACTION INSPIRED OXYGEN 32; BG HCO3 ACT 27.5 mmol/L (22.0-26.0); BG METHEMOGLOBIN 0.1 % (0.0-1.5); BG OXYGEN SATURATION 87.4 % (92.0-98.5); BG OXYHEMOGLOBIN 86.7 % (94.0-97.0); BG PCO2 38.5 mmHg (35.0-45.0); BG PH 7.472 (7.350-7.450); BG PO2 52.9 mmHg (75.0-100.0); BG SAMPLE SITE RIGHT RADIAL; BG TOTAL HEMOGLOBIN 13.8 g/dL (12.0-18.0); BG VENT MODE NASAL CANNULA
[2019-10-09 16:52] LABS: PLATELET ESTIMATE NORMAL
[2019-10-09] MEDS: AMLODIPINE 5MG TABLET PO SCH (21:41)
[2019-10-09] MEDS: INSULIN GLARGINE UD 100 UNITS/ML SYR SUBCUT SCH (21:47)
[2019-10-10] VITALS: BP 143/77
[2019-10-10] MEDS: DEXAMETHASONE 4MG/ML 1ML VIAL IV SCH ×4 (00:37→16:51)
[2019-10-10 04:00] VITALS: BP 150/88
[2019-10-10] MEDS: IPRATROPIUM/ALBUTEROL 0.5-3(2.5)MG/3ML NEB HHN SCH ×5 (04:01→22:27)
[2019-10-10] MEDS: SODIUM CHLORIDE 0.9% INJ 3ML FLUSH IVF SCH ×3 (05:52→22:57)
[2019-10-10] MEDS: BLOOD SUGAR DIAGNOSTIC STRIP TEST SCH ×4 (06:36→20:53)
[2019-10-10] MEDS: INSULIN LISPRO 100 UNITS/ML SUBCUT SCH ×4 (06:38→20:53)
[2019-10-10 06:45] LABS: HEMATOCRIT. 37.9 % (42.0-52.0); HEMOGLOBIN. 13.1 g/dL (14.0-18.0); MEAN CORPUSCULAR HEMOGLOBIN 33.2 pg (28.0-32.0); MEAN CORPUSCULAR VOLUME 95.7 fL (80.0-94.0); MEAN PLATELET VOLUME 8.7 fl (7.4-10.4); PLATELET 165 x1000/uL (130-400); RED BLOOD CELL COUNT 3.96 mill/uL (4.7-6.1); RED CELL DISTRIBUTION WIDTH 11.9 % (11.6-14.6)
[2019-10-10 08:33] VITALS: BP 110/75
[2019-10-10] MEDS: DOCUSATE SODIUM 100MG CAPSULE PO SCH ×2 (08:49→16:51)
[2019-10-10] MEDS: FAMOTIDINE 20MG/2ML VIAL IV SCH ×2 (08:49→20:52)
[2019-10-10] MEDS: AMLODIPINE 5MG TABLET PO SCH ×2 (08:50→20:52)
[2019-10-10] MEDS: METHADONE HCL 10MG TABLET PO SCH (08:50)
[2019-10-10 09:13] LABS: CHLORIDE 93 mEq/L (98-107)
[2019-10-10 12:14] VITALS: BP 140/96
[2019-10-10] MEDS: MORPHINE SULFATE 2 MG/ML CPJ (NOT FOR IM USE) IV PRN (14:58)
[2019-10-10] MEDS ORDERED: FUROSEMIDE 40MG/4ML VIAL IVP NR (15:15)
[2019-10-10 16:11] VITALS: BP 151/81
[2019-10-10] MEDS: HYDROCODONE/ACETAMINOPHEN 5/325MG TABLET PO PRN ×2 (16:51→23:04)
[2019-10-10 17:22] LABS: PLATELET ESTIMATE NORMAL
[2019-10-10 20:00] VITALS: BP 126/77
[2019-10-10] MEDS: INSULIN GLARGINE UD 100 UNITS/ML SYR SUBCUT SCH (22:58)
[2019-10-11] VITALS (7 sets, daily range): BP systolic 124–167; BP diastolic 78–88
[2019-10-11] MEDS: DEXAMETHASONE 4MG/ML 1ML VIAL IV SCH ×4 (00:40→17:25)
[2019-10-11] MEDS: IPRATROPIUM/ALBUTEROL 0.5-3(2.5)MG/3ML NEB HHN SCH ×6 (01:37→20:19)
[2019-10-11] MEDS: HYDROCODONE/ACETAMINOPHEN 5/325MG TABLET PO PRN ×2 (05:09→17:42)
[2019-10-11] MEDS: SODIUM CHLORIDE 0.9% INJ 3ML FLUSH IVF SCH ×3 (05:11→21:20)
[2019-10-11] MEDS: BLOOD SUGAR DIAGNOSTIC STRIP TEST SCH ×4 (05:51→21:14)
[2019-10-11] MEDS: INSULIN LISPRO 100 UNITS/ML SUBCUT SCH ×4 (05:59→21:13)
[2019-10-11 08:13] LABS: HEMATOCRIT. 45.1 % (42.0-52.0); HEMOGLOBIN. 15.2 g/dL (14.0-18.0); MEAN CORPUSCULAR HEMOGLOBIN 32.5 pg (28.0-32.0); MEAN CORPUSCULAR VOLUME 96.3 fL (80.0-94.0); MEAN PLATELET VOLUME 8.4 fl (7.4-10.4); PLATELET 197 x1000/uL (130-400); RED BLOOD CELL COUNT 4.68 mill/uL (4.7-6.1); RED CELL DISTRIBUTION WIDTH 11.9 % (11.6-14.6)
[2019-10-11 08:54] LABS: CHLORIDE 93 mEq/L (98-107)
[2019-10-11] MEDS: DOCUSATE SODIUM 100MG CAPSULE PO SCH ×2 (09:33→17:25)
[2019-10-11] MEDS: FAMOTIDINE 20MG/2ML VIAL IV SCH ×2 (09:33→21:19)
[2019-10-11] MEDS: AMLODIPINE 5MG TABLET PO SCH (09:35)
[2019-10-11] MEDS: METHADONE HCL 10MG TABLET PO SCH (09:38)
[2019-10-11] MEDS: FUROSEMIDE 40MG/4ML VIAL IVP SCH (15:14)
[2019-10-11] MEDS: DILTIAZEM HCL 60MG TABLET PO SCH ×2 (15:15→21:11)
[2019-10-11 17:17] LABS: PLATELET ESTIMATE NORMAL
[2019-10-11] MEDS: BUDESONIDE 0.5MG/2ML NEB HHN SCH (20:19)
[2019-10-11] MEDS: MORPHINE SULFATE 2 MG/ML CPJ (NOT FOR IM USE) IV PRN (20:42)
[2019-10-11] MEDS: INSULIN GLARGINE UD 100 UNITS/ML SYR SUBCUT SCH (21:45)
[2019-10-12] VITALS: BP 159/84
[2019-10-12] MEDS: DEXAMETHASONE 4MG/ML 1ML VIAL IV SCH ×3 (00:22→13:06)
[2019-10-12] MEDS: HYDROCODONE/ACETAMINOPHEN 5/325MG TABLET PO PRN ×2 (00:33→09:10)
[2019-10-12] MEDS: IPRATROPIUM/ALBUTEROL 0.5-3(2.5)MG/3ML NEB HHN SCH ×6 (00:55→22:16)
[2019-10-12 04:00] VITALS: BP 141/85
[2019-10-12] MEDS: SODIUM CHLORIDE 0.9% INJ 3ML FLUSH IVF SCH ×3 (05:41→20:01)
[2019-10-12] MEDS: DILTIAZEM HCL 60MG TABLET PO SCH ×3 (05:42→21:33)
[2019-10-12] MEDS: BLOOD SUGAR DIAGNOSTIC STRIP TEST SCH ×4 (06:25→20:42)
[2019-10-12 07:51] LABS: HEMATOCRIT. 40.3 % (42.0-52.0); HEMOGLOBIN. 13.7 g/dL (14.0-18.0); MEAN CORPUSCULAR HEMOGLOBIN 32.3 pg (28.0-32.0); MEAN CORPUSCULAR VOLUME 95.3 fL (80.0-94.0); MEAN PLATELET VOLUME 8.9 fl (7.4-10.4); PLATELET 186 x1000/uL (130-400); RED BLOOD CELL COUNT 4.23 mill/uL (4.7-6.1); RED CELL DISTRIBUTION WIDTH 11.8 % (11.6-14.6)
[2019-10-12 08:00] VITALS: BP 130/82
[2019-10-12 08:09] LABS: CHLORIDE 96 mEq/L (98-107)
[2019-10-12] MEDS: INSULIN LISPRO 100 UNITS/ML SUBCUT SCH ×4 (09:08→21:34)
[2019-10-12] MEDS: FAMOTIDINE 20MG/2ML VIAL IV SCH ×2 (09:10→20:01)
[2019-10-12] MEDS: DOCUSATE SODIUM 100MG CAPSULE PO SCH ×2 (09:10→17:36)
[2019-10-12] MEDS: FUROSEMIDE 40MG/4ML VIAL IVP SCH (09:11)
[2019-10-12] MEDS: BUDESONIDE 0.5MG/2ML NEB HHN SCH ×2 (09:52→22:15)
[2019-10-12] MEDS: METHADONE HCL 10MG TABLET PO SCH (13:05)
[2019-10-12 13:56] LABS: PLATELET ESTIMATE NORMAL
[2019-10-12 15:02] LABS: BG BASE EXCESS 5.7 mmol/L (-2.0-2.0); BG CARBOXYHEMOGLOBIN 1.4 % (0.5-1.5); BG DEOXYHEMOGLOBIN 6.1 % (0.0-5.0); BG HCO3 ACT 28.6 mmol/L (22.0-26.0); BG METHEMOGLOBIN 0.1 % (0.0-1.5); BG OXYGEN SATURATION 93.8 % (92.0-98.5); BG OXYHEMOGLOBIN 92.4 % (94.0-97.0); BG PCO2 35.8 mmHg (35.0-45.0); BG SAMPLE SITE LEFT RADIAL; BG TOTAL HEMOGLOBIN 14.9 g/dL (12.0-18.0); BG VENT MODE NASAL CANNULA
[2019-10-12 16:00] VITALS: BP 114/70
[2019-10-12] MEDS: MORPHINE SULFATE 2 MG/ML CPJ (NOT FOR IM USE) IV PRN (17:41)
[2019-10-12 19:58] VITALS: BP 133/71
[2019-10-12] MEDS: HYDROCODONE/ACETAMINOPHEN 10/325MG TABLET PO PRN (20:01)
[2019-10-12] MEDS: INSULIN GLARGINE UD 100 UNITS/ML SYR SUBCUT SCH (22:06)
[2019-10-13] VITALS (9 sets, daily range): BP systolic 108–162; BP diastolic 49–95
[2019-10-13] MEDS: MORPHINE SULFATE 2 MG/ML CPJ (NOT FOR IM USE) IV PRN ×2 (01:44→12:10)
[2019-10-13] MEDS: IPRATROPIUM/ALBUTEROL 0.5-3(2.5)MG/3ML NEB HHN SCH ×5 (01:52→16:30)
[2019-10-13] MEDS: HYDROCODONE/ACETAMINOPHEN 10/325MG TABLET PO PRN ×2 (03:49→15:41)
[2019-10-13] MEDS: DILTIAZEM HCL 60MG TABLET PO SCH ×2 (06:00→15:40)
[2019-10-13] MEDS: SODIUM CHLORIDE 0.9% INJ 3ML FLUSH IVF SCH ×2 (06:00→15:45)
[2019-10-13] MEDS: BLOOD SUGAR DIAGNOSTIC STRIP TEST SCH ×4 (06:44→20:47)
[2019-10-13] MEDS: BUDESONIDE 0.5MG/2ML NEB HHN SCH (07:46)
[2019-10-13] MEDS: FAMOTIDINE 20MG/2ML VIAL IV SCH (08:21)
[2019-10-13] MEDS: DOCUSATE SODIUM 100MG CAPSULE PO SCH ×2 (08:21→17:15)
[2019-10-13] MEDS: FUROSEMIDE 40MG/4ML VIAL IVP SCH (08:22)
[2019-10-13] MEDS: METHADONE HCL 10MG TABLET PO SCH (08:22)
[2019-10-13] MEDS: INSULIN LISPRO 100 UNITS/ML SUBCUT SCH ×4 (08:25→20:47)
[2019-10-13] MEDS: ACETAMINOPHEN 325MG TABLET PO PRN (20:14)
== END 2019-10-13 21:55 | DRG 453 ==
LOC: ER 13:19 → 8WST 17:44 → EDBEDREQTM 18:00 → EDBEDREQ 18:00 → ENRESERV 20:25 → MICUNO 10-05 15:40 → 8WST 10-09 23:30 → 7WST 10-11 23:32
PROVIDERS: ADMIT Internal Medicine; ATTEND Internal Medicine
PROC: 0RG20A0 Fusion of 2 or more Cervical Vertebral Joints with Interbody Fusion Device, Anterior Approach, Anterior Column, Open Approach (ICD-10-PCS; principal; 2019-10-05)
PROC: 0RG2071 Fusion of 2 or more Cervical Vertebral Joints with Autologous Tissue Substitute, Posterior Approach, Posterior Column, Open Approach (ICD-10-PCS; 2019-10-05)
PROC: 5A1945Z Respiratory Ventilation, 24-96 Consecutive Hours (ICD-10-PCS; 2019-10-05)
PROC: 0RB30ZZ Excision of Cervical Vertebral Disc, Open Approach (ICD-10-PCS; 2019-10-05)
PROC: 00NW0ZZ Release Cervical Spinal Cord, Open Approach (ICD-10-PCS; 2019-10-05)
PROC: 01N10ZZ Release Cervical Nerve, Open Approach (ICD-10-PCS; 2019-10-05)
PROC: 4A11X4G Monitoring of Peripheral Nervous Electrical Activity, Intraoperative, External Approach (ICD-10-PCS; 2019-10-05)
PROC: 0BH17EZ Insertion of Endotracheal Airway into Trachea, Via Natural or Artificial Opening (ICD-10-PCS; 2019-10-05)
PROC: BR101ZZ Fluoroscopy of Cervical Spine using Low Osmolar Contrast (ICD-10-PCS; 2019-10-05)
PROC: B54NZZA Ultrasonography of Left Upper Extremity Veins, Guidance (ICD-10-PCS; 2019-10-06)
PROC: 06HY33Z Insertion of Infusion Device into Lower Vein, Percutaneous Approach (ICD-10-PCS; 2019-10-06)
DX: M48.02 Spinal stenosis, cervical region (principal); I50.33 Acute on chronic diastolic (congestive) heart failure; G82.50 Quadriplegia, unspecified; J95.821 Acute postprocedural respiratory failure; G93.41 Metabolic encephalopathy; J44.1 Chronic obstructive pulmonary disease with (acute) exacerbation; M47.12 Other spondylosis with myelopathy, cervical region; I11.0 Hypertensive heart disease with heart failure; E11.9 Type 2 diabetes mellitus without complications; E66.9 Obesity, unspecified; M19.90 Unspecified osteoarthritis, unspecified site; M48.061 Spinal stenosis, lumbar region without neurogenic claudication; E11.65 Type 2 diabetes mellitus with hyperglycemia; I48.0 Paroxysmal atrial fibrillation; M47.22 Other spondylosis with radiculopathy, cervical region; D64.9 Anemia, unspecified; E87.6 Hypokalemia; F17.210 Nicotine dependence, cigarettes, uncomplicated; G89.4 Chronic pain syndrome; R26.9 Unspecified abnormalities of gait and mobility; R13.10 Dysphagia, unspecified; Z82.49 Family history of ischemic heart disease and other diseases of the circulatory system; Z83.3 Family history of diabetes mellitus; Z99.81 Dependence on supplemental oxygen; Z79.4 Long term (current) use of insulin; Z79.899 Other long term (current) drug therapy; Z68.29 Body mass index [BMI] 29.0-29.9, adult
CPT/HCPCS: 36415; 36600; 71045; 72040; 72141; 72148; 73502; 76000; 76937; 80048; 80061; 82375; 82805; 82962; 83036; 83735; 83880; 84100; 84478; 84484; 88304; 88311; 92610; 93005; 93306; 93970; 94003; 94640; 97110; 97116; 97162; 97164; 97167; 97530; 97535; 99285; C1713; C1725; C1769; C1893; J0360; J0690; J1100; J1170; J1650; J1815; J1940; J2250; J2270; J2405; J2704; J2710; J2920; J3010; J3480; J3490; J7050; J7121; J7620; J7626

== ENCOUNTER 2019-10-13 23:12 | Inpatient (IN) | payer MEDICAID, MEDICARE ==
[~2019-10-13] VITALS: Ht 185.4 cm; Wt 101.2 kg
[2019-10-13 21:00] VITALS: BP 147/77
[2019-10-13 23:30] VITALS: BP 94/57
[2019-10-13] MEDS ORDERED: LACTULOSE 20G/30ML UDC PO PRN (23:30)
[2019-10-13] MEDS ORDERED: CARISOPRODOL 350 MG TABLET PO PRN (23:30)
[2019-10-13] MEDS ORDERED: ACETAMINOPHEN 325MG TABLET PO PRN (23:30)
[2019-10-13] MEDS ORDERED: GUAIFENESIN 200MG/10ML SUGAR FREE UDC PO PRN (23:30)
[2019-10-13] MEDS ORDERED: HYDROCODONE/ACETAMINOPHEN 10/325MG TABLET PO PRN (23:30)
[2019-10-13] MEDS ORDERED: DIPHENHYDRAMINE 25MG CAPSULE PO PRN (23:30)
[2019-10-13] MEDS ORDERED: ONDANSETRON HCL 4MG TABLET PO PRN (23:30)
[2019-10-13] MEDS ORDERED: IPRATROPIUM/ALBUTEROL 0.5-3(2.5)MG/3ML NEB HHN PRN (23:30)
[2019-10-13] MEDS ORDERED: MAGNESIUM/ALUMINUM HYDROXIDE/SIMETHICONE 30ML UDC PO PRN (23:30)
[2019-10-13] MEDS ORDERED: DILTIAZEM HCL 60MG TABLET PO SCH (23:40)
[2019-10-13] MEDS ORDERED: BLOOD SUGAR DIAGNOSTIC STRIP TEST SCH (23:41)
[2019-10-13] MEDS ORDERED: INSULIN LISPRO 100 UNITS/ML SUBCUT SCH (23:41)
[2019-10-13] MEDS ORDERED: DEXTROSE 50% WATER 50ML SYRINGE IV PRN (23:42)
[2019-10-13] MEDS ORDERED: INSULIN GLARGINE UD 100 UNITS/ML SYR SUBCUT SCH (23:50)
[2019-10-14] MEDS ORDERED: IPRATROPIUM/ALBUTEROL 0.5-3(2.5)MG/3ML NEB HHN SCH
[2019-10-14 02:48] LABS: BG BASE EXCESS 0.5 mmol/L (-2.0-2.0); BG DEOXYHEMOGLOBIN 8.5 % (0.0-5.0); BG FRACTION INSPIRED OXYGEN 100; BG HCO3 ACT 23.9 mmol/L (22.0-26.0); BG METHEMOGLOBIN 0.3 % (0.0-1.5); BG OXYGEN SATURATION 91.4 % (92.0-98.5); BG OXYHEMOGLOBIN 90.2 % (94.0-97.0); BG PCO2 34.8 mmHg (35.0-45.0); BG PH 7.454 (7.350-7.450); BG PO2 58.4 mmHg (75.0-100.0); BG SAMPLE SITE RIGHT RADIAL; BG TOTAL HEMOGLOBIN 15.8 g/dL (12.0-18.0); BG VENT MODE MASK - NRB
[2019-10-14 03:21] VITALS: BP 111/59
[2019-10-14 05:30] LABS: CHLORIDE 93 mEq/L (98-107)
[2019-10-14 06:12] LABS: HEMATOCRIT. 42.8 % (42.0-52.0); MEAN CORPUSCULAR HEMOGLOBIN 31.9 pg (28.0-32.0); MEAN CORPUSCULAR VOLUME 97.8 fL (80.0-94.0); MEAN PLATELET VOLUME 9.1 fl (7.4-10.4); PLATELET 191 x1000/uL (130-400); RED BLOOD CELL COUNT 4.38 mill/uL (4.7-6.1); RED CELL DISTRIBUTION WIDTH 12.4 % (11.6-14.6)
[2019-10-14] MEDS ORDERED: METHADONE HCL 10MG TABLET PO SCH (09:00)
[2019-10-14] MEDS ORDERED: FAMOTIDINE 20MG TABLET PO SCH (09:00)
[2019-10-14] MEDS ORDERED: DOCUSATE SODIUM 100MG CAPSULE PO SCH (09:00)
[2019-10-14] MEDS ORDERED: FUROSEMIDE 40MG TABLET PO SCH (09:00)
[2019-10-14 13:37] LABS: NUCLEATED RED BLOOD CELLS 1 /100 WBC; PLATELET ESTIMATE NORMAL
== END 2019-10-14 04:00 | disposition short-term general hospital (02) | DRG 189 ==
PROVIDERS: ADMIT Physical Medicine & Rehabilitation Spinal Cord Injury Medicine; ATTEND Internal Medicine
DX: J96.00 Acute respiratory failure, unspecified whether with hypoxia or hypercapnia (principal); G82.50 Quadriplegia, unspecified; J18.9 Pneumonia, unspecified organism; G93.40 Encephalopathy, unspecified; J44.0 Chronic obstructive pulmonary disease with (acute) lower respiratory infection; J98.11 Atelectasis; I50.40 Unspecified combined systolic (congestive) and diastolic (congestive) heart failure; R13.10 Dysphagia, unspecified; R26.9 Unspecified abnormalities of gait and mobility; R53.81 Other malaise; I11.0 Hypertensive heart disease with heart failure; G89.4 Chronic pain syndrome; E11.9 Type 2 diabetes mellitus without complications; D64.9 Anemia, unspecified; R20.0 Anesthesia of skin; R20.2 Paresthesia of skin; M48.061 Spinal stenosis, lumbar region without neurogenic claudication; Z79.891 Long term (current) use of opiate analgesic
CPT/HCPCS: 36415; 36600; 71045; 82375; 82805; 82962; 84134; J1815; J7620

== ENCOUNTER 2019-10-14 03:14 | Inpatient (IN) | payer MEDICAID, MEDICARE ==
[~2019-10-14] VITALS: Ht 182.9 cm; Wt 109.4 kg
[2019-10-14] VITALS (67 sets, daily range): BP systolic 73–142; BP diastolic 27–85
[2019-10-14] MEDS ORDERED: DILTIAZEM HCL 125 MG in DEXT 5% WATER 100 ML IV PRN (07:00)
[2019-10-14] MEDS ORDERED: SODIUM CHLORIDE 0.9% 1,000 ML IV SCH (07:00)
[2019-10-14] MEDS ORDERED: IPRATROPIUM/ALBUTEROL 0.5-3(2.5)MG/3ML NEB HHN PRN (07:45)
[2019-10-14] MEDS ORDERED: DEXTROSE 50% WATER 50ML SYRINGE IV PRN (07:45)
[2019-10-14] MEDS ORDERED: MAGNESIUM/ALUMINUM HYDROXIDE/SIMETHICONE 30ML UDC PO PRN (07:45)
[2019-10-14] MEDS ORDERED: DIPHENHYDRAMINE 25MG CAPSULE PO PRN (07:45)
[2019-10-14] MEDS ORDERED: ONDANSETRON HCL 4MG/2ML INJ IV PRN (07:45)
[2019-10-14] MEDS ORDERED: GUAIFENESIN 200MG/10ML SUGAR FREE UDC PO PRN (07:45)
[2019-10-14] MEDS ORDERED: LIDOCAINE HCL 1% 20ML VIAL (Pyxis) INJ ONE (08:12)
[2019-10-14] MEDS ORDERED: SODIUM CHLORIDE 0.9% 500 ML IV ONE ×2 (08:15→09:15)
[2019-10-14] MEDS ORDERED: CARISOPRODOL 350 MG TABLET PO PRN (09:00)
[2019-10-14] MEDS: SODIUM CHLORIDE 0.45% 1,000 ML IV SCH ×2 (09:23→19:04)
[2019-10-14] MEDS: FUROSEMIDE 40MG TABLET PO SCH (09:44)
[2019-10-14] MEDS: METHADONE HCL 10MG TABLET PO SCH (09:45)
[2019-10-14] MEDS: FAMOTIDINE 20MG TABLET PO SCH ×2 (09:45→21:21)
[2019-10-14] MEDS: PIPERACILLIN/TAZOBACTAM 3.375 G in DEXT 5% WATER 100 ML IV SCH ×3 (11:00→22:59)
[2019-10-14 11:17] LABS: BG BASE EXCESS 4.3 mmol/L (-2.0-2.0); BG CARBOXYHEMOGLOBIN 0.3 % (0.5-1.5); BG DEOXYHEMOGLOBIN 8.8 % (0.0-5.0); BG FRACTION INSPIRED OXYGEN 100; BG HCO3 ACT 29.4 mmol/L (22.0-26.0); BG METHEMOGLOBIN 0.4 % (0.0-1.5); BG OXYGEN SATURATION 91.1 % (92.0-98.5); BG OXYHEMOGLOBIN 90.5 % (94.0-97.0); BG PCO2 45.9 mmHg (35.0-45.0); BG PH 7.425 (7.350-7.450); BG SAMPLE SITE RIGHT BRACHIAL; BG TOTAL HEMOGLOBIN 14.2 g/dL (12.0-18.0); BG VENT MODE MASK - NRB
[2019-10-14] MEDS: INSULIN LISPRO 100 UNITS/ML SUBCUT SCH ×3 (12:00→21:00)
[2019-10-14] MEDS: BLOOD SUGAR DIAGNOSTIC STRIP TEST SCH ×3 (12:02→21:22)
[2019-10-14] MEDS: IPRATROPIUM/ALBUTEROL 0.5-3(2.5)MG/3ML NEB HHN SCH ×3 (12:02→23:56)
[2019-10-14] MEDS: HYDROCODONE/ACETAMINOPHEN 10/325MG TABLET PO PRN (12:20)
[2019-10-14 17:31] LABS: CREATINE KINASE MB FRACTION 3.4 ng/mL (0.5-3.6)
[2019-10-14] MEDS: DOCUSATE SODIUM 100MG CAPSULE PO SCH (17:37)
[2019-10-14] MEDS: INSULIN GLARGINE UD 100 UNITS/ML SYR SUBCUT SCH (21:22)
[2019-10-15] VITALS (79 sets, daily range): BP systolic 61–123; BP diastolic 28–83
[2019-10-15] MEDS: IPRATROPIUM/ALBUTEROL 0.5-3(2.5)MG/3ML NEB HHN SCH ×5 (04:25→19:48)
[2019-10-15 05:00] LABS: HEMATOCRIT. 38.3 % (42.0-52.0); HEMOGLOBIN. 12.6 g/dL (14.0-18.0); MEAN CORPUSCULAR HEMOGLOBIN 32.1 pg (28.0-32.0); MEAN CORPUSCULAR VOLUME 97.2 fL (80.0-94.0); RED BLOOD CELL COUNT 3.94 mill/uL (4.7-6.1); RED CELL DISTRIBUTION WIDTH 12.3 % (11.6-14.6)
[2019-10-15 05:18] LABS: CHLORIDE 96 mEq/L (98-107)
[2019-10-15] MEDS: PIPERACILLIN/TAZOBACTAM 3.375 G in DEXT 5% WATER 100 ML IV SCH ×4 (06:08→22:00)
[2019-10-15] MEDS: SODIUM CHLORIDE 0.45% 1,000 ML IV SCH ×2 (06:08→13:41)
[2019-10-15] MEDS: BLOOD SUGAR DIAGNOSTIC STRIP TEST SCH ×4 (06:36→21:53)
[2019-10-15] MEDS: INSULIN LISPRO 100 UNITS/ML SUBCUT SCH ×4 (06:36→21:00)
[2019-10-15 08:28] LABS: MEAN PLATELET VOLUME 9.6 fl (7.4-10.4); PLATELET ESTIMATE SLIGHTLY DECREASED
[2019-10-15 08:29] LABS: PLATELET 127 x1000/uL (130-400)
[2019-10-15] MEDS: DOCUSATE SODIUM 100MG CAPSULE PO SCH ×2 (08:51→17:10)
[2019-10-15] MEDS: FUROSEMIDE 40MG TABLET PO SCH (08:52)
[2019-10-15] MEDS: FAMOTIDINE 20MG TABLET PO SCH ×2 (08:52→21:06)
[2019-10-15] MEDS: METHADONE HCL 10MG TABLET PO SCH (08:53)
[2019-10-15] MEDS ORDERED: QUETIAPINE FUMARATE 50MG TABLET PO SCH (12:30)
[2019-10-15] MEDS: SOTALOL HCL 80MG TABLET PO SCH (21:00)
[2019-10-15] MEDS: HYDROCODONE/ACETAMINOPHEN 10/325MG TABLET PO PRN (21:05)
[2019-10-15] MEDS: QUETIAPINE FUMARATE 25MG TABLET PO SCH (21:06)
[2019-10-15] MEDS: INSULIN GLARGINE UD 100 UNITS/ML SYR SUBCUT SCH (21:54)
[2019-10-16] VITALS (50 sets, daily range): BP systolic 62–144; BP diastolic 29–89
[2019-10-16] MEDS: IPRATROPIUM/ALBUTEROL 0.5-3(2.5)MG/3ML NEB HHN SCH ×6 (00:36→21:42)
[2019-10-16] MEDS: SODIUM CHLORIDE 0.45% 1,000 ML IV SCH ×3 (01:00→22:25)
[2019-10-16] MEDS ORDERED: GENTAMICIN 80MG PREMIX 100 ML IV SCH (04:00)
[2019-10-16] MEDS: PIPERACILLIN/TAZOBACTAM 3.375 G in DEXT 5% WATER 100 ML IV SCH ×4 (05:00→22:26)
[2019-10-16] MEDS: BLOOD SUGAR DIAGNOSTIC STRIP TEST SCH ×4 (06:27→21:42)
[2019-10-16] MEDS: INSULIN LISPRO 100 UNITS/ML SUBCUT SCH ×4 (06:39→21:00)
[2019-10-16] MEDS ORDERED: NOREPINEPHRINE 4 MG in DEXT 5% WATER 246 ML IV PRN (08:30)
[2019-10-16] MEDS: QUETIAPINE FUMARATE 25MG TABLET PO SCH ×2 (09:06→20:57)
[2019-10-16] MEDS: FAMOTIDINE 20MG TABLET PO SCH ×2 (09:07→20:57)
[2019-10-16] MEDS: DOCUSATE SODIUM 100MG CAPSULE PO SCH ×2 (09:07→17:10)
[2019-10-16] MEDS: SOTALOL HCL 80MG TABLET PO SCH ×2 (09:51→20:57)
[2019-10-16 11:04] LABS: HEMATOCRIT. 34.8 % (42.0-52.0); HEMOGLOBIN. 11.6 g/dL (14.0-18.0); MEAN CORPUSCULAR HEMOGLOBIN 32.3 pg (28.0-32.0); MEAN CORPUSCULAR VOLUME 96.7 fL (80.0-94.0); MEAN PLATELET VOLUME 9.3 fl (7.4-10.4); PLATELET 96 x1000/uL (130-400); RED CELL DISTRIBUTION WIDTH 12.7 % (11.6-14.6)
[2019-10-16] MEDS: METHADONE HCL 10MG TABLET PO SCH (11:32)
[2019-10-16 11:40] LABS: CHLORIDE 100 mEq/L (98-107)
[2019-10-16] MEDS: HYDROCODONE/ACETAMINOPHEN 10/325MG TABLET PO PRN (15:08)
[2019-10-16] MEDS: ACETYLCYSTEINE 100MG/ML 10% VIAL 4ML INH SCH (15:59)
[2019-10-16] MEDS: ACETAMINOPHEN 650MG/20.3ML UDC PO PRN ×2 (17:11→22:26)
[2019-10-16 19:05] LABS: PLATELET ESTIMATE DECREASED
[2019-10-16] MEDS: GENTAMICIN SULFATE 240 MG in SODIUM CHLORIDE 0.9% 100 ML IV SCH (20:55)
[2019-10-16] MEDS: INSULIN GLARGINE UD 100 UNITS/ML SYR SUBCUT SCH (21:43)
[2019-10-17] VITALS (35 sets, daily range): BP systolic 76–150; BP diastolic 37–69
[2019-10-17] MEDS: ACETYLCYSTEINE 100MG/ML 10% VIAL 4ML INH SCH ×4 (00:30→23:58)
[2019-10-17] MEDS: IPRATROPIUM/ALBUTEROL 0.5-3(2.5)MG/3ML NEB HHN SCH ×7 (00:30→23:58)
[2019-10-17] MEDS: PIPERACILLIN/TAZOBACTAM 3.375 G in DEXT 5% WATER 100 ML IV SCH ×4 (04:08→23:30)
[2019-10-17 05:22] LABS: CHLORIDE 104 mEq/L (98-107)
[2019-10-17 05:26] LABS: BASOPHILS % 0.1 % (0.0-2.0); EOSINOPHILS % 1.4 % (0.0-5.0); HEMATOCRIT. 35.4 % (42.0-52.0); HEMOGLOBIN. 11.9 g/dL (14.0-18.0); LYMPHOCYTES % 10.3 % (20.0-50.0); MEAN CORPUSCULAR HEMOGLOBIN 32.5 pg (28.0-32.0); MEAN CORPUSCULAR VOLUME 96.8 fL (80.0-94.0); MEAN PLATELET VOLUME 9.4 fl (7.4-10.4); MONOCYTES % 9.9 % (2.0-8.0); NEUTROPHILS % 78.3 % (40.0-76.0); PLATELET 96 x1000/uL (130-400); RED BLOOD CELL COUNT 3.65 mill/uL (4.7-6.1); RED CELL DISTRIBUTION WIDTH 12.4 % (11.6-14.6)
[2019-10-17] MEDS: BLOOD SUGAR DIAGNOSTIC STRIP TEST SCH ×4 (06:06→21:06)
[2019-10-17] MEDS: INSULIN LISPRO 100 UNITS/ML SUBCUT SCH ×4 (06:07→21:06)
[2019-10-17] MEDS: DOCUSATE SODIUM 100MG CAPSULE PO SCH ×2 (08:33→18:31)
[2019-10-17] MEDS: SOTALOL HCL 80MG TABLET PO SCH (08:34)
[2019-10-17] MEDS: METHADONE HCL 10MG TABLET PO SCH (08:36)
[2019-10-17] MEDS: FAMOTIDINE 20MG TABLET PO SCH ×2 (08:36→20:14)
[2019-10-17] MEDS: QUETIAPINE FUMARATE 25MG TABLET PO SCH ×2 (08:36→20:14)
[2019-10-17] MEDS: THROAT LOZENGES-BENZOCAINE/MENTH/CETYLPYRD CL LOZENGES MM PRN ×5 (08:37→20:14)
[2019-10-17] MEDS ORDERED: MAGNESIUM 1 G PREMIX 100 ML IV NR (10:50)
[2019-10-17] MEDS: SODIUM CHLORIDE 0.45% 1,000 ML IV SCH (11:37)
[2019-10-17] MEDS: FUROSEMIDE 40MG/4ML VIAL IVP SCH (14:28)
[2019-10-17] MEDS: HYDROCODONE/ACETAMINOPHEN 10/325MG TABLET PO PRN ×2 (14:40→20:14)
[2019-10-17] MEDS: GENTAMICIN SULFATE 240 MG in SODIUM CHLORIDE 0.9% 100 ML IV SCH (21:04)
[2019-10-17] MEDS: INSULIN GLARGINE UD 100 UNITS/ML SYR SUBCUT SCH (21:05)
[2019-10-18] VITALS (18 sets, daily range): BP systolic 98–127; BP diastolic 25–85
[2019-10-18] MEDS: THROAT LOZENGES-BENZOCAINE/MENTH/CETYLPYRD CL LOZENGES MM PRN ×4 (01:06→20:28)
[2019-10-18] MEDS: IPRATROPIUM/ALBUTEROL 0.5-3(2.5)MG/3ML NEB HHN SCH ×5 (03:55→20:34)
[2019-10-18] MEDS: HYDROCODONE/ACETAMINOPHEN 10/325MG TABLET PO PRN ×3 (04:18→20:28)
[2019-10-18] MEDS: PIPERACILLIN/TAZOBACTAM 3.375 G in DEXT 5% WATER 100 ML IV SCH ×2 (05:06→12:00)
[2019-10-18 05:55] LABS: CHLORIDE 99 mEq/L (98-107)
[2019-10-18 06:03] LABS: GENTAMICIN RANDOM 4.1 ug/mL
[2019-10-18] MEDS: INSULIN LISPRO 100 UNITS/ML SUBCUT SCH ×4 (07:00→21:28)
[2019-10-18] MEDS: METHADONE HCL 10MG TABLET PO SCH (08:38)
[2019-10-18] MEDS: FUROSEMIDE 40MG/4ML VIAL IVP SCH ×2 (08:39→17:54)
[2019-10-18] MEDS: FAMOTIDINE 20MG TABLET PO SCH ×2 (08:39→21:29)
[2019-10-18] MEDS: DOCUSATE SODIUM 100MG CAPSULE PO SCH ×2 (08:39→17:00)
[2019-10-18] MEDS: ACETYLCYSTEINE 100MG/ML 10% VIAL 4ML INH SCH ×2 (09:01→16:36)
[2019-10-18 09:47] LABS: BASOPHILS % 0.2 % (0.0-2.0); EOSINOPHILS % 1.4 % (0.0-5.0); HEMATOCRIT. 38.4 % (42.0-52.0); MEAN CORPUSCULAR HEMOGLOBIN 32.5 pg (28.0-32.0); MEAN CORPUSCULAR VOLUME 96.2 fL (80.0-94.0); MEAN PLATELET VOLUME 8.9 fl (7.4-10.4); MONOCYTES % 10.7 % (2.0-8.0); NEUTROPHILS % 78.7 % (40.0-76.0); PLATELET 132 x1000/uL (130-400); RED BLOOD CELL COUNT 3.99 mill/uL (4.7-6.1); RED CELL DISTRIBUTION WIDTH 12.1 % (11.6-14.6)
[2019-10-18] MEDS: BLOOD SUGAR DIAGNOSTIC STRIP TEST SCH ×3 (11:30→20:49)
[2019-10-18] MEDS ORDERED: MAGNESIUM 2 G PREMIX 50 ML IV NR (12:00)
[2019-10-18] MEDS: MEROPENEM 1,000 MG in SODIUM CHLORIDE 0.9% 100 ML IV SCH ×2 (16:50→23:51)
[2019-10-18] MEDS: INSULIN GLARGINE UD 100 UNITS/ML SYR SUBCUT SCH (21:28)
[2019-10-18] MEDS: QUETIAPINE FUMARATE 25MG TABLET PO SCH (21:29)
[2019-10-19] VITALS (12 sets, daily range): BP systolic 94–156; BP diastolic 38–90
[2019-10-19] MEDS: IPRATROPIUM/ALBUTEROL 0.5-3(2.5)MG/3ML NEB HHN SCH ×6 (00:16→21:02)
[2019-10-19] MEDS: ACETYLCYSTEINE 100MG/ML 10% VIAL 4ML INH SCH ×3 (00:16→15:55)
[2019-10-19] MEDS: HYDROCODONE/ACETAMINOPHEN 10/325MG TABLET PO PRN ×2 (03:25→20:31)
[2019-10-19] MEDS: THROAT LOZENGES-BENZOCAINE/MENTH/CETYLPYRD CL LOZENGES MM PRN ×3 (05:11→14:06)
[2019-10-19] MEDS: BLOOD SUGAR DIAGNOSTIC STRIP TEST SCH ×4 (06:43→20:24)
[2019-10-19] MEDS: MEROPENEM 1,000 MG in SODIUM CHLORIDE 0.9% 100 ML IV SCH ×3 (06:51→21:31)
[2019-10-19] MEDS: INSULIN LISPRO 100 UNITS/ML SUBCUT SCH ×4 (07:11→20:25)
[2019-10-19] MEDS: FUROSEMIDE 40MG/4ML VIAL IVP SCH ×2 (07:12→17:31)
[2019-10-19] MEDS: METHADONE HCL 10MG TABLET PO SCH (08:30)
[2019-10-19] MEDS: FAMOTIDINE 20MG TABLET PO SCH ×2 (08:30→20:24)
[2019-10-19] MEDS: ACETAMINOPHEN 650MG/20.3ML UDC PO PRN ×2 (08:30→14:53)
[2019-10-19 08:45] LABS: BASOPHILS % 0.5 % (0.0-2.0); HEMATOCRIT. 38.6 % (42.0-52.0); HEMOGLOBIN. 13.3 g/dL (14.0-18.0); MEAN CORPUSCULAR HEMOGLOBIN 32.7 pg (28.0-32.0); MEAN CORPUSCULAR VOLUME 94.9 fL (80.0-94.0); NEUTROPHILS % 76.5 % (40.0-76.0); RED BLOOD CELL COUNT 4.07 mill/uL (4.7-6.1); RED CELL DISTRIBUTION WIDTH 12.3 % (11.6-14.6)
[2019-10-19 08:58] LABS: CHLORIDE 96 mEq/L (98-107)
[2019-10-19] MEDS: DOCUSATE SODIUM 100MG CAPSULE PO SCH ×2 (09:00→17:31)
[2019-10-19] MEDS: QUETIAPINE FUMARATE 25MG TABLET PO SCH ×2 (09:00→20:24)
[2019-10-19 09:45] LABS: MEAN PLATELET VOLUME 9.1 fl (7.4-10.4); PLATELET 138 x1000/uL (130-400)
[2019-10-19 13:00] LABS: BG BASE EXCESS 8.2 mmol/L (-2.0-2.0); BG CARBOXYHEMOGLOBIN 0.4 % (0.5-1.5); BG DEOXYHEMOGLOBIN 5.7 % (0.0-5.0); BG FRACTION INSPIRED OXYGEN 50; BG HCO3 ACT 33.8 mmol/L (22.0-26.0); BG METHEMOGLOBIN 0.2 % (0.0-1.5); BG OXYGEN SATURATION 94.3 % (92.0-98.5); BG OXYHEMOGLOBIN 93.7 % (94.0-97.0); BG PCO2 51.1 mmHg (35.0-45.0); BG PH 7.438 (7.350-7.450); BG PO2 72.7 mmHg (75.0-100.0); BG SAMPLE SITE RIGHT RADIAL; BG TOTAL HEMOGLOBIN 12.9 g/dL (12.0-18.0); BG VENT MODE VAPOTHERM
[2019-10-19] MEDS: DILTIAZEM HCL 60MG TABLET PO SCH ×2 (14:17→21:34)
[2019-10-19] MEDS: LACTULOSE 20G/30ML UDC PO PRN (20:51)
[2019-10-19 21:28] LABS: BG BASE EXCESS 8.6 mmol/L (-2.0-2.0); BG CARBOXYHEMOGLOBIN 0.8 % (0.5-1.5); BG DEOXYHEMOGLOBIN 9.4 % (0.0-5.0); BG FRACTION INSPIRED OXYGEN 35; BG HCO3 ACT 33.4 mmol/L (22.0-26.0); BG METHEMOGLOBIN 0.1 % (0.0-1.5); BG OXYGEN SATURATION 90.5 % (92.0-98.5); BG OXYHEMOGLOBIN 89.7 % (94.0-97.0); BG PCO2 46.5 mmHg (35.0-45.0); BG PH 7.474 (7.350-7.450); BG PO2 57.8 mmHg (75.0-100.0); BG SAMPLE SITE RIGHT BRACHIAL; BG TOTAL HEMOGLOBIN 13.8 g/dL (12.0-18.0); BG VENT MODE VAPOTHERM
[2019-10-19] MEDS: INSULIN GLARGINE UD 100 UNITS/ML SYR SUBCUT SCH (21:32)
[2019-10-20] VITALS (12 sets, daily range): BP systolic 84–115; BP diastolic 43–91
[2019-10-20] MEDS: IPRATROPIUM/ALBUTEROL 0.5-3(2.5)MG/3ML NEB HHN SCH ×6 (00:58→21:42)
[2019-10-20] MEDS: ACETYLCYSTEINE 100MG/ML 10% VIAL 4ML INH SCH ×2 (00:59→17:25)
[2019-10-20] MEDS: ACETAMINOPHEN 650MG/20.3ML UDC PO PRN ×2 (01:28→20:16)
[2019-10-20] MEDS: HYDROCODONE/ACETAMINOPHEN 10/325MG TABLET PO PRN ×2 (03:25→10:48)
[2019-10-20] MEDS: DILTIAZEM HCL 60MG TABLET PO SCH ×2 (06:00→08:00)
[2019-10-20] MEDS: BLOOD SUGAR DIAGNOSTIC STRIP TEST SCH ×4 (06:22→20:17)
[2019-10-20] MEDS: MEROPENEM 1,000 MG in SODIUM CHLORIDE 0.9% 100 ML IV SCH ×3 (06:22→21:52)
[2019-10-20] MEDS: THROAT LOZENGES-BENZOCAINE/MENTH/CETYLPYRD CL LOZENGES MM PRN ×3 (06:29→20:17)
[2019-10-20] MEDS: INSULIN LISPRO 100 UNITS/ML SUBCUT SCH ×4 (07:20→20:31)
[2019-10-20 07:25] LABS: BASOPHILS % 0.3 % (0.0-2.0); EOSINOPHILS % 2.9 % (0.0-5.0); HEMATOCRIT. 34.1 % (42.0-52.0); HEMOGLOBIN. 11.6 g/dL (14.0-18.0); LYMPHOCYTES % 20.9 % (20.0-50.0); MEAN CORPUSCULAR HEMOGLOBIN 32.5 pg (28.0-32.0); MEAN CORPUSCULAR VOLUME 95.6 fL (80.0-94.0); MEAN PLATELET VOLUME 8.7 fl (7.4-10.4); MONOCYTES % 9.8 % (2.0-8.0); NEUTROPHILS % 66.1 % (40.0-76.0); PLATELET 147 x1000/uL (130-400); RED BLOOD CELL COUNT 3.57 mill/uL (4.7-6.1)
[2019-10-20 07:53] LABS: CHLORIDE 97 mEq/L (98-107)
[2019-10-20] MEDS: FAMOTIDINE 20MG TABLET PO SCH ×2 (07:59→20:16)
[2019-10-20] MEDS: QUETIAPINE FUMARATE 25MG TABLET PO SCH ×2 (08:00→20:16)
[2019-10-20] MEDS: DOCUSATE SODIUM 100MG CAPSULE PO SCH ×2 (08:00→17:16)
[2019-10-20] MEDS: FUROSEMIDE 40MG/4ML VIAL IVP SCH ×3 (10:48→17:16)
[2019-10-20] MEDS: DILTIAZEM HCL 30MG TABLET PO SCH ×3 (10:55→17:21)
[2019-10-20] MEDS ORDERED: METHADONE HCL 10MG TABLET PO SCH (12:56)
[2019-10-20] MEDS: METHADONE HCL 10MG TABLET PO SCH (13:14)
[2019-10-20] MEDS: INSULIN GLARGINE UD 100 UNITS/ML SYR SUBCUT SCH (23:02)
[2019-10-21] VITALS (14 sets, daily range): BP systolic 79–108; BP diastolic 47–77
[2019-10-21] MEDS: HYDROCODONE/ACETAMINOPHEN 10/325MG TABLET PO PRN ×4 (00:54→20:01)
[2019-10-21] MEDS: LACTULOSE 20G/30ML UDC PO PRN (00:54)
[2019-10-21] MEDS: ACETYLCYSTEINE 100MG/ML 10% VIAL 4ML INH SCH ×2 (01:13→07:46)
[2019-10-21] MEDS: IPRATROPIUM/ALBUTEROL 0.5-3(2.5)MG/3ML NEB HHN SCH ×6 (01:14→21:27)
[2019-10-21] MEDS: ACETAMINOPHEN 650MG/20.3ML UDC PO PRN (04:22)
[2019-10-21] MEDS: MEROPENEM 1,000 MG in SODIUM CHLORIDE 0.9% 100 ML IV SCH ×3 (05:57→22:18)
[2019-10-21] MEDS: BLOOD SUGAR DIAGNOSTIC STRIP TEST SCH ×4 (05:58→21:07)
[2019-10-21] MEDS: DILTIAZEM HCL 30MG TABLET PO SCH ×4 (06:00→18:00)
[2019-10-21] MEDS: INSULIN LISPRO 100 UNITS/ML SUBCUT SCH ×4 (07:20→21:00)
[2019-10-21] MEDS: FAMOTIDINE 20MG TABLET PO SCH ×2 (08:02→21:07)
[2019-10-21] MEDS: DOCUSATE SODIUM 100MG CAPSULE PO SCH ×2 (09:00→17:00)
[2019-10-21] MEDS: QUETIAPINE FUMARATE 25MG TABLET PO SCH ×2 (09:24→21:07)
[2019-10-21] MEDS: METHADONE HCL 10MG TABLET PO SCH (09:33)
[2019-10-21] MEDS: FUROSEMIDE 40MG/4ML VIAL IVP SCH ×2 (10:48→18:38)
[2019-10-21] MEDS: INSULIN GLARGINE UD 100 UNITS/ML SYR SUBCUT SCH (21:08)
[2019-10-22] VITALS (10 sets, daily range): BP systolic 88–127; BP diastolic 53–89
[2019-10-22] MEDS: IPRATROPIUM/ALBUTEROL 0.5-3(2.5)MG/3ML NEB HHN SCH ×6 (01:20→20:25)
[2019-10-22] MEDS: HYDROCODONE/ACETAMINOPHEN 10/325MG TABLET PO PRN ×3 (05:45→18:16)
[2019-10-22] MEDS: MEROPENEM 1,000 MG in SODIUM CHLORIDE 0.9% 100 ML IV SCH ×3 (05:46→21:27)
[2019-10-22] MEDS: DILTIAZEM HCL 30MG TABLET PO SCH ×2 (06:29)
[2019-10-22] MEDS: BLOOD SUGAR DIAGNOSTIC STRIP TEST SCH ×4 (06:55→21:01)
[2019-10-22 07:14] LABS: BASOPHILS % 0.7 % (0.0-2.0); EOSINOPHILS % 2.1 % (0.0-5.0); HEMATOCRIT. 33.2 % (42.0-52.0); HEMOGLOBIN. 11.3 g/dL (14.0-18.0); LYMPHOCYTES % 20.1 % (20.0-50.0); MEAN CORPUSCULAR HEMOGLOBIN 32.5 pg (28.0-32.0); MEAN CORPUSCULAR VOLUME 95.7 fL (80.0-94.0); MEAN PLATELET VOLUME 8.3 fl (7.4-10.4); MONOCYTES % 7.6 % (2.0-8.0); NEUTROPHILS % 69.5 % (40.0-76.0); PLATELET 167 x1000/uL (130-400); RED BLOOD CELL COUNT 3.47 mill/uL (4.7-6.1); RED CELL DISTRIBUTION WIDTH 11.9 % (11.6-14.6)
[2019-10-22] MEDS: INSULIN LISPRO 100 UNITS/ML SUBCUT SCH ×4 (07:20→20:58)
[2019-10-22] MEDS: FAMOTIDINE 20MG TABLET PO SCH ×2 (08:12→21:01)
[2019-10-22] MEDS: QUETIAPINE FUMARATE 25MG TABLET PO SCH ×2 (08:12→21:01)
[2019-10-22] MEDS: DOCUSATE SODIUM 100MG CAPSULE PO SCH ×2 (08:12→18:16)
[2019-10-22] MEDS: METHADONE HCL 10MG TABLET PO SCH (08:13)
[2019-10-22 08:20] LABS: CHLORIDE 99 mEq/L (98-107)
[2019-10-22 10:07] LABS: BG BASE EXCESS 9.3 mmol/L (-2.0-2.0); BG CARBOXYHEMOGLOBIN 0.2 % (0.5-1.5); BG DEOXYHEMOGLOBIN 6.8 % (0.0-5.0); BG FRACTION INSPIRED OXYGEN 40; BG METHEMOGLOBIN 0.1 % (0.0-1.5); BG OXYGEN SATURATION 93.2 % (92.0-98.5); BG OXYHEMOGLOBIN 92.9 % (94.0-97.0); BG PCO2 52.7 mmHg (35.0-45.0); BG PO2 67.9 mmHg (75.0-100.0); BG SAMPLE SITE RIGHT RADIAL; BG TOTAL HEMOGLOBIN 12.2 g/dL (12.0-18.0); BG VENT MODE VAPOTHERM
[2019-10-22] MEDS: DILTIAZEM HCL 60MG TABLET PO SCH ×2 (12:35→18:00)
[2019-10-22] MEDS: THROAT LOZENGES-BENZOCAINE/MENTH/CETYLPYRD CL LOZENGES MM PRN ×2 (12:37→17:51)
[2019-10-22] MEDS: INSULIN GLARGINE UD 100 UNITS/ML SYR SUBCUT SCH (20:59)
[2019-10-23] VITALS (8 sets, daily range): BP systolic 90–119; BP diastolic 23–88
[2019-10-23] MEDS: IPRATROPIUM/ALBUTEROL 0.5-3(2.5)MG/3ML NEB HHN SCH ×3 (00:43→12:15)
[2019-10-23] MEDS: HYDROCODONE/ACETAMINOPHEN 10/325MG TABLET PO PRN ×3 (01:38→20:55)
[2019-10-23] MEDS: BLOOD SUGAR DIAGNOSTIC STRIP TEST SCH ×4 (07:00→21:00)
[2019-10-23] MEDS: DILTIAZEM HCL 60MG TABLET PO SCH ×3 (07:00→11:20)
[2019-10-23] MEDS: QUETIAPINE FUMARATE 25MG TABLET PO SCH ×2 (08:14→20:59)
[2019-10-23] MEDS: FAMOTIDINE 20MG TABLET PO SCH ×2 (08:17→21:00)
[2019-10-23] MEDS: FUROSEMIDE 40MG/4ML VIAL IVP SCH (08:17)
[2019-10-23] MEDS: METHADONE HCL 10MG TABLET PO SCH (08:17)
[2019-10-23] MEDS: DOCUSATE SODIUM 100MG CAPSULE PO SCH ×2 (08:17→17:04)
[2019-10-23] MEDS: MEROPENEM 1,000 MG in SODIUM CHLORIDE 0.9% 100 ML IV SCH ×3 (08:18→20:59)
[2019-10-23] MEDS: INSULIN LISPRO 100 UNITS/ML SUBCUT SCH ×4 (09:03→21:00)
[2019-10-23 09:34] LABS: BG BASE EXCESS 6.6 mmol/L (-2.0-2.0); BG CARBOXYHEMOGLOBIN 0.2 % (0.5-1.5); BG DEOXYHEMOGLOBIN 5.4 % (0.0-5.0); BG FRACTION INSPIRED OXYGEN 36; BG HCO3 ACT 31.8 mmol/L (22.0-26.0); BG METHEMOGLOBIN 0.3 % (0.0-1.5); BG OXYGEN SATURATION 94.6 % (92.0-98.5); BG OXYHEMOGLOBIN 94.1 % (94.0-97.0); BG PCO2 48.3 mmHg (35.0-45.0); BG PH 7.436 (7.350-7.450); BG PO2 72.5 mmHg (75.0-100.0); BG SAMPLE SITE RIGHT RADIAL; BG TOTAL HEMOGLOBIN 11.9 g/dL (12.0-18.0); BG VENT MODE NASAL CANNULA
[2019-10-23] MEDS: THROAT LOZENGES-BENZOCAINE/MENTH/CETYLPYRD CL LOZENGES MM PRN ×2 (13:19→17:50)
[2019-10-23] MEDS: DILTIAZEM HCL 90MG TABLET PO SCH (17:08)
[2019-10-24] VITALS (10 sets, daily range): BP systolic 91–118; BP diastolic 57–74
[2019-10-24] MEDS: DILTIAZEM HCL 90MG TABLET PO SCH ×4 (00:20→18:23)
[2019-10-24] MEDS: INSULIN GLARGINE UD 100 UNITS/ML SYR SUBCUT SCH ×2 (00:23→21:42)
[2019-10-24 06:03] LABS: BASOPHILS % 0.8 % (0.0-2.0); EOSINOPHILS % 4.4 % (0.0-5.0); HEMOGLOBIN. 11.1 g/dL (14.0-18.0); LYMPHOCYTES % 17.5 % (20.0-50.0); MEAN CORPUSCULAR HEMOGLOBIN 32.6 pg (28.0-32.0); MEAN CORPUSCULAR VOLUME 96.6 fL (80.0-94.0); MEAN PLATELET VOLUME 8.2 fl (7.4-10.4); MONOCYTES % 8.7 % (2.0-8.0); NEUTROPHILS % 68.6 % (40.0-76.0); PLATELET 240 x1000/uL (130-400); RED BLOOD CELL COUNT 3.41 mill/uL (4.7-6.1); RED CELL DISTRIBUTION WIDTH 12.2 % (11.6-14.6)
[2019-10-24] MEDS: BLOOD SUGAR DIAGNOSTIC STRIP TEST SCH ×4 (06:55→21:16)
[2019-10-24] MEDS: MEROPENEM 1,000 MG in SODIUM CHLORIDE 0.9% 100 ML IV SCH ×3 (06:55→21:37)
[2019-10-24 07:01] LABS: CHLORIDE 100 mEq/L (98-107)
[2019-10-24] MEDS: INSULIN LISPRO 100 UNITS/ML SUBCUT SCH ×4 (07:20→21:00)
[2019-10-24] MEDS: DOCUSATE SODIUM 100MG CAPSULE PO SCH ×2 (08:36→18:23)
[2019-10-24] MEDS: FUROSEMIDE 40MG/4ML VIAL IVP SCH (08:36)
[2019-10-24] MEDS: QUETIAPINE FUMARATE 25MG TABLET PO SCH ×2 (08:37→21:21)
[2019-10-24] MEDS: METHADONE HCL 10MG TABLET PO SCH (08:38)
[2019-10-24] MEDS: THROAT LOZENGES-BENZOCAINE/MENTH/CETYLPYRD CL LOZENGES MM PRN ×2 (09:01→21:21)
[2019-10-24] MEDS: FAMOTIDINE 20MG TABLET PO SCH ×2 (14:22→21:20)
[2019-10-24] MEDS: HYDROCODONE/ACETAMINOPHEN 10/325MG TABLET PO PRN (18:24)
[2019-10-25] VITALS (12 sets, daily range): BP systolic 90–123; BP diastolic 44–70
[2019-10-25] MEDS: DILTIAZEM HCL 90MG TABLET PO SCH ×2 (06:00)
[2019-10-25] MEDS: MEROPENEM 1,000 MG in SODIUM CHLORIDE 0.9% 100 ML IV SCH ×3 (06:27→22:24)
[2019-10-25] MEDS: BLOOD SUGAR DIAGNOSTIC STRIP TEST SCH ×4 (06:33→22:05)
[2019-10-25] MEDS: INSULIN LISPRO 100 UNITS/ML SUBCUT SCH ×4 (07:20→21:00)
[2019-10-25 07:36] LABS: BG BASE EXCESS 8.4 mmol/L (-2.0-2.0); BG CARBOXYHEMOGLOBIN 0.8 % (0.5-1.5); BG DEOXYHEMOGLOBIN 16.2 % (0.0-5.0); BG FRACTION INSPIRED OXYGEN 21; BG HCO3 ACT 33.8 mmol/L (22.0-26.0); BG METHEMOGLOBIN 0.3 % (0.0-1.5); BG OXYGEN SATURATION 83.6 % (92.0-98.5); BG OXYHEMOGLOBIN 82.7 % (94.0-97.0); BG PCO2 50.5 mmHg (35.0-45.0); BG PH 7.444 (7.350-7.450); BG PO2 46.4 mmHg (75.0-100.0); BG SAMPLE SITE RIGHT BRACHIAL; BG TOTAL HEMOGLOBIN 11.8 g/dL (12.0-18.0); BG VENT MODE ROOM AIR
[2019-10-25] MEDS: FUROSEMIDE 40MG/4ML VIAL IVP SCH (07:39)
[2019-10-25] MEDS: DOCUSATE SODIUM 100MG CAPSULE PO SCH ×2 (07:39→17:50)
[2019-10-25] MEDS: FAMOTIDINE 20MG TABLET PO SCH ×2 (07:39→21:00)
[2019-10-25] MEDS: METHADONE HCL 10MG TABLET PO SCH (07:40)
[2019-10-25] MEDS: ACETAMINOPHEN 650MG/20.3ML UDC PO PRN (07:50)
[2019-10-25] MEDS: DILTIAZEM HCL 60MG TABLET PO SCH ×2 (14:00→22:25)
[2019-10-25] MEDS: HYDROCODONE/APAP 7.5/325MG 1 TAB TABLET PO PRN (16:49)
[2019-10-25] MEDS: INSULIN GLARGINE UD 100 UNITS/ML SYR SUBCUT SCH (22:17)
[2019-10-25] MEDS: QUETIAPINE FUMARATE 25MG TABLET PO SCH (22:23)
[2019-10-25] MEDS: THROAT LOZENGES-BENZOCAINE/MENTH/CETYLPYRD CL LOZENGES MM PRN (22:26)
[2019-10-26] VITALS (9 sets, daily range): BP systolic 91–108; BP diastolic 54–75
[2019-10-26] MEDS: DILTIAZEM HCL 60MG TABLET PO SCH ×2 (06:00→14:00)
[2019-10-26] MEDS: BLOOD SUGAR DIAGNOSTIC STRIP TEST SCH ×2 (06:30→12:06)
[2019-10-26] MEDS: THROAT LOZENGES-BENZOCAINE/MENTH/CETYLPYRD CL LOZENGES MM PRN (06:45)
[2019-10-26] MEDS: INSULIN LISPRO 100 UNITS/ML SUBCUT SCH ×2 (07:20→12:06)
[2019-10-26] MEDS: DOCUSATE SODIUM 100MG CAPSULE PO SCH (08:11)
[2019-10-26] MEDS: METHADONE HCL 10MG TABLET PO SCH (08:12)
[2019-10-26] MEDS: FUROSEMIDE 40MG/4ML VIAL IVP SCH (08:12)
[2019-10-26] MEDS: FAMOTIDINE 20MG TABLET PO SCH (09:00)
[2019-10-26] MEDS: HYDROCODONE/APAP 7.5/325MG 1 TAB TABLET PO PRN (10:35)
[2019-10-26] MEDS ORDERED: FAMOTIDINE 40MG TABLET PO SCH (12:00)
[2019-10-26] MEDS ORDERED: APIXABAN 5 MG TABLET PO SCH (17:00)
== END 2019-10-26 16:40 | DRG 871 ==
LOC: MICUSO 03:14 → 3WST 10-18 12:34
PROVIDERS: ADMIT Internal Medicine; ATTEND Internal Medicine
PROC: 06HY33Z Insertion of Infusion Device into Lower Vein, Percutaneous Approach (ICD-10-PCS; principal; 2019-10-14)
DX: A41.50 Gram-negative sepsis, unspecified (principal); J18.9 Pneumonia, unspecified organism; G93.41 Metabolic encephalopathy; G82.50 Quadriplegia, unspecified; J96.21 Acute and chronic respiratory failure with hypoxia; I50.42 Chronic combined systolic (congestive) and diastolic (congestive) heart failure; J44.0 Chronic obstructive pulmonary disease with (acute) lower respiratory infection; J44.1 Chronic obstructive pulmonary disease with (acute) exacerbation; I48.19 Other persistent atrial fibrillation; I48.3 Typical atrial flutter; R18.8 Other ascites; E04.1 Nontoxic single thyroid nodule; B19.20 Unspecified viral hepatitis C without hepatic coma; D64.9 Anemia, unspecified; R16.1 Splenomegaly, not elsewhere classified; E11.9 Type 2 diabetes mellitus without complications; F11.10 Opioid abuse, uncomplicated; F17.210 Nicotine dependence, cigarettes, uncomplicated; G89.29 Other chronic pain; M47.816 Spondylosis without myelopathy or radiculopathy, lumbar region; F22 Delusional disorders; I11.0 Hypertensive heart disease with heart failure; R74.0 Nonspecific elevation of levels of transaminase and lactic acid dehydrogenase [LDH]; B96.20 Unspecified Escherichia coli [E. coli] as the cause of diseases classified elsewhere; I49.5 Sick sinus syndrome; R13.10 Dysphagia, unspecified; T38.0X5A Adverse effect of glucocorticoids and synthetic analogues, initial encounter; Y92.89 Other specified places as the place of occurrence of the external cause; Z83.3 Family history of diabetes mellitus; Z99.81 Dependence on supplemental oxygen; Z98.1 Arthrodesis status
CPT/HCPCS: 36415; 36600; 71045; 71275; 72141; 76604; 76700; 76937; 80048; 80076; 80170; 82375; 82550; 82553; 82805; 82962; 83735; 84484; 87070; 87077; 87186; 92610; 93005; 93970; 94667; 97110; 97116; 97162; 97164; 97166; 97530; J1580; J1815; J1940; J2185; J2543; J3475; J3490; J7040; J7050; J7060; J7608; J7620; L0172

== ENCOUNTER 2019-10-26 16:45 | Inpatient (IN) | payer MEDICAID, MEDICARE ==
[~2019-10-26] VITALS: Ht 182.9 cm; Wt 109.3 kg
[2019-10-26] MEDS ORDERED: LACTULOSE 20G/30ML UDC PO PRN (18:30)
[2019-10-26] MEDS ORDERED: ONDANSETRON HCL 4MG/2ML INJ IV PRN (18:30)
[2019-10-26] MEDS ORDERED: IPRATROPIUM/ALBUTEROL 0.5-3(2.5)MG/3ML NEB HHN PRN (18:30)
[2019-10-26] MEDS ORDERED: DEXTROSE 50% WATER 50ML SYRINGE IV PRN (18:30)
[2019-10-26] MEDS ORDERED: DIPHENHYDRAMINE 25MG CAPSULE PO PRN (18:30)
[2019-10-26] MEDS ORDERED: GUAIFENESIN 200MG/10ML SUGAR FREE UDC PO PRN (18:30)
[2019-10-26] MEDS ORDERED: MAGNESIUM/ALUMINUM HYDROXIDE/SIMETHICONE 30ML UDC PO PRN (18:30)
[2019-10-26 18:51] VITALS: BP 96/63
[2019-10-26 20:00] VITALS: BP 98/46
[2019-10-26] MEDS: DOCUSATE SODIUM 100MG CAPSULE PO SCH (20:04)
[2019-10-26] MEDS: QUETIAPINE FUMARATE 25MG TABLET PO SCH (20:05)
[2019-10-26] MEDS: HYDROCODONE/APAP 7.5/325MG 1 TAB TABLET PO PRN (20:07)
[2019-10-26] MEDS: INSULIN LISPRO 100 UNITS/ML SUBCUT SCH (21:00)
[2019-10-26] MEDS: FAMOTIDINE 20MG TABLET PO SCH (21:39)
[2019-10-26] MEDS: DILTIAZEM HCL 60MG TABLET PO SCH ×2 (21:40→21:45)
[2019-10-26] MEDS: INSULIN GLARGINE UD 100 UNITS/ML SYR SUBCUT SCH (21:41)
[2019-10-26] MEDS: BLOOD SUGAR DIAGNOSTIC STRIP TEST SCH (21:45)
[2019-10-27] MEDS: THROAT LOZENGES-BENZOCAINE/MENTH/CETYLPYRD CL LOZENGES MM PRN ×2 (02:45→15:11)
[2019-10-27 03:00] VITALS: BP 90/51
[2019-10-27] MEDS: DILTIAZEM HCL 60MG TABLET PO SCH ×3 (06:00→21:43)
[2019-10-27] MEDS: BLOOD SUGAR DIAGNOSTIC STRIP TEST SCH ×4 (06:35→21:42)
[2019-10-27 08:00] VITALS: BP 105/59
[2019-10-27 08:21] VITALS: BP 105/59
[2019-10-27] MEDS: METHADONE HCL 10MG TABLET PO SCH (08:36)
[2019-10-27] MEDS: FUROSEMIDE 40MG TABLET PO SCH (08:36)
[2019-10-27] MEDS: APIXABAN 5 MG TABLET PO SCH ×2 (08:36→16:15)
[2019-10-27] MEDS: FAMOTIDINE 20MG TABLET PO SCH ×2 (08:36→21:42)
[2019-10-27] MEDS: DOCUSATE SODIUM 100MG CAPSULE PO SCH ×2 (08:36→16:15)
[2019-10-27] MEDS: INSULIN LISPRO 100 UNITS/ML SUBCUT SCH ×4 (08:37→21:00)
[2019-10-27] MEDS: ACETAMINOPHEN 325MG TABLET PO PRN (16:30)
[2019-10-27 20:00] VITALS: BP 112/61
[2019-10-27] MEDS: QUETIAPINE FUMARATE 25MG TABLET PO SCH (21:42)
[2019-10-28] MEDS: INSULIN GLARGINE UD 100 UNITS/ML SYR SUBCUT SCH ×2 (00:14→22:19)
[2019-10-28] MEDS: BLOOD SUGAR DIAGNOSTIC STRIP TEST SCH ×4 (05:55→21:29)
[2019-10-28] MEDS: INSULIN LISPRO 100 UNITS/ML SUBCUT SCH ×4 (05:56→21:41)
[2019-10-28] MEDS: DILTIAZEM HCL 60MG TABLET PO SCH ×3 (05:57→21:28)
[2019-10-28 07:22] LABS: HEMATOCRIT. 32.6 % (42.0-52.0); HEMOGLOBIN. 10.8 g/dL (14.0-18.0); MEAN CORPUSCULAR VOLUME 96.3 fL (80.0-94.0); PLATELET 434 x1000/uL (130-400); RED BLOOD CELL COUNT 3.39 mill/uL (4.7-6.1)
[2019-10-28 07:28] LABS: CHLORIDE 102 mEq/L (98-107)
[2019-10-28 08:00] VITALS: BP 122/73
[2019-10-28] MEDS: DOCUSATE SODIUM 100MG CAPSULE PO SCH ×2 (08:57→18:00)
[2019-10-28] MEDS: APIXABAN 5 MG TABLET PO SCH ×2 (08:57→18:00)
[2019-10-28] MEDS: FUROSEMIDE 40MG TABLET PO SCH (08:57)
[2019-10-28] MEDS: FAMOTIDINE 20MG TABLET PO SCH ×2 (08:57→21:28)
[2019-10-28] MEDS: METHADONE HCL 10MG TABLET PO SCH (09:04)
[2019-10-28] MEDS: HYDROCODONE/APAP 7.5/325MG 1 TAB TABLET PO PRN ×2 (14:15→21:44)
[2019-10-28 15:27] LABS: PLATELET ESTIMATE NORMAL
[2019-10-28 20:00] VITALS: BP 125/66
[2019-10-28] MEDS: QUETIAPINE FUMARATE 25MG TABLET PO SCH (21:28)
[2019-10-29] MEDS: DILTIAZEM HCL 60MG TABLET PO SCH ×3 (05:43→21:59)
[2019-10-29] MEDS: BLOOD SUGAR DIAGNOSTIC STRIP TEST SCH ×4 (05:51→21:00)
[2019-10-29] MEDS: INSULIN LISPRO 100 UNITS/ML SUBCUT SCH ×4 (06:12→21:00)
[2019-10-29] MEDS: HYDROCODONE/APAP 7.5/325MG 1 TAB TABLET PO PRN ×2 (06:33→21:33)
[2019-10-29 06:45] LABS: CHLORIDE 100 mEq/L (98-107)
[2019-10-29 06:46] LABS: HEMATOCRIT. 31.6 % (42.0-52.0); HEMOGLOBIN. 10.7 g/dL (14.0-18.0); MEAN CORPUSCULAR HEMOGLOBIN 32.7 pg (28.0-32.0); MEAN CORPUSCULAR VOLUME 96.3 fL (80.0-94.0); MEAN PLATELET VOLUME 7.7 fl (7.4-10.4); PLATELET 430 x1000/uL (130-400); RED BLOOD CELL COUNT 3.28 mill/uL (4.7-6.1)
[2019-10-29 06:52] LABS: PHOSPHORUS 3.8 mg/dL (2.5-4.9)
[2019-10-29 06:53] LABS: LDL CHOLESTEROL 78 mg/dL (5-100)
[2019-10-29 06:54] LABS: HDL CHOLESTEROL 53 mg/dL (40-59); TOTAL IRON BINDING CAPACITY 329 ug/dL (250-450)
[2019-10-29 07:03] LABS: FOLIC ACID (FOLATE) SERUM 7.7 ng/mL (>5.38); PROSTRATE SPECIFIC AG TOTAL 1.05 ng/mL (0.0-4.0)
[2019-10-29 08:00] VITALS: BP 117/67
[2019-10-29] MEDS: FAMOTIDINE 20MG TABLET PO SCH ×2 (08:58→21:23)
[2019-10-29] MEDS: DOCUSATE SODIUM 100MG CAPSULE PO SCH ×2 (08:58→17:26)
[2019-10-29] MEDS: APIXABAN 5 MG TABLET PO SCH ×2 (08:58→21:23)
[2019-10-29] MEDS: FUROSEMIDE 40MG TABLET PO SCH (08:58)
[2019-10-29] MEDS: METHADONE HCL 10MG TABLET PO SCH (08:59)
[2019-10-29 10:15] LABS: BG BASE EXCESS 7.4 mmol/L (-2.0-2.0); BG CARBOXYHEMOGLOBIN 0.3 % (0.5-1.5); BG DEOXYHEMOGLOBIN 4.8 % (0.0-5.0); BG FRACTION INSPIRED OXYGEN 36; BG HCO3 ACT 33.4 mmol/L (22.0-26.0); BG METHEMOGLOBIN 0.3 % (0.0-1.5); BG OXYGEN SATURATION 95.2 % (92.0-98.5); BG OXYHEMOGLOBIN 94.6 % (94.0-97.0); BG PCO2 54.3 mmHg (35.0-45.0); BG PH 7.407 (7.350-7.450); BG SAMPLE SITE RIGHT RADIAL; BG TOTAL HEMOGLOBIN 11.5 g/dL (12.0-18.0); BG VENT MODE NASAL CANNULA
[2019-10-29 13:40] LABS: PLATELET ESTIMATE INCREASED
[2019-10-29] MEDS ORDERED: IOHEXOL-350 100 ML BOTTLE ONE (13:59)
[2019-10-29 20:02] VITALS: BP 121/62
[2019-10-29] MEDS: QUETIAPINE FUMARATE 25MG TABLET PO SCH (21:23)
[2019-10-29] MEDS: THROAT LOZENGES-BENZOCAINE/MENTH/CETYLPYRD CL LOZENGES MM PRN (21:36)
[2019-10-29] MEDS: MEROPENEM 1,000 MG in SODIUM CHLORIDE 0.9% 100 ML IV SCH (22:00)
[2019-10-29] MEDS: INSULIN GLARGINE UD 100 UNITS/ML SYR SUBCUT SCH (22:26)
[2019-10-30] MEDS: MEROPENEM 1,000 MG in SODIUM CHLORIDE 0.9% 100 ML IV SCH ×3 (05:08→21:29)
[2019-10-30] MEDS: DILTIAZEM HCL 60MG TABLET PO SCH ×3 (05:09→22:00)
[2019-10-30] MEDS: BLOOD SUGAR DIAGNOSTIC STRIP TEST SCH ×4 (06:20→21:28)
[2019-10-30] MEDS: APIXABAN 5 MG TABLET PO SCH ×2 (08:13→17:06)
[2019-10-30] MEDS: FUROSEMIDE 40MG TABLET PO SCH (08:13)
[2019-10-30] MEDS: FAMOTIDINE 20MG TABLET PO SCH ×2 (08:13→21:27)
[2019-10-30] MEDS: DOCUSATE SODIUM 100MG CAPSULE PO SCH ×2 (08:13→17:06)
[2019-10-30] MEDS: METHADONE HCL 10MG TABLET PO SCH (08:15)
[2019-10-30] MEDS: INSULIN LISPRO 100 UNITS/ML SUBCUT SCH ×4 (08:16→21:00)
[2019-10-30 08:18] VITALS: BP 105/60
[2019-10-30] MEDS ORDERED: BARIUM SULFATE 176 GM SUSP.RECON ONE (08:22)
[2019-10-30] MEDS: THROAT LOZENGES-BENZOCAINE/MENTH/CETYLPYRD CL LOZENGES MM PRN (11:03)
[2019-10-30 13:00] VITALS: BP 103/60
[2019-10-30] MEDS: HYDROCODONE/APAP 7.5/325MG 1 TAB TABLET PO PRN (17:18)
[2019-10-30 20:00] VITALS: BP 121/75
[2019-10-30] MEDS: QUETIAPINE FUMARATE 25MG TABLET PO SCH (21:27)
[2019-10-30] MEDS: INSULIN GLARGINE UD 100 UNITS/ML SYR SUBCUT SCH (21:32)
[2019-10-31] MEDS: HYDROCODONE/APAP 7.5/325MG 1 TAB TABLET PO PRN ×3 (03:54→16:36)
[2019-10-31] MEDS: DILTIAZEM HCL 60MG TABLET PO SCH ×3 (05:36→21:31)
[2019-10-31] MEDS: MEROPENEM 1,000 MG in SODIUM CHLORIDE 0.9% 100 ML IV SCH ×3 (05:36→21:32)
[2019-10-31 05:59] LABS: HEMATOCRIT. 33.8 % (42.0-52.0); HEMOGLOBIN. 11.4 g/dL (14.0-18.0); MEAN CORPUSCULAR HEMOGLOBIN 32.8 pg (28.0-32.0); MEAN PLATELET VOLUME 8.1 fl (7.4-10.4); PLATELET 363 x1000/uL (130-400); RED BLOOD CELL COUNT 3.48 mill/uL (4.7-6.1); RED CELL DISTRIBUTION WIDTH 12.2 % (11.6-14.6)
[2019-10-31 06:11] LABS: CHLORIDE 101 mEq/L (98-107)
[2019-10-31 06:22] LABS: T4 FREE 1.06 ng/dL (0.76-1.46)
[2019-10-31] MEDS: BLOOD SUGAR DIAGNOSTIC STRIP TEST SCH ×4 (06:47→21:32)
[2019-10-31 08:00] VITALS: BP 94/59
[2019-10-31] MEDS: FAMOTIDINE 20MG TABLET PO SCH ×2 (08:15→21:31)
[2019-10-31] MEDS: DOCUSATE SODIUM 100MG CAPSULE PO SCH ×2 (08:16→16:34)
[2019-10-31] MEDS: FOLIC ACID 1MG TABLET PO SCH (08:16)
[2019-10-31] MEDS: APIXABAN 5 MG TABLET PO SCH ×2 (08:16→16:35)
[2019-10-31] MEDS: FUROSEMIDE 40MG TABLET PO SCH (08:16)
[2019-10-31] MEDS: METHADONE HCL 10MG TABLET PO SCH (08:17)
[2019-10-31] MEDS: INSULIN LISPRO 100 UNITS/ML SUBCUT SCH ×4 (08:19→21:00)
[2019-10-31 19:00] VITALS: BP 115/66
[2019-10-31] MEDS: QUETIAPINE FUMARATE 25MG TABLET PO SCH (21:31)
[2019-10-31] MEDS: IPRATROPIUM/ALBUTEROL 0.5-3(2.5)MG/3ML NEB HHN SCH (21:48)
[2019-10-31] MEDS: INSULIN GLARGINE UD 100 UNITS/ML SYR SUBCUT SCH (22:00)
[2019-10-31] MEDS: ACETAMINOPHEN 325MG TABLET PO PRN (22:18)
[2019-10-31] MEDS ORDERED: HYDROCODONE/APAP 7.5/325MG 1 TAB TABLET PO PRN (22:45)
[2019-11-01] MEDS: IPRATROPIUM/ALBUTEROL 0.5-3(2.5)MG/3ML NEB HHN SCH ×4 (01:40→21:32)
[2019-11-01] MEDS: MEROPENEM 1,000 MG in SODIUM CHLORIDE 0.9% 100 ML IV SCH ×3 (05:06→21:08)
[2019-11-01] MEDS: DILTIAZEM HCL 60MG TABLET PO SCH ×3 (05:26→18:00)
[2019-11-01] MEDS: INSULIN LISPRO 100 UNITS/ML SUBCUT SCH ×4 (07:01→21:00)
[2019-11-01] MEDS: BLOOD SUGAR DIAGNOSTIC STRIP TEST SCH ×4 (07:01→21:08)
[2019-11-01 07:39] LABS: PLATELET ESTIMATE NORMAL
[2019-11-01 08:00] VITALS: BP_SYST 146; BP_SYST 95; BP_DIAS 56; BP_DIAS 71
[2019-11-01] MEDS: APIXABAN 5 MG TABLET PO SCH ×2 (08:55→16:21)
[2019-11-01] MEDS: FOLIC ACID 1MG TABLET PO SCH (08:55)
[2019-11-01] MEDS: FUROSEMIDE 40MG TABLET PO SCH (08:55)
[2019-11-01] MEDS: FAMOTIDINE 20MG TABLET PO SCH ×2 (08:55→21:08)
[2019-11-01] MEDS: DOCUSATE SODIUM 100MG CAPSULE PO SCH ×2 (08:55→16:21)
[2019-11-01] MEDS: METHADONE HCL 10MG TABLET PO SCH (09:05)
[2019-11-01] MEDS: CARISOPRODOL 350 MG TABLET PO PRN (14:01)
[2019-11-01 19:47] VITALS: BP 106/53
[2019-11-01] MEDS: QUETIAPINE FUMARATE 25MG TABLET PO SCH (21:08)
[2019-11-01] MEDS: THROAT LOZENGES-BENZOCAINE/MENTH/CETYLPYRD CL LOZENGES MM PRN (21:19)
[2019-11-01] MEDS: INSULIN GLARGINE UD 100 UNITS/ML SYR SUBCUT SCH (22:00)
[2019-11-02] MEDS: DILTIAZEM HCL 60MG TABLET PO SCH ×4 (00:20→17:00)
[2019-11-02] MEDS: IPRATROPIUM/ALBUTEROL 0.5-3(2.5)MG/3ML NEB HHN SCH ×4 (01:12→21:30)
[2019-11-02] MEDS: MEROPENEM 1,000 MG in SODIUM CHLORIDE 0.9% 100 ML IV SCH ×3 (06:05→20:56)
[2019-11-02] MEDS: BLOOD SUGAR DIAGNOSTIC STRIP TEST SCH ×4 (06:06→20:50)
[2019-11-02] MEDS: INSULIN LISPRO 100 UNITS/ML SUBCUT SCH ×4 (06:21→20:56)
[2019-11-02 08:08] VITALS: BP 85/43
[2019-11-02 08:30] VITALS: BP 114/66
[2019-11-02] MEDS: FAMOTIDINE 20MG TABLET PO SCH ×2 (08:45→20:50)
[2019-11-02] MEDS: DOCUSATE SODIUM 100MG CAPSULE PO SCH ×2 (08:45→16:57)
[2019-11-02] MEDS: FOLIC ACID 1MG TABLET PO SCH (08:45)
[2019-11-02] MEDS: FUROSEMIDE 40MG TABLET PO SCH (08:45)
[2019-11-02] MEDS: METHADONE HCL 10MG TABLET PO SCH (08:46)
[2019-11-02] MEDS: APIXABAN 5 MG TABLET PO SCH ×2 (08:46→16:57)
[2019-11-02] MEDS ORDERED: BARIUM SULFATE 176 GM SUSP.RECON ONE (09:16)
[2019-11-02] MEDS: THROAT LOZENGES-BENZOCAINE/MENTH/CETYLPYRD CL LOZENGES MM PRN (09:39)
[2019-11-02 20:01] VITALS: BP 98/45
[2019-11-02] MEDS: QUETIAPINE FUMARATE 25MG TABLET PO SCH (20:50)
[2019-11-02] MEDS: ACETAMINOPHEN 325MG TABLET PO PRN (20:56)
[2019-11-02] MEDS: INSULIN GLARGINE UD 100 UNITS/ML SYR SUBCUT SCH (21:59)
[2019-11-03] MEDS: IPRATROPIUM/ALBUTEROL 0.5-3(2.5)MG/3ML NEB HHN SCH ×5 (02:00→20:55)
[2019-11-03] MEDS: BLOOD SUGAR DIAGNOSTIC STRIP TEST SCH ×4 (05:52→21:11)
[2019-11-03] MEDS: MEROPENEM 1,000 MG in SODIUM CHLORIDE 0.9% 100 ML IV SCH ×3 (05:52→21:10)
[2019-11-03] MEDS: DILTIAZEM HCL 60MG TABLET PO SCH ×4 (06:09→17:13)
[2019-11-03] MEDS: INSULIN LISPRO 100 UNITS/ML SUBCUT SCH ×4 (06:09→21:00)
[2019-11-03 07:01] LABS: HEMATOCRIT. 31.3 % (42.0-52.0); HEMOGLOBIN. 10.5 g/dL (14.0-18.0); MEAN CORPUSCULAR HEMOGLOBIN 32.2 pg (28.0-32.0); MEAN CORPUSCULAR VOLUME 96.4 fL (80.0-94.0); MEAN PLATELET VOLUME 7.6 fl (7.4-10.4); PLATELET 397 x1000/uL (130-400); RED BLOOD CELL COUNT 3.25 mill/uL (4.7-6.1); RED CELL DISTRIBUTION WIDTH 12.4 % (11.6-14.6)
[2019-11-03 07:57] VITALS: BP 105/56
[2019-11-03 08:01] LABS: CHLORIDE 103 mEq/L (98-107)
[2019-11-03] MEDS: DOCUSATE SODIUM 100MG CAPSULE PO SCH ×2 (08:12→17:11)
[2019-11-03] MEDS: FAMOTIDINE 20MG TABLET PO SCH ×2 (08:13→21:00)
[2019-11-03] MEDS: METHADONE HCL 10MG TABLET PO SCH (08:13)
[2019-11-03] MEDS: APIXABAN 5 MG TABLET PO SCH ×2 (08:13→17:12)
[2019-11-03] MEDS: FOLIC ACID 1MG TABLET PO SCH (08:14)
[2019-11-03] MEDS: FUROSEMIDE 40MG TABLET PO SCH (08:14)
[2019-11-03 12:12] VITALS: BP 105/75
[2019-11-03 16:06] LABS: PLATELET ESTIMATE NORMAL
[2019-11-03 17:04] VITALS: BP 99/62
[2019-11-03 20:32] VITALS: BP 99/53
[2019-11-03] MEDS: QUETIAPINE FUMARATE 25MG TABLET PO SCH (21:11)
[2019-11-03] MEDS: INSULIN GLARGINE UD 100 UNITS/ML SYR SUBCUT SCH (21:30)
[2019-11-04] MEDS: IPRATROPIUM/ALBUTEROL 0.5-3(2.5)MG/3ML NEB HHN SCH ×4 (01:07→21:19)
[2019-11-04 04:06] LABS: 25-HYDROXY VITAMIN D3 7.7 ng/mL (.)
[2019-11-04 05:20] VITALS: BP 103/51
[2019-11-04] MEDS: MEROPENEM 1,000 MG in SODIUM CHLORIDE 0.9% 100 ML IV SCH ×3 (05:29→21:39)
[2019-11-04] MEDS: DILTIAZEM HCL 60MG TABLET PO SCH ×4 (05:29→17:05)
[2019-11-04] MEDS: ACETAMINOPHEN 325MG TABLET PO PRN (05:35)
[2019-11-04] MEDS: INSULIN LISPRO 100 UNITS/ML SUBCUT SCH ×4 (06:39→21:00)
[2019-11-04] MEDS: BLOOD SUGAR DIAGNOSTIC STRIP TEST SCH ×4 (06:39→21:39)
[2019-11-04 07:55] VITALS: BP 114/60
[2019-11-04] MEDS: METHADONE HCL 10MG TABLET PO SCH (08:00)
[2019-11-04] MEDS: DOCUSATE SODIUM 100MG CAPSULE PO SCH ×2 (08:01→17:05)
[2019-11-04] MEDS: APIXABAN 5 MG TABLET PO SCH ×2 (08:01→17:05)
[2019-11-04] MEDS: FOLIC ACID 1MG TABLET PO SCH (08:01)
[2019-11-04] MEDS: FUROSEMIDE 40MG TABLET PO SCH (08:01)
[2019-11-04] MEDS: FAMOTIDINE 20MG TABLET PO SCH (09:00)
[2019-11-04] MEDS: CARISOPRODOL 350 MG TABLET PO PRN (18:19)
[2019-11-04 20:00] VITALS: BP 109/60
[2019-11-04] MEDS: QUETIAPINE FUMARATE 25MG TABLET PO SCH (21:40)
[2019-11-04] MEDS: INSULIN GLARGINE UD 100 UNITS/ML SYR SUBCUT SCH (21:47)
[2019-11-05] MEDS: IPRATROPIUM/ALBUTEROL 0.5-3(2.5)MG/3ML NEB HHN SCH ×3 (02:18→19:54)
[2019-11-05] MEDS: MEROPENEM 1,000 MG in SODIUM CHLORIDE 0.9% 100 ML IV SCH ×3 (05:07→22:02)
[2019-11-05] MEDS: DILTIAZEM HCL 60MG TABLET PO SCH ×4 (05:24→17:44)
[2019-11-05] MEDS: BLOOD SUGAR DIAGNOSTIC STRIP TEST SCH ×4 (07:27→21:00)
[2019-11-05] MEDS: INSULIN LISPRO 100 UNITS/ML SUBCUT SCH ×4 (07:29→21:00)
[2019-11-05 07:51] LABS: BG BASE EXCESS 3.7 mmol/L (-2.0-2.0); BG CARBOXYHEMOGLOBIN 0.3 % (0.5-1.5); BG DEOXYHEMOGLOBIN 10.7 % (0.0-5.0); BG FRACTION INSPIRED OXYGEN 21; BG METHEMOGLOBIN 0.1 % (0.0-1.5); BG OXYGEN SATURATION 89.3 % (92.0-98.5); BG OXYHEMOGLOBIN 88.9 % (94.0-97.0); BG PCO2 47.3 mmHg (35.0-45.0); BG PH 7.406 (7.350-7.450); BG PO2 59.5 mmHg (75.0-100.0); BG SAMPLE SITE RIGHT RADIAL; BG TOTAL HEMOGLOBIN 10.9 g/dL (12.0-18.0); BG VENT MODE ROOM AIR
[2019-11-05 08:10] VITALS: BP 112/73
[2019-11-05] MEDS: FOLIC ACID 1MG TABLET PO SCH (08:37)
[2019-11-05] MEDS: METHADONE HCL 10MG TABLET PO SCH (08:37)
[2019-11-05] MEDS: FUROSEMIDE 40MG TABLET PO SCH (08:37)
[2019-11-05] MEDS: APIXABAN 5 MG TABLET PO SCH ×2 (08:37→16:50)
[2019-11-05] MEDS: FAMOTIDINE 40MG TABLET PO SCH ×2 (08:37→22:01)
[2019-11-05] MEDS: DOCUSATE SODIUM 100MG CAPSULE PO SCH ×2 (08:37→16:50)
[2019-11-05] MEDS ORDERED: ERGOCALCIFEROL 50000UNITS CAPSULE PO SCH (16:00)
[2019-11-05] MEDS: HYDROCODONE/APAP 7.5/325MG 1 TAB TABLET PO PRN (16:08)
[2019-11-05 20:00] VITALS: BP 125/67
[2019-11-05] MEDS: INSULIN GLARGINE UD 100 UNITS/ML SYR SUBCUT SCH (22:00)
[2019-11-05] MEDS: QUETIAPINE FUMARATE 25MG TABLET PO SCH (22:01)
[2019-11-06] MEDS: IPRATROPIUM/ALBUTEROL 0.5-3(2.5)MG/3ML NEB HHN SCH (01:17)
[2019-11-06] MEDS: DILTIAZEM HCL 60MG TABLET PO SCH ×3 (06:00→11:39)
[2019-11-06] MEDS: BLOOD SUGAR DIAGNOSTIC STRIP TEST SCH ×2 (06:17→11:38)
[2019-11-06] MEDS: INSULIN LISPRO 100 UNITS/ML SUBCUT SCH (06:17)
[2019-11-06 06:27] LABS: BASOPHILS % 0.7 % (0.0-2.0); EOSINOPHILS % 3.5 % (0.0-5.0); HEMATOCRIT. 33.7 % (42.0-52.0); HEMOGLOBIN. 11.2 g/dL (14.0-18.0); LYMPHOCYTES % 22.2 % (20.0-50.0); MEAN CORPUSCULAR HEMOGLOBIN 32.2 pg (28.0-32.0); MEAN CORPUSCULAR VOLUME 96.7 fL (80.0-94.0); MEAN PLATELET VOLUME 8.1 fl (7.4-10.4); MONOCYTES % 14.9 % (2.0-8.0); NEUTROPHILS % 58.7 % (40.0-76.0); PLATELET 346 x1000/uL (130-400); RED BLOOD CELL COUNT 3.48 mill/uL (4.7-6.1); RED CELL DISTRIBUTION WIDTH 12.5 % (11.6-14.6)
[2019-11-06 06:34] LABS: CHLORIDE 100 mEq/L (98-107)
[2019-11-06] MEDS: HYDROCODONE/APAP 7.5/325MG 1 TAB TABLET PO PRN (06:38)
[2019-11-06 07:48] VITALS: BP 113/59
[2019-11-06] MEDS: DOCUSATE SODIUM 100MG CAPSULE PO SCH (08:29)
[2019-11-06] MEDS: APIXABAN 5 MG TABLET PO SCH (08:29)
[2019-11-06] MEDS: FUROSEMIDE 40MG TABLET PO SCH (08:29)
[2019-11-06] MEDS: FAMOTIDINE 40MG TABLET PO SCH (08:29)
[2019-11-06] MEDS: FOLIC ACID 1MG TABLET PO SCH (08:29)
[2019-11-06] MEDS: METHADONE HCL 10MG TABLET PO SCH (08:30)
[2019-11-06 10:43] VITALS: BP 115/61
== END 2019-11-06 13:20 | disposition home health service (06) | DRG 551 ==
PROVIDERS: ADMIT Physical Medicine & Rehabilitation Spinal Cord Injury Medicine; ATTEND Internal Medicine
DX: M47.892 Other spondylosis, cervical region (principal); J18.9 Pneumonia, unspecified organism; G93.41 Metabolic encephalopathy; G82.50 Quadriplegia, unspecified; A41.9 Sepsis, unspecified organism; J96.01 Acute respiratory failure with hypoxia; G95.9 Disease of spinal cord, unspecified; J44.1 Chronic obstructive pulmonary disease with (acute) exacerbation; J44.0 Chronic obstructive pulmonary disease with (acute) lower respiratory infection; I50.32 Chronic diastolic (congestive) heart failure; F11.20 Opioid dependence, uncomplicated; I48.92 Unspecified atrial flutter; I11.0 Hypertensive heart disease with heart failure; G89.4 Chronic pain syndrome; F22 Delusional disorders; E11.9 Type 2 diabetes mellitus without complications; D64.9 Anemia, unspecified; B96.89 Other specified bacterial agents as the cause of diseases classified elsewhere; M25.78 Osteophyte, vertebrae; M47.12 Other spondylosis with myelopathy, cervical region; M48.02 Spinal stenosis, cervical region; M48.061 Spinal stenosis, lumbar region without neurogenic claudication; R13.10 Dysphagia, unspecified; Z87.891 Personal history of nicotine dependence; Z99.81 Dependence on supplemental oxygen
CPT/HCPCS: 36415; 36600; 71046; 71275; 74230; 80048; 80053; 80061; 82140; 82306; 82375; 82607; 82728; 82746; 82805; 82962; 83540; 83550; 83735; 84100; 84134; 84153; 84439; 84443; 84481; 85025; 92610; 92611; 93005; 93970; 94640; 97110; 97116; 97162; 97166; 97530; 97535; J1815; J2185; J7050; J7620; Q0163; Q9967; G0103

== ENCOUNTER → 2020-01-08 | Outpatient (CLI) | payer MEDICARE, MEDICAID | END | disposition home or self-care (01) | LOC: RAD 11:21 | PROVIDERS: ATTEND Neurological Surgery | DX: M43.22 Fusion of spine, cervical region (principal) | CPT/HCPCS: 72052 ==

== ENCOUNTER 2021-01-16 09:54 | Inpatient (IN) | payer MEDICARE, MEDICAID ==
[~2021-01-16] VITALS: Ht 165.1 cm; Wt 89.0 kg
[2021-01-16] MEDS ORDERED: METHYLPREDNISOLONE SOD SUCC 125 MG/2 ML VIAL IV STA (11:12)
[2021-01-16] MEDS ORDERED: ALBUTEROL (0.083%) 2.5MG/3ML NEB HHN STA (11:12)
[2021-01-16] MEDS ORDERED: IPRATROPIUM BROMIDE (0.02%) 0.5MG/2.5ML NEB HHN STA (11:12)
[2021-01-16] MEDS ORDERED: FUROSEMIDE 20MG/2ML VIAL IVP ONE (11:15)
[2021-01-16] MEDS ORDERED: LEVOFLOXACIN 500MG PREMIX 100 ML IV ONE (11:15)
[2021-01-16 11:35] LABS: EOSINOPHILS % 1.6 % (0.0-5.0); HEMOGLOBIN. 11.3 g/dL (14.0-18.0); LYMPHOCYTES % 17.3 % (20.0-50.0); MEAN CORPUSCULAR HEMOGLOBIN 30.1 pg (28.0-32.0); MEAN CORPUSCULAR VOLUME 93.5 fL (80.0-94.0); MEAN PLATELET VOLUME 7.7 fl (7.4-10.4); NEUTROPHILS % 68.1 % (40.0-76.0); PLATELET 219 x1000/uL (130-400); RED BLOOD CELL COUNT 3.74 mill/uL (4.7-6.1); RED CELL DISTRIBUTION WIDTH 13.2 % (11.6-14.6)
[2021-01-16 11:44] LABS: CHLORIDE 98 mEq/L (98-107)
[2021-01-16] MEDS ORDERED: ALBUTEROL (0.083%) 2.5MG/3ML NEB ONE (11:44)
[2021-01-16] MEDS ORDERED: IPRATROPIUM BROMIDE (0.02%) 0.5MG/2.5ML NEB ONE (11:44)
[2021-01-16 11:49] LABS: ETHANOL BLOOD < 10 mg/dL
[2021-01-16] MEDS ORDERED: MAGNESIUM/ALUMINUM HYDROXIDE/SIMETHICONE 30ML UDC PO PRN (18:45)
[2021-01-16] MEDS ORDERED: ONDANSETRON HCL 4MG/2ML INJ IV PRN (18:45)
[2021-01-16] MEDS ORDERED: DIPHENHYDRAMINE 50MG/ML VIAL IV PRN (18:45)
[2021-01-16] MEDS ORDERED: ACETAMINOPHEN 325MG TABLET PO PRN (18:45)
[2021-01-16] MEDS ORDERED: IPRATROPIUM/ALBUTEROL 0.5-3(2.5)MG/3ML NEB HHN PRN (18:45)
[2021-01-16] MEDS ORDERED: DEXTROSE 50% WATER 50ML SYRINGE IV PRN (18:45)
[2021-01-16] MEDS ORDERED: LACTULOSE 20G/30ML UDC PO PRN (18:45)
[2021-01-16] MEDS ORDERED: MAGNESIUM HYDROXIDE 400MG/5ML 30ML UDC PO PRN (18:45)
[2021-01-16] MEDS ORDERED: GUAIFENESIN 200MG/10ML SUGAR FREE UDC PO PRN (18:45)
[2021-01-16] MEDS ORDERED: CARISOPRODOL 350 MG TABLET PO PRN (18:45)
[2021-01-16] MEDS ORDERED: HYDROCODONE/ACETAMINOPHEN 5/325MG TABLET PO PRN (18:45)
[2021-01-16] MEDS ORDERED: IPRATROPIUM/ALBUTEROL 0.5-3(2.5)MG/3ML NEB HHN SCH (19:30)
[2021-01-16] MEDS: SODIUM CHLORIDE 0.9% INJ 3ML FLUSH IVF SCH (22:00)
[2021-01-17] VITALS (10 sets, daily range): BP systolic 108–151; BP diastolic 61–97
[2021-01-17] MEDS: INSULIN LISPRO 100 UNITS/ML SUBCUT SCH ×5 (01:00→21:00)
[2021-01-17] MEDS: BLOOD SUGAR DIAGNOSTIC STRIP TEST SCH ×5 (01:00→21:00)
[2021-01-17] MEDS: ENOXAPARIN 40MG/0.4ML SYR SUBCUT SCH ×2 (01:35→21:16)
[2021-01-17] MEDS: FAMOTIDINE 20MG TABLET PO SCH ×3 (01:36→21:11)
[2021-01-17] MEDS: DILTIAZEM HCL 60MG TABLET PO SCH ×4 (01:37→21:11)
[2021-01-17] MEDS: SODIUM CHLORIDE 0.9% INJ 3ML FLUSH IVF SCH ×3 (06:34→21:11)
[2021-01-17] MEDS: FOLIC ACID 1MG TABLET PO SCH (08:15)
[2021-01-17] MEDS: DOCUSATE SODIUM 100MG CAPSULE PO SCH ×2 (08:15→16:58)
[2021-01-17] MEDS: FUROSEMIDE 40MG/4ML VIAL IVP SCH (08:16)
[2021-01-17] MEDS: METHADONE HCL 10MG TABLET PO SCH (08:18)
[2021-01-17] MEDS: METOLAZONE 10MG TABLET PO SCH (08:26)
[2021-01-17 10:05] LABS: BG BASE EXCESS 4.8 mmol/L (-2.0-2.0); BG CARBOXYHEMOGLOBIN 0.3 % (0.5-1.5); BG DEOXYHEMOGLOBIN 6.9 % (0.0-5.0); BG FRACTION INSPIRED OXYGEN 50; BG HCO3 ACT 31.2 mmol/L (22.0-26.0); BG METHEMOGLOBIN 0.2 % (0.0-1.5); BG OXYGEN SATURATION 93.1 % (92.0-98.5); BG OXYHEMOGLOBIN 92.6 % (94.0-97.0); BG PCO2 56.3 mmHg (35.0-45.0); BG PH 7.361 (7.350-7.450); BG PO2 74.1 mmHg (75.0-100.0); BG SAMPLE SITE RIGHT RADIAL; BG TOTAL HEMOGLOBIN 9.6 g/dL (12.0-18.0); BG VENT MODE MASK - BIPAP
[2021-01-17] MEDS ORDERED: LEVOFLOXACIN 500MG PREMIX 100 ML IV SCH (11:00)
[2021-01-17] MEDS: LEVOFLOXACIN 500MG PREMIX 100 ML IV SCH (13:59)
[2021-01-17] MEDS: IPRATROPIUM/ALBUTEROL 0.5-3(2.5)MG/3ML NEB HHN SCH ×2 (16:39→20:38)
[2021-01-17] MEDS: METHYLPREDNISOLONE SOD SUCC 40 MG/ML VIAL IV SCH (16:58)
[2021-01-18] VITALS (12 sets, daily range): BP systolic 124–154; BP diastolic 57–85
[2021-01-18] MEDS: IPRATROPIUM/ALBUTEROL 0.5-3(2.5)MG/3ML NEB HHN SCH ×4 (00:13→21:10)
[2021-01-18] MEDS: METHYLPREDNISOLONE SOD SUCC 40 MG/ML VIAL IV SCH ×3 (03:11→17:02)
[2021-01-18] MEDS: BLOOD SUGAR DIAGNOSTIC STRIP TEST SCH ×4 (06:05→21:00)
[2021-01-18] MEDS: DILTIAZEM HCL 60MG TABLET PO SCH ×3 (06:11→21:05)
[2021-01-18] MEDS: SODIUM CHLORIDE 0.9% INJ 3ML FLUSH IVF SCH ×3 (06:11→21:05)
[2021-01-18] MEDS: DOCUSATE SODIUM 100MG CAPSULE PO SCH ×2 (08:18→17:02)
[2021-01-18] MEDS: FAMOTIDINE 20MG TABLET PO SCH ×2 (08:18→21:04)
[2021-01-18] MEDS: FOLIC ACID 1MG TABLET PO SCH (08:18)
[2021-01-18] MEDS: METOLAZONE 10MG TABLET PO SCH (08:18)
[2021-01-18] MEDS: INSULIN LISPRO 100 UNITS/ML SUBCUT SCH ×4 (08:19→21:09)
[2021-01-18] MEDS: FUROSEMIDE 40MG/4ML VIAL IVP SCH (08:19)
[2021-01-18] MEDS: METHADONE HCL 10MG TABLET PO SCH (08:22)
[2021-01-18] MEDS ORDERED: LIDOCAINE HCL 1% 20ML VIAL (Pyxis) INJ ONE (11:14)
[2021-01-18] MEDS: LEVOFLOXACIN 500MG PREMIX 100 ML IV SCH (11:48)
[2021-01-18 12:34] LABS: BG BASE EXCESS 12.6 mmol/L (-2.0-2.0); BG CARBOXYHEMOGLOBIN 0.3 % (0.5-1.5); BG DEOXYHEMOGLOBIN 12.3 % (0.0-5.0); BG FRACTION INSPIRED OXYGEN 40; BG HCO3 ACT 39.5 mmol/L (22.0-26.0); BG METHEMOGLOBIN 0.2 % (0.0-1.5); BG OXYGEN SATURATION 87.6 % (92.0-98.5); BG OXYHEMOGLOBIN 87.2 % (94.0-97.0); BG PCO2 64.3 mmHg (35.0-45.0); BG PH 7.406 (7.350-7.450); BG PO2 54.8 mmHg (75.0-100.0); BG SAMPLE SITE RIGHT BRACHIAL; BG TOTAL HEMOGLOBIN 10.9 g/dL (12.0-18.0); BG VENT MODE NASAL CANNULA
[2021-01-18] MEDS: ENOXAPARIN 40MG/0.4ML SYR SUBCUT SCH (21:07)
[2021-01-19] VITALS (12 sets, daily range): BP systolic 98–133; BP diastolic 59–88
[2021-01-19] MEDS: IPRATROPIUM/ALBUTEROL 0.5-3(2.5)MG/3ML NEB HHN SCH ×6 (00:36→21:23)
[2021-01-19] MEDS: METHYLPREDNISOLONE SOD SUCC 40 MG/ML VIAL IV SCH ×3 (01:38→20:19)
[2021-01-19] MEDS: SODIUM CHLORIDE 0.9% INJ 3ML FLUSH IVF SCH ×3 (05:35→20:26)
[2021-01-19] MEDS: ACETAMINOPHEN 325MG TABLET PO PRN (05:35)
[2021-01-19] MEDS: DILTIAZEM HCL 60MG TABLET PO SCH ×3 (05:35→20:18)
[2021-01-19] MEDS: BLOOD SUGAR DIAGNOSTIC STRIP TEST SCH ×4 (06:44→20:26)
[2021-01-19] MEDS: INSULIN LISPRO 100 UNITS/ML SUBCUT SCH ×4 (06:44→20:20)
[2021-01-19] MEDS: DOCUSATE SODIUM 100MG CAPSULE PO SCH ×2 (08:29→17:00)
[2021-01-19] MEDS: FOLIC ACID 1MG TABLET PO SCH (08:29)
[2021-01-19] MEDS: METOLAZONE 10MG TABLET PO SCH (08:29)
[2021-01-19] MEDS: FUROSEMIDE 40MG/4ML VIAL IVP SCH (08:29)
[2021-01-19] MEDS: METHADONE HCL 10MG TABLET PO SCH (08:31)
[2021-01-19] MEDS: FAMOTIDINE 20MG TABLET PO SCH ×2 (08:32→20:18)
[2021-01-19] MEDS: LEVOFLOXACIN 500MG PREMIX 100 ML IV SCH (11:44)
[2021-01-19] MEDS: ZOLPIDEM TARTRATE 5MG TABLET PO PRN (20:18)
[2021-01-19] MEDS: ENOXAPARIN 40MG/0.4ML SYR SUBCUT SCH (20:19)
[2021-01-20] VITALS (12 sets, daily range): BP systolic 97–132; BP diastolic 54–77
[2021-01-20] MEDS: IPRATROPIUM/ALBUTEROL 0.5-3(2.5)MG/3ML NEB HHN SCH ×6 (01:10→20:20)
[2021-01-20] MEDS: BLOOD SUGAR DIAGNOSTIC STRIP TEST SCH ×4 (04:34→20:46)
[2021-01-20] MEDS: SODIUM CHLORIDE 0.9% INJ 3ML FLUSH IVF SCH ×2 (04:34→14:18)
[2021-01-20] MEDS: DILTIAZEM HCL 60MG TABLET PO SCH ×3 (04:34→21:05)
[2021-01-20] MEDS: METOLAZONE 10MG TABLET PO SCH (08:16)
[2021-01-20] MEDS: FAMOTIDINE 20MG TABLET PO SCH ×2 (08:16→21:05)
[2021-01-20] MEDS: DOCUSATE SODIUM 100MG CAPSULE PO SCH ×2 (08:16→16:05)
[2021-01-20] MEDS: FOLIC ACID 1MG TABLET PO SCH (08:16)
[2021-01-20] MEDS: FUROSEMIDE 40MG/4ML VIAL IVP SCH (08:16)
[2021-01-20] MEDS: METHYLPREDNISOLONE SOD SUCC 40 MG/ML VIAL IV SCH (08:16)
[2021-01-20] MEDS: METHADONE HCL 10MG TABLET PO SCH (08:20)
[2021-01-20] MEDS: INSULIN LISPRO 100 UNITS/ML SUBCUT SCH ×4 (08:25→20:47)
[2021-01-20] MEDS ORDERED: LEVOFLOXACIN 500MG TABLET PO SCH (11:00)
[2021-01-20 12:32] LABS: BG BASE EXCESS 15.9 mmol/L (-2.0-2.0); BG CARBOXYHEMOGLOBIN 0.4 % (0.5-1.5); BG DEOXYHEMOGLOBIN 22.3 % (0.0-5.0); BG FRACTION INSPIRED OXYGEN 21; BG HCO3 ACT 42.1 mmol/L (22.0-26.0); BG METHEMOGLOBIN 0.3 % (0.0-1.5); BG OXYGEN SATURATION 77.5 % (92.0-98.5); BG PCO2 60.6 mmHg (35.0-45.0); BG SAMPLE SITE RIGHT RADIAL; BG TOTAL HEMOGLOBIN 10.8 g/dL (12.0-18.0); BG VENT MODE ROOM AIR
[2021-01-20 13:00] LABS: BG BASE EXCESS 15.9 mmol/L (-2.0-2.0); BG CARBOXYHEMOGLOBIN 0.3 % (0.5-1.5); BG DEOXYHEMOGLOBIN 7.7 % (0.0-5.0); BG METHEMOGLOBIN 0.2 % (0.0-1.5); BG OXYGEN SATURATION 92.3 % (92.0-98.5); BG OXYHEMOGLOBIN 91.8 % (94.0-97.0); BG PO2 63.9 mmHg (75.0-100.0); BG SAMPLE SITE RIGHT RADIAL; BG VENT MODE MASK - VENTI
[2021-01-20] MEDS: ENOXAPARIN 40MG/0.4ML SYR SUBCUT SCH (21:05)
[2021-01-20] MEDS: ZOLPIDEM TARTRATE 5MG TABLET PO PRN (21:05)
[2021-01-21] VITALS (13 sets, daily range): BP systolic 101–140; BP diastolic 41–86
[2021-01-21] MEDS: IPRATROPIUM/ALBUTEROL 0.5-3(2.5)MG/3ML NEB HHN SCH ×6 (00:34→21:26)
[2021-01-21] MEDS: DILTIAZEM HCL 60MG TABLET PO SCH ×3 (06:28→21:03)
[2021-01-21] MEDS: SODIUM CHLORIDE 0.9% INJ 3ML FLUSH IVF SCH ×4 (06:29→21:03)
[2021-01-21] MEDS: INSULIN LISPRO 100 UNITS/ML SUBCUT SCH ×4 (06:37→21:02)
[2021-01-21] MEDS: BLOOD SUGAR DIAGNOSTIC STRIP TEST SCH ×4 (06:37→21:03)
[2021-01-21] MEDS: FUROSEMIDE 40MG/4ML VIAL IVP SCH (09:06)
[2021-01-21] MEDS: PREDNISONE 20MG TABLET PO SCH (09:07)
[2021-01-21] MEDS: FAMOTIDINE 20MG TABLET PO SCH ×2 (09:08→21:02)
[2021-01-21] MEDS: METOLAZONE 10MG TABLET PO SCH (09:09)
[2021-01-21] MEDS: DOCUSATE SODIUM 100MG CAPSULE PO SCH ×2 (09:09→16:28)
[2021-01-21] MEDS: METHADONE HCL 10MG TABLET PO SCH (09:12)
[2021-01-21] MEDS: FOLIC ACID 1MG TABLET PO SCH (09:12)
[2021-01-21] MEDS: ENOXAPARIN 40MG/0.4ML SYR SUBCUT SCH (21:03)
[2021-01-22] VITALS (12 sets, daily range): BP systolic 82–130; BP diastolic 57–73
[2021-01-22] MEDS: IPRATROPIUM/ALBUTEROL 0.5-3(2.5)MG/3ML NEB HHN SCH ×6 (00:27→20:15)
[2021-01-22] MEDS: SODIUM CHLORIDE 0.9% INJ 3ML FLUSH IVF SCH ×3 (06:04→21:00)
[2021-01-22] MEDS: BLOOD SUGAR DIAGNOSTIC STRIP TEST SCH ×4 (06:04→20:56)
[2021-01-22] MEDS: DILTIAZEM HCL 60MG TABLET PO SCH ×3 (06:04→21:07)
[2021-01-22] MEDS: FUROSEMIDE 40MG/4ML VIAL IVP SCH (08:26)
[2021-01-22] MEDS: METOLAZONE 10MG TABLET PO SCH (08:26)
[2021-01-22] MEDS: DOCUSATE SODIUM 100MG CAPSULE PO SCH ×2 (08:27→17:44)
[2021-01-22] MEDS: FOLIC ACID 1MG TABLET PO SCH (08:27)
[2021-01-22] MEDS: FAMOTIDINE 20MG TABLET PO SCH ×2 (08:27→21:07)
[2021-01-22] MEDS: PREDNISONE 20MG TABLET PO SCH (08:29)
[2021-01-22] MEDS: METHADONE HCL 10MG TABLET PO SCH (08:29)
[2021-01-22] MEDS: INSULIN LISPRO 100 UNITS/ML SUBCUT SCH ×4 (08:30→21:08)
[2021-01-22 09:30] LABS: BG BASE EXCESS 14.1 mmol/L (-2.0-2.0); BG CARBOXYHEMOGLOBIN 0.3 % (0.5-1.5); BG DEOXYHEMOGLOBIN 10.6 % (0.0-5.0); BG FRACTION INSPIRED OXYGEN 36; BG METHEMOGLOBIN 0.3 % (0.0-1.5); BG OXYGEN SATURATION 89.3 % (92.0-98.5); BG OXYHEMOGLOBIN 88.8 % (94.0-97.0); BG PH 7.457 (7.350-7.450); BG PO2 58.3 mmHg (75.0-100.0); BG SAMPLE SITE RIGHT RADIAL; BG TOTAL HEMOGLOBIN 10.4 g/dL (12.0-18.0); BG VENT MODE NASAL CANNULA
[2021-01-22] MEDS: ENOXAPARIN 40MG/0.4ML SYR SUBCUT SCH (21:08)
[2021-01-23] VITALS (8 sets, daily range): BP systolic 101–128; BP diastolic 61–77
[2021-01-23] MEDS: IPRATROPIUM/ALBUTEROL 0.5-3(2.5)MG/3ML NEB HHN SCH ×6 (00:53→20:00)
[2021-01-23] MEDS: SODIUM CHLORIDE 0.9% INJ 3ML FLUSH IVF SCH (05:41)
[2021-01-23] MEDS: DILTIAZEM HCL 60MG TABLET PO SCH ×2 (05:50→14:00)
[2021-01-23] MEDS: BLOOD SUGAR DIAGNOSTIC STRIP TEST SCH ×3 (06:01→17:47)
[2021-01-23] MEDS: INSULIN LISPRO 100 UNITS/ML SUBCUT SCH ×3 (07:55→17:53)
[2021-01-23] MEDS: DOCUSATE SODIUM 100MG CAPSULE PO SCH ×2 (08:59→17:00)
[2021-01-23] MEDS: FOLIC ACID 1MG TABLET PO SCH (08:59)
[2021-01-23] MEDS: FAMOTIDINE 20MG TABLET PO SCH (08:59)
[2021-01-23] MEDS: METOLAZONE 10MG TABLET PO SCH (08:59)
[2021-01-23] MEDS: FUROSEMIDE 40MG/4ML VIAL IVP SCH (09:00)
[2021-01-23] MEDS: PREDNISONE 20MG TABLET PO SCH (09:01)
[2021-01-23] MEDS ORDERED: METHADONE HCL 10MG TABLET PO SCH (09:15)
[2021-01-23] MEDS: ACETAMINOPHEN 325MG TABLET PO PRN (18:33)
== END 2021-01-23 20:52 | disposition home health service (06) | DRG 291 ==
LOC: ER 09:54 → 5WST 11:14 → ENRESERV 20:58 → 3WST 01-17 03:30
PROVIDERS: ADMIT Internal Medicine; ATTEND Internal Medicine
PROC: 5A09357 Assistance with Respiratory Ventilation, Less than 24 Consecutive Hours, Continuous Positive Airway Pressure (ICD-10-PCS; 2021-01-17)
PROC: 02HV33Z Insertion of Infusion Device into Superior Vena Cava, Percutaneous Approach (ICD-10-PCS; principal; 2021-01-18)
PROC: B548ZZA Ultrasonography of Superior Vena Cava, Guidance (ICD-10-PCS; 2021-01-18)
PROC: 5A09357 Assistance with Respiratory Ventilation, Less than 24 Consecutive Hours, Continuous Positive Airway Pressure (ICD-10-PCS; 2021-01-18)
PROC: 5A09357 Assistance with Respiratory Ventilation, Less than 24 Consecutive Hours, Continuous Positive Airway Pressure (ICD-10-PCS; 2021-01-21)
DX: I11.0 Hypertensive heart disease with heart failure (principal); J96.21 Acute and chronic respiratory failure with hypoxia; J18.9 Pneumonia, unspecified organism; J44.0 Chronic obstructive pulmonary disease with (acute) lower respiratory infection; J44.1 Chronic obstructive pulmonary disease with (acute) exacerbation; J98.11 Atelectasis; E87.4 Mixed disorder of acid-base balance; F11.20 Opioid dependence, uncomplicated; I50.43 Acute on chronic combined systolic (congestive) and diastolic (congestive) heart failure; G89.4 Chronic pain syndrome; M47.816 Spondylosis without myelopathy or radiculopathy, lumbar region; M48.02 Spinal stenosis, cervical region; M48.061 Spinal stenosis, lumbar region without neurogenic claudication; M54.9 Dorsalgia, unspecified; R26.9 Unspecified abnormalities of gait and mobility; R74.01 Elevation of levels of liver transaminase levels; D64.9 Anemia, unspecified; Z82.49 Family history of ischemic heart disease and other diseases of the circulatory system; E11.9 Type 2 diabetes mellitus without complications; Z86.718 Personal history of other venous thrombosis and embolism; Z87.891 Personal history of nicotine dependence; Z98.1 Arthrodesis status; Z99.81 Dependence on supplemental oxygen; Z79.899 Other long term (current) drug therapy; Z79.4 Long term (current) use of insulin
CPT/HCPCS: 36415; 36600; 71045; 76937; 80053; 80320; 82375; 82805; 82962; 83036; 83605; 83880; 84484; 85025; 92610; 93005; 93306; 93970; 94640; 94660; 97116; 97161; 97166; 99291; A6261; C1725; C1892; J1650; J1815; J1940; J1956; J2920; J2930; J3490; J7512; G0480

== ENCOUNTER 2021-03-10 18:10 | Inpatient (IN) | payer MEDICARE, MEDICAID ==
[~2021-03-10] VITALS: Ht 172.7 cm; Wt 83.1 kg
[2021-03-10] MEDS ORDERED: FUROSEMIDE 40MG/4ML VIAL IVP ONE (18:45)
[2021-03-10] MEDS ORDERED: NITROGLYCERIN OINT 1GM/INCH UDPKT TD ONE (18:45)
[2021-03-10 19:18] LABS: HEMATOCRIT. 37.5 % (42.0-52.0); HEMOGLOBIN. 12.1 g/dL (14.0-18.0); MEAN CORPUSCULAR HEMOGLOBIN 26.8 pg (28.0-32.0); MEAN CORPUSCULAR VOLUME 83.3 fL (80.0-94.0); MEAN PLATELET VOLUME 7.7 fl (7.4-10.4); PLATELET 279 x1000/uL (130-400); RED CELL DISTRIBUTION WIDTH 17.1 % (11.6-14.6)
[2021-03-10 19:24] LABS: CHLORIDE 92 mEq/L (98-107)
[2021-03-10] MEDS ORDERED: ONDANSETRON HCL 4MG/2ML INJ IV PRN (19:30)
[2021-03-10] MEDS ORDERED: GUAIFENESIN 200MG/10ML SUGAR FREE UDC PO PRN (19:30)
[2021-03-10] MEDS ORDERED: DIPHENHYDRAMINE 50MG/ML VIAL IV PRN (19:30)
[2021-03-10] MEDS ORDERED: MAGNESIUM HYDROXIDE 400MG/5ML 30ML UDC PO PRN (19:30)
[2021-03-10] MEDS ORDERED: MAGNESIUM/ALUMINUM HYDROXIDE/SIMETHICONE 30ML UDC PO PRN (19:30)
[2021-03-10] MEDS ORDERED: IPRATROPIUM/ALBUTEROL 0.5-3(2.5)MG/3ML NEB HHN PRN (19:30)
[2021-03-10] MEDS ORDERED: DEXTROSE 50% WATER 50ML SYRINGE IV PRN (19:30)
[2021-03-10] MEDS ORDERED: ACETAMINOPHEN 325MG TABLET PO PRN ×2 (19:30)
[2021-03-10 19:36] LABS: PLATELET ESTIMATE NORMAL
[2021-03-10] MEDS ORDERED: POTASSIUM CHLORIDE 20MEQ TABLET SR PO NR (21:00)
[2021-03-10] MEDS: INSULIN LISPRO 100 UNITS/ML SUBCUT SCH (21:00)
[2021-03-10] MEDS ORDERED: IPRATROPIUM/ALBUTEROL 0.5-3(2.5)MG/3ML NEB HHN ONE (21:30)
[2021-03-10] MEDS: ENOXAPARIN 40MG/0.4ML SYR SUBCUT SCH (21:31)
[2021-03-10] MEDS: METHYLPREDNISOLONE SOD SUCC 125 MG/2 ML VIAL IV SCH (21:31)
[2021-03-10] MEDS: IPRATROPIUM/ALBUTEROL 0.5-3(2.5)MG/3ML NEB HHN SCH (21:32)
[2021-03-10] MEDS: GUAIFENESIN 600MG ER TABLET PO SCH (21:32)
[2021-03-10] MEDS: INSULIN GLARGINE UD 100 UNITS/ML SYR SUBCUT SCH (21:32)
[2021-03-10] MEDS: OMEPRAZOLE 20MG CAPSULE EXTENDED RELEASE PO SCH (21:32)
[2021-03-10] MEDS: BLOOD SUGAR DIAGNOSTIC STRIP TEST SCH (21:33)
[2021-03-10] MEDS: SODIUM CHLORIDE 0.9% INJ 3ML FLUSH IVF SCH (21:33)
[2021-03-10] MEDS: DILTIAZEM HCL 30MG TABLET PO SCH (22:00)
[2021-03-10 23:00] VITALS: BP 105/58
[2021-03-11] VITALS: BP 105/58
[2021-03-11 04:00] VITALS: BP 105/62
[2021-03-11] MEDS: METHYLPREDNISOLONE SOD SUCC 125 MG/2 ML VIAL IV SCH ×3 (05:27→21:35)
[2021-03-11] MEDS: OMEPRAZOLE 20MG CAPSULE EXTENDED RELEASE PO SCH ×2 (05:27→21:12)
[2021-03-11] MEDS: DILTIAZEM HCL 30MG TABLET PO SCH ×3 (05:27→21:10)
[2021-03-11] MEDS: INSULIN LISPRO 100 UNITS/ML SUBCUT SCH ×4 (06:22→21:34)
[2021-03-11] MEDS: SODIUM CHLORIDE 0.9% INJ 3ML FLUSH IVF SCH ×3 (06:23→21:11)
[2021-03-11] MEDS: BLOOD SUGAR DIAGNOSTIC STRIP TEST SCH ×4 (06:23→21:00)
[2021-03-11 08:00] VITALS: BP 101/59
[2021-03-11] MEDS ORDERED: PNEUMOCOCCAL 23-VAL P-SAC VAC 0.5 ML IM ONE (08:00)
[2021-03-11] MEDS ORDERED: METOLAZONE 10MG TABLET PO SCH (09:00)
[2021-03-11] MEDS: METHADONE HCL 10MG TABLET PO SCH (09:23)
[2021-03-11] MEDS: FUROSEMIDE 40MG/4ML VIAL IVP SCH (09:23)
[2021-03-11] MEDS: FOLIC ACID 1MG TABLET PO SCH (09:24)
[2021-03-11] MEDS: GUAIFENESIN 600MG ER TABLET PO SCH ×2 (09:24→21:12)
[2021-03-11 12:00] VITALS: BP 92/67
[2021-03-11] MEDS: METOLAZONE 10MG TABLET PO SCH (13:19)
[2021-03-11 16:00] VITALS: BP 110/58
[2021-03-11 20:00] VITALS: BP 89/48
[2021-03-11] MEDS: ENOXAPARIN 40MG/0.4ML SYR SUBCUT SCH (21:11)
[2021-03-11] MEDS: INSULIN GLARGINE UD 100 UNITS/ML SYR SUBCUT SCH (23:42)
[2021-03-12] VITALS: BP 103/51
[2021-03-12] MEDS ORDERED: LEVOFLOXACIN 500MG PREMIX 100 ML IV SCH
[2021-03-12 04:00] VITALS: BP 110/63
[2021-03-12] MEDS: SODIUM CHLORIDE 0.9% INJ 3ML FLUSH IVF SCH ×3 (06:00→22:35)
[2021-03-12] MEDS: DILTIAZEM HCL 30MG TABLET PO SCH ×3 (06:00→21:07)
[2021-03-12] MEDS: BLOOD SUGAR DIAGNOSTIC STRIP TEST SCH ×4 (06:45→21:06)
[2021-03-12] MEDS: METHYLPREDNISOLONE SOD SUCC 125 MG/2 ML VIAL IV SCH ×2 (07:09→14:33)
[2021-03-12] MEDS: INSULIN LISPRO 100 UNITS/ML SUBCUT SCH ×4 (07:41→21:07)
[2021-03-12] MEDS: OMEPRAZOLE 20MG CAPSULE EXTENDED RELEASE PO SCH ×2 (07:41→21:06)
[2021-03-12] MEDS: FOLIC ACID 1MG TABLET PO SCH (09:19)
[2021-03-12] MEDS: METHADONE HCL 10MG TABLET PO SCH (09:19)
[2021-03-12] MEDS: FUROSEMIDE 40MG/4ML VIAL IVP SCH (09:19)
[2021-03-12] MEDS: GUAIFENESIN 600MG ER TABLET PO SCH ×2 (09:20→21:06)
[2021-03-12] MEDS: METOLAZONE 10MG TABLET PO SCH (09:20)
[2021-03-12 12:00] VITALS: BP 109/61
[2021-03-12] MEDS: IPRATROPIUM/ALBUTEROL 0.5-3(2.5)MG/3ML NEB HHN SCH ×2 (14:45→21:08)
[2021-03-12 16:00] VITALS: BP 113/58
[2021-03-12 20:00] VITALS: BP 107/55
[2021-03-12] MEDS: LEVOFLOXACIN 250MG PREMIX 50 ML IV SCH (21:05)
[2021-03-12] MEDS: ENOXAPARIN 40MG/0.4ML SYR SUBCUT SCH (21:06)
[2021-03-12] MEDS: INSULIN GLARGINE UD 100 UNITS/ML SYR SUBCUT SCH (22:34)
[2021-03-13] VITALS: BP 107/58
[2021-03-13] MEDS: IPRATROPIUM/ALBUTEROL 0.5-3(2.5)MG/3ML NEB HHN SCH ×3 (02:44→14:21)
[2021-03-13 04:00] VITALS: BP 106/70
[2021-03-13] MEDS: DILTIAZEM HCL 30MG TABLET PO SCH ×3 (06:00→21:50)
[2021-03-13] MEDS: SODIUM CHLORIDE 0.9% INJ 3ML FLUSH IVF SCH ×3 (06:00→21:50)
[2021-03-13] MEDS: FAMOTIDINE 20MG TABLET PO SCH (06:39)
[2021-03-13] MEDS: PREDNISONE 20MG TABLET PO SCH (06:40)
[2021-03-13] MEDS: BLOOD SUGAR DIAGNOSTIC STRIP TEST SCH ×4 (06:40→21:50)
[2021-03-13] MEDS: INSULIN LISPRO 100 UNITS/ML SUBCUT SCH ×4 (07:15→21:00)
[2021-03-13 08:00] VITALS: BP 114/63
[2021-03-13] MEDS: FUROSEMIDE 40MG/4ML VIAL IVP SCH (09:00)
[2021-03-13] MEDS: METOLAZONE 10MG TABLET PO SCH (09:19)
[2021-03-13] MEDS: METHADONE HCL 10MG TABLET PO SCH (09:32)
[2021-03-13] MEDS: FOLIC ACID 1MG TABLET PO SCH (09:32)
[2021-03-13] MEDS: GUAIFENESIN 600MG ER TABLET PO SCH ×2 (09:33→21:49)
[2021-03-13 12:00] VITALS: BP 115/75
[2021-03-13 16:00] VITALS: BP 113/67
[2021-03-13 20:00] VITALS: BP 113/63
[2021-03-13] MEDS: ENOXAPARIN 40MG/0.4ML SYR SUBCUT SCH (21:49)
[2021-03-13] MEDS: LEVOFLOXACIN 250MG PREMIX 50 ML IV SCH (21:50)
[2021-03-13] MEDS: INSULIN GLARGINE UD 100 UNITS/ML SYR SUBCUT SCH (21:53)
[2021-03-14] VITALS: BP 118/66
[2021-03-14 04:00] VITALS: BP 116/69
[2021-03-14] MEDS: DILTIAZEM HCL 30MG TABLET PO SCH (06:00)
[2021-03-14] MEDS: SODIUM CHLORIDE 0.9% INJ 3ML FLUSH IVF SCH (06:09)
[2021-03-14] MEDS: FAMOTIDINE 20MG TABLET PO SCH (06:13)
[2021-03-14] MEDS: PREDNISONE 20MG TABLET PO SCH (06:15)
[2021-03-14] MEDS: INSULIN LISPRO 100 UNITS/ML SUBCUT SCH (06:39)
[2021-03-14] MEDS: BLOOD SUGAR DIAGNOSTIC STRIP TEST SCH (06:39)
[2021-03-14 08:00] VITALS: BP 105/72
[2021-03-14] MEDS: FOLIC ACID 1MG TABLET PO SCH (09:15)
[2021-03-14] MEDS: FUROSEMIDE 40MG/4ML VIAL IVP SCH (09:15)
[2021-03-14] MEDS: GUAIFENESIN 600MG ER TABLET PO SCH (09:15)
[2021-03-14] MEDS: METOLAZONE 10MG TABLET PO SCH (09:15)
[2021-03-14] MEDS: METHADONE HCL 10MG TABLET PO SCH (09:16)
[2021-03-14] MEDS: IPRATROPIUM/ALBUTEROL 0.5-3(2.5)MG/3ML NEB HHN SCH (09:26)
[2021-03-14 10:11] VITALS: BP 134/71
[2021-03-14] MEDS ORDERED: LEVOFLOXACIN 250MG TABLET PO SCH (15:00)
== END 2021-03-14 12:26 | disposition home or self-care (01) | DRG 291 ==
LOC: ER 18:10 → 5WST 21:22 → ENRESERV 21:53
PROVIDERS: ADMIT Internal Medicine; ATTEND Internal Medicine
PROC: 05HY33Z Insertion of Infusion Device into Upper Vein, Percutaneous Approach (ICD-10-PCS; principal; 2021-03-13)
PROC: B54MZZA Ultrasonography of Right Upper Extremity Veins, Guidance (ICD-10-PCS; 2021-03-13)
PROC: B51M1ZA Fluoroscopy of Right Upper Extremity Veins using Low Osmolar Contrast, Guidance (ICD-10-PCS; 2021-03-13)
DX: I11.0 Hypertensive heart disease with heart failure (principal); J96.21 Acute and chronic respiratory failure with hypoxia; J44.1 Chronic obstructive pulmonary disease with (acute) exacerbation; E11.9 Type 2 diabetes mellitus without complications; M19.90 Unspecified osteoarthritis, unspecified site; Z86.718 Personal history of other venous thrombosis and embolism; Z87.891 Personal history of nicotine dependence; Z98.1 Arthrodesis status; Z99.81 Dependence on supplemental oxygen; Z79.899 Other long term (current) drug therapy; I50.33 Acute on chronic diastolic (congestive) heart failure; Z20.822 Contact with and (suspected) exposure to COVID-19; Z79.4 Long term (current) use of insulin
CPT/HCPCS: 36415; 36573; 71045; 80053; 82962; 83036; 83735; 83880; 84484; 85025; 87426; 93005; 93970; 94640; 99285; A6261; C1725; C1893; J1200; J1650; J1815; J1940; J1956; J2930; J7040; J7512

== ENCOUNTER 2021-12-11 09:46 | Inpatient (IN) | payer MEDICARE, MEDICAID ==
[~2021-12-11] VITALS: Ht 185.4 cm; Wt 83.5 kg
[2021-12-11] MEDS ORDERED: FUROSEMIDE 40MG/4ML VIAL IVP ONE (10:15)
[2021-12-11 10:41] LABS: BASOPHILS % 0.4 % (0.0-2.0); HEMATOCRIT. 43.4 % (42.0-52.0); HEMOGLOBIN. 14.4 g/dL (14.0-18.0); LYMPHOCYTES % 8.6 % (20.0-50.0); MEAN CORPUSCULAR HEMOGLOBIN 30.5 pg (28.0-32.0); MEAN CORPUSCULAR VOLUME 92.3 fL (80.0-94.0); MEAN PLATELET VOLUME 8.1 fl (7.4-10.4); MONOCYTES % 7.5 % (2.0-8.0); NEUTROPHILS % 83.5 % (40.0-76.0); PLATELET 252 x1000/uL (130-400); RED BLOOD CELL COUNT 4.71 mill/uL (4.7-6.1); RED CELL DISTRIBUTION WIDTH 13.1 % (11.6-14.6)
[2021-12-11 10:45] LABS: CHLORIDE 93 mEq/L (98-107)
[2021-12-11] MEDS ORDERED: DIPHENHYDRAMINE 50MG/ML VIAL IV PRN (18:00)
[2021-12-11] MEDS ORDERED: ONDANSETRON HCL 4MG/2ML INJ IV PRN (18:00)
[2021-12-11] MEDS ORDERED: MAGNESIUM/ALUMINUM HYDROXIDE/SIMETHICONE 30ML UDC PO PRN (18:00)
[2021-12-11] MEDS ORDERED: IPRATROPIUM/ALBUTEROL 0.5-3(2.5)MG/3ML NEB HHN PRN (18:00)
[2021-12-11] MEDS ORDERED: ACETAMINOPHEN 325MG TABLET PO PRN ×2 (18:00)
[2021-12-11] MEDS ORDERED: ZOLPIDEM TARTRATE 5MG TABLET PO PRN (18:00)
[2021-12-11] MEDS ORDERED: GUAIFENESIN 200MG/10ML SUGAR FREE UDC PO PRN (18:00)
[2021-12-11] MEDS ORDERED: DEXTROSE 50% WATER 50ML SYRINGE IV PRN (18:00)
[2021-12-11] MEDS ORDERED: CLONIDINE 0.1MG TABLET PO PRN (18:00)
[2021-12-11] MEDS: INSULIN LISPRO 100 UNITS/ML SUBCUT SCH ×2 (18:30→21:00)
[2021-12-11 20:21] VITALS: BP 120/78
[2021-12-11] MEDS: BLOOD SUGAR DIAGNOSTIC STRIP TEST SCH (21:00)
[2021-12-11 21:03] VITALS: BP 120/78
[2021-12-11] MEDS ORDERED: INSULIN GLARGINE UD 100 UNITS/ML SYR SUBCUT SCH (22:00)
[2021-12-11] MEDS: ENOXAPARIN 40MG/0.4ML SYR SUBCUT SCH (22:18)
[2021-12-11] MEDS: DILTIAZEM HCL 30MG TABLET PO SCH (22:19)
[2021-12-11] MEDS: OMEPRAZOLE 20MG CAPSULE EXTENDED RELEASE PO SCH (22:19)
[2021-12-11] MEDS: GUAIFENESIN 600MG ER TABLET PO SCH (22:19)
[2021-12-11] MEDS: SODIUM CHLORIDE 0.9% INJ 3ML FLUSH IVF SCH (22:19)
[2021-12-11] MEDS: INSULIN GLARGINE UD 100 UNITS/ML SYR SUBCUT SCH (22:20)
[2021-12-12] VITALS: BP 111/68
[2021-12-12 04:00] VITALS: BP 125/51
[2021-12-12] MEDS: INSULIN LISPRO 100 UNITS/ML SUBCUT SCH ×4 (05:24→21:00)
[2021-12-12] MEDS: BLOOD SUGAR DIAGNOSTIC STRIP TEST SCH ×4 (05:24→21:00)
[2021-12-12] MEDS: DILTIAZEM HCL 30MG TABLET PO SCH ×3 (05:49→22:00)
[2021-12-12] MEDS: SODIUM CHLORIDE 0.9% INJ 3ML FLUSH IVF SCH ×3 (05:58→21:59)
[2021-12-12] MEDS: OMEPRAZOLE 20MG CAPSULE EXTENDED RELEASE PO SCH ×2 (05:58→21:59)
[2021-12-12 08:00] VITALS: BP 115/56
[2021-12-12] MEDS ORDERED: FUROSEMIDE 40MG/4ML VIAL IVP SCH (09:00)
[2021-12-12] MEDS: GUAIFENESIN 600MG ER TABLET PO SCH ×2 (09:17→21:59)
[2021-12-12] MEDS: METOLAZONE 10MG TABLET PO SCH (09:18)
[2021-12-12] MEDS: FOLIC ACID 1MG TABLET PO SCH (09:18)
[2021-12-12] MEDS: METHADONE HCL 10MG TABLET PO SCH (10:28)
[2021-12-12 12:00] VITALS: BP 132/70
[2021-12-12 16:00] VITALS: BP 114/60
[2021-12-12] MEDS: IPRATROPIUM/ALBUTEROL 0.5-3(2.5)MG/3ML NEB HHN SCH (16:38)
[2021-12-12] MEDS: FUROSEMIDE 40MG/4ML VIAL IVP SCH (18:35)
[2021-12-12 20:00] VITALS: BP 103/54
[2021-12-12] MEDS: ENOXAPARIN 40MG/0.4ML SYR SUBCUT SCH (21:59)
[2021-12-12] MEDS: INSULIN GLARGINE UD 100 UNITS/ML SYR SUBCUT SCH (22:02)
[2021-12-13] VITALS: BP 112/51
[2021-12-13] MEDS: IPRATROPIUM/ALBUTEROL 0.5-3(2.5)MG/3ML NEB HHN SCH ×3 (01:23→14:47)
[2021-12-13 04:00] VITALS: BP 123/53
[2021-12-13] MEDS: OMEPRAZOLE 20MG CAPSULE EXTENDED RELEASE PO SCH ×2 (05:17→21:42)
[2021-12-13] MEDS: DILTIAZEM HCL 30MG TABLET PO SCH ×3 (05:17→21:41)
[2021-12-13] MEDS: SODIUM CHLORIDE 0.9% INJ 3ML FLUSH IVF SCH ×3 (05:18→21:41)
[2021-12-13] MEDS: BLOOD SUGAR DIAGNOSTIC STRIP TEST SCH ×4 (05:18→21:42)
[2021-12-13] MEDS: INSULIN LISPRO 100 UNITS/ML SUBCUT SCH ×4 (05:18→21:56)
[2021-12-13 06:24] LABS: CHLORIDE 93 mEq/L (98-107)
[2021-12-13 06:30] LABS: PHOSPHORUS 3.7 mg/dL (2.5-4.9)
[2021-12-13 08:00] VITALS: BP 119/62
[2021-12-13] MEDS: GUAIFENESIN 600MG ER TABLET PO SCH ×2 (08:03→21:42)
[2021-12-13] MEDS: FUROSEMIDE 40MG/4ML VIAL IVP SCH ×2 (08:03→09:00)
[2021-12-13] MEDS: FOLIC ACID 1MG TABLET PO SCH (08:03)
[2021-12-13] MEDS: METOLAZONE 10MG TABLET PO SCH (08:03)
[2021-12-13] MEDS: METHADONE HCL 10MG TABLET PO SCH (08:05)
[2021-12-13] MEDS ORDERED: POTASSIUM CHLORIDE 20MEQ TABLET SR PO SCH (11:45)
[2021-12-13 12:00] VITALS: BP 130/70
[2021-12-13] MEDS ORDERED: POLYETHYLENE GLYCOL 3350 (17GM) 1 DOSE PACK PO NR (15:45)
[2021-12-13 16:00] VITALS: BP 109/55
[2021-12-13 16:18] LABS: BG BASE EXCESS 13.3 mmol/L (-2.0-2.0); BG CARBOXYHEMOGLOBIN 0.7 % (0.5-1.5); BG DEOXYHEMOGLOBIN 37.9 % (0.0-5.0); BG FRACTION INSPIRED OXYGEN 21; BG HCO3 ACT 41.7 mmol/L (22.0-26.0); BG METHEMOGLOBIN 0.2 % (0.0-1.5); BG OXYGEN SATURATION 61.8 % (92.0-98.5); BG OXYHEMOGLOBIN 61.2 % (94.0-97.0); BG PCO2 70.1 mmHg (35.0-45.0); BG PH 7.392 (7.350-7.450); BG PO2 32.4 mmHg (75.0-100.0); BG SAMPLE SITE RIGHT BRACHIAL; BG TOTAL HEMOGLOBIN 14.2 g/dL (12.0-18.0); BG VENT MODE ROOM AIR
[2021-12-13] MEDS ORDERED: PREDNISONE 20MG TABLET PO NR (16:30)
[2021-12-13] MEDS: DOCUSATE SODIUM 100MG CAPSULE PO SCH (16:52)
[2021-12-13] MEDS: POTASSIUM CHLORIDE 20MEQ/PACKET PO SCH (16:52)
[2021-12-13] MEDS ORDERED: FUROSEMIDE 40MG TABLET PO SCH (17:15)
[2021-12-13 20:00] VITALS: BP 124/62
[2021-12-13] MEDS: ENOXAPARIN 40MG/0.4ML SYR SUBCUT SCH (21:42)
[2021-12-13] MEDS: INSULIN GLARGINE UD 100 UNITS/ML SYR SUBCUT SCH (21:56)
[2021-12-14] VITALS: BP 108/76
[2021-12-14] MEDS: IPRATROPIUM/ALBUTEROL 0.5-3(2.5)MG/3ML NEB HHN SCH ×3 (01:03→15:23)
[2021-12-14] MEDS: BUDESONIDE 0.5MG/2ML NEB HHN SCH ×2 (01:03→09:59)
[2021-12-14 04:00] VITALS: BP 126/71
[2021-12-14] MEDS: SODIUM CHLORIDE 0.9% INJ 3ML FLUSH IVF SCH ×2 (05:59→12:48)
[2021-12-14] MEDS: BLOOD SUGAR DIAGNOSTIC STRIP TEST SCH ×2 (06:00→12:48)
[2021-12-14] MEDS: OMEPRAZOLE 20MG CAPSULE EXTENDED RELEASE PO SCH (06:01)
[2021-12-14] MEDS: DILTIAZEM HCL 30MG TABLET PO SCH ×2 (06:01→14:00)
[2021-12-14] MEDS: INSULIN LISPRO 100 UNITS/ML SUBCUT SCH ×2 (06:32→12:40)
[2021-12-14 07:43] LABS: CHLORIDE 93 mEq/L (98-107)
[2021-12-14 08:00] VITALS: BP 128/71
[2021-12-14] MEDS: METOLAZONE 10MG TABLET PO SCH (09:29)
[2021-12-14] MEDS: FOLIC ACID 1MG TABLET PO SCH (09:29)
[2021-12-14] MEDS: GUAIFENESIN 600MG ER TABLET PO SCH (09:29)
[2021-12-14] MEDS: METHADONE HCL 10MG TABLET PO SCH (09:31)
[2021-12-14] MEDS: POTASSIUM CHLORIDE 20MEQ/PACKET PO SCH (09:31)
[2021-12-14] MEDS: DOCUSATE SODIUM 100MG CAPSULE PO SCH (09:32)
[2021-12-14 12:00] VITALS: BP 126/64
[2021-12-14 15:09] VITALS: BP 126/64
[2021-12-14] MEDS ORDERED: FAMOTIDINE 20MG TABLET PO SCH (21:00)
== END 2021-12-14 16:40 | disposition home or self-care (01) | DRG 291 ==
LOC: ER 09:46 → 8WST 10:25 → EDBEDREQ 10:27 → ENRESERV 19:31
PROVIDERS: ADMIT Internal Medicine; ATTEND Internal Medicine
DX: I11.0 Hypertensive heart disease with heart failure (principal); I50.33 Acute on chronic diastolic (congestive) heart failure; E66.9 Obesity, unspecified; E87.6 Hypokalemia; M10.9 Gout, unspecified; E11.9 Type 2 diabetes mellitus without complications; Z20.822 Contact with and (suspected) exposure to COVID-19; J44.9 Chronic obstructive pulmonary disease, unspecified; Z82.49 Family history of ischemic heart disease and other diseases of the circulatory system; Z86.718 Personal history of other venous thrombosis and embolism; Z98.1 Arthrodesis status; Z99.81 Dependence on supplemental oxygen; Z68.24 Body mass index [BMI] 24.0-24.9, adult; Z79.899 Other long term (current) drug therapy; Z87.01 Personal history of pneumonia (recurrent)
CPT/HCPCS: 36415; 36600; 71045; 80048; 80053; 82375; 82805; 82962; 83036; 83735; 83880; 84100; 84484; 85025; 87426; 93005; 93970; 99291; C1893; J1650; J1815; J1940; J7512; J7626